=== PATIENT | male | born 1970 | race African-American/Black ===

== ENCOUNTER 2019-08-12 16:37 | Emergency (ER) | payer OTHER, SELFPAY ==
[2019-08-12 16:48] VITALS: BP 117/65; PULSE 90; RESP 16; TEMP 36.9; O2SAT 98
--- NOTE | 2019-08-12 17:43 | ED.GENADULT ---
HPI - General Adult General Chief complaint: Upper Respiratory Infection Stated complaint: Sinus/back pain/bodyaches Time Seen by Provider: 08/12/19 17:43 Source: patient and RN notes reviewed Mode of arrival: ambulatory Limitations: no limitations History of Present Illness HPI narrative: 49-year-old male presents with complaints of chronic lower back and left upper back pain for the past 2 days. Denies new injuries or falls. Denies radiating pain, numbness, or tingling. Denies fever or chills. No upper or lower extremity pain or weakness. Exacerbating factors consist of prolong standing and bending. Denies nausea, vomiting, or abdominal pain. Denies problems with urinating or having a bowel movement, LBM today per patient and normal. No flank pain or hematuria or dysuria. Complaints of upper respiratory infection, facial congestion, facial pain, cough, and intermittent headaches (not the worst of her life) for the past 2-3 weeks. Vitamin C 500mg with little to no relief. No facial swelling. Dry cough, intermittent productive cough (yellow phlegm). Nasal congestion and rhinorrhea. No chest pain or shortness of breath. Exacerbating factors consist of smoke exposure. Denies fever or chills. Denies nausea, vomiting, and abdominal pain. Tolerating po intake well. Remains active. Some parts of this dictation were generated by voice recognition software and may contain typographical and/or grammatical inaccuracies. Related Data Allergies Allergy/AdvReac Type Severity Reaction Status Date / Time ciprofloxacin Allergy Intermediate Swelling Verified 05/21/19 00:22 codeine Allergy Intermediate panic Verified 05/21/19 00:22 attack Review of Systems Review of Systems: Narrative: CONSTITUTIONAL: Denies fever, chills, sweats. EYES: Denies visual changes, redness, discharge. ENT: Complains of rhinorrhea, congestion, facial congestion, facial pain. Denies sore throat, otalgia. CARDIOVASCULAR: Denies chest pain, palpitations, edema. RESPIRATORY: Denies dyspnea, wheezing. Complains of cough, intermittent productive. GASTROINTESTINAL: Denies abdominal pain, nausea, vomiting, diarrhea. GENITOURINARY: Denies dysuria, hematuria, abnormal discharge. SKIN: Denies rash or itching. MUSCULOSKELETAL: Complains of diffused lower back pain. Denies joint pain or myalgia. NEUROLOGIC: Denies numbness or focal weakness. Complains of intermittent CHENG. PSYCHIATRIC: Denies anxiety or depression. All systems reviewed & are unremarkable except as noted in HPI and below. [facility] Past Medical History Medical History Anxiety Back pain GERD (gastroesophageal reflux disease) Hyperlipemia Shoulder fracture, right Sinus problem Surgical History Surgical History History of back surgery History of shoulder surgery right shoulder Fx repair Family History Family History (Updated 08/12/19 @ 18:22 by JOSHUA Espinoza) Sibling Hypertension Social History Social History (Updated 08/12/19 @ 18:22 by JOSHUA Espinoza) Smoking packs per day: 0.5 Smoking cigarettes per day: 10.0 Smoking status: Smoker, status unknown Second hand tobacco smoke exposure: No Alcohol intake: current Substance use: current Substance use type: marijuana Living arrangements: with family Gender identity (if verbalized by the patient): Male Comments At time of signature, agree with nurse past medical, surgical, social, and family history. There is no relevant family history pertinent to the presenting complaint. Exam Narrative: Exam Narrative: GENERAL: This is a well-nourished, well-developed patient, in no apparent distress. Talks in full sentences without deficits and ambulates with steady gait without dyspnea. HEAD: normocephalic, atraumatic. EYES: PERRL. Sclera clear/white. Vision is grossly int
[2019-08-12] MEDS: KETOROLAC (*BKC) 60 MG/2 ML VIAL IM (18:02)
== END 2019-08-12 18:27 | disposition home or self-care (01) ==
PROVIDERS: Emergency Provider Nurse Practitioner Family
DX: M54.5 Low back pain (principal); J01.10 Acute frontal sinusitis, unspecified; F17.210 Nicotine dependence, cigarettes, uncomplicated; F41.9 Anxiety disorder, unspecified; K21.9 Gastro-esophageal reflux disease without esophagitis; E78.5 Hyperlipidemia, unspecified
CPT/HCPCS: 96372; 99213; G0463; J1885

== ENCOUNTER 2019-11-17 16:46 | Emergency (ER) | payer OTHER, SELFPAY ==
[2019-11-17 16:55] VITALS: BP 122/75; PULSE 78; RESP 16; TEMP 36.6; O2SAT 99
--- NOTE | 2019-11-17 16:59 | ED.GENADULT ---
HPI - General Adult General Chief complaint: Abdominal Pain Stated complaint: abdominal pain Time Seen by Provider: 11/17/19 16:59 Source: patient Mode of arrival: ambulatory Limitations: no limitations History of Present Illness HPI narrative: 49-year-old male patient presents to the [facility] with complaints of abdominal pain nausea vomiting that started approximately 4:00 today. Patient states he ate some Croatian food before going into work today states when he got to work he had an episode of vomiting. Patient states he only vomited one time. Patient states he does not feel nauseated at this time. Denies any diarrhea. Patient states last bowel movement was earlier this afternoon. Denies any fevers body aches or chills. Denies any chest pain or shortness of breath. Related Data Home Medications Medication Instructions Recorded Confirmed No Home Medications 11/17/19 11/17/19 Allergies Allergy/AdvReac Type Severity Reaction Status Date / Time ciprofloxacin Allergy Intermediate Swelling Verified 05/21/19 00:22 codeine Allergy Intermediate panic Verified 05/21/19 00:22 attack Review of Systems Review of Systems: Narrative: CONSTITUTIONAL: Denies fever, chills, or sweats. EYES: Denies visual changes, redness, or discharge. ENT: Denies rhinorrhea, congestion, sore throat, or otalgia. CARDIOVASCULAR: Denies chest pain, palpitations, or edema. RESPIRATORY: Denies cough or dyspnea. GASTROINTESTINAL: Denies abdominal pain, positive nausea, vomiting, denies diarrhea. GENITOURINARY: Denies dysuria or hematuria. SKIN: Denies rash or itching. MUSCULOSKELETAL: Denies back pain, joint pain, or myalgia. NEUROLOGIC: Denies headache, numbness, or weakness. PSYCHIATRIC: Denies anxiety or depression. [facility] Past Medical History Medical History Anxiety Back pain GERD (gastroesophageal reflux disease) Hyperlipemia Shoulder fracture, right Sinus problem Surgical History Surgical History History of back surgery History of shoulder surgery right shoulder Fx repair Family History Family History Sibling Hypertension Social History Social History Smoking packs per day: 0.5 Smoking cigarettes per day: 10.0 Smoking status: Smoker, status unknown Second hand tobacco smoke exposure: No Alcohol intake: current Substance use: current Substance use type: marijuana Gender identity (if verbalized by the patient): Male Comments At the time of my signature I agree with nursing past medical history, surgical, social, and family history. There is no relevant family history pertinent to the presenting complaint. Exam Narrative: Exam Narrative: GENERAL: Well-appearing, well-nourished, and in no acute distress. HEAD: Normocephalic, atraumatic. EYES: PERRLA and EOMI. ENT: Nares clear, no rhinorrhea or epistaxis. Mucous membranes moist. NECK: Supple. No lymphadenopathy CHEST: Clear to auscultation. No respiratory distress. HEART: Regular rate and rhythm. No murmur heard. Normal peripheral pulses. ABDOMEN: Soft, distended. No guarding, rebound tenderness, or rigid. No pulsatilla masses. Hyperactive bowel sounds present in all four quadrants. Tenderness noted to the left upper quadrant, left lower quadrant, and right upper quadrant on palpation. No organomegaly. Negative Aguilar?s sign. No periumbicial tenderness. No Supra public tenderness or distension. Good femoral pulses bilaterally. No hernia noted. No scars or surface trauma. EXTREMITIES: Normal range of motion. No edema. SKIN: Warm, dry, no rash. NEURO: No focal deficits. Alert and oriented x3. Course Vital Signs Vital signs: Vital Signs Temperature 36.6 C 11/17/19 16:55 Pulse Rate 78 11/17/19 16:55 Respiratory Rate
== END 2019-11-17 17:08 | disposition short-term general hospital (02) ==
PROVIDERS: Emergency Provider Nurse Practitioner Family
DX: R11.2 Nausea with vomiting, unspecified (principal); R10.12 Left upper quadrant pain; R10.32 Left lower quadrant pain; R10.11 Right upper quadrant pain; F17.210 Nicotine dependence, cigarettes, uncomplicated
CPT/HCPCS: 99212; G0463

== ENCOUNTER 2019-11-17 17:31 | Emergency (ER) | payer OTHER, SELFPAY ==
[2019-11-17 17:36] VITALS: PULSE 77; RESP 18; TEMP 36.8; O2SAT 99
[2019-11-17 18:05] LABS: Basophils Absolute Auto 0.1 K/mm3 (0.0-0.1); Basophils Percent Auto 1.7 % (0.2-1.2); Eosinophils Absolute Auto 0.1 K/mm3 (0-0.3); Hematocrit 48.6 % (42.0-52.0); Hemoglobin 16.1 g/dL (14.0-18.0); Immature Granulocyte Absolute 0.01 K/mm3 (0.00-0.031); Immature Granulocyte Percent A 0.2 % (0-0.5); Lymphocytes Absolute Auto 2.57 K/mm3 (0.9-3.2); Lymphocytes Percent Auto 39.4 % (18.3-44.2); Mean Corpuscular HGB Conc 33.1 g/dl (32-36); Mean Corpuscular Hemoglobin 28.3 pg (26-34); Mean Corpuscular Volume 85.4 fl (80-100); Mean Platelet Volume 9.6 fl (7.4-10.4); Monocytes Absolute Auto 0.5 K/mm3 (0.1-0.6); Neutrophils Absolute Auto 3.3 K/mm3 (1.3-6.7); Neutrophils Percent Auto 49.7 % (45.5-73.1); Platelet Count Result 202 k/mm3 (150-375); Red Blood Count 5.69 M/mm3 (4.6-6.20); Red Cell Distribution Width 14.2 % (11.5-14.5); White Blood Count 6.5 K/mm3 (4.5-10.0)
--- NOTE | 2019-11-17 18:10 | PC.NURSE ---
Pt states after eating lunch he started to have nausea and vomiting. Pt states he went to and after provider was pushing his abd he started having abd pain. Pt states he no longer has abd pain but has nausea. Pt states he has had surgery on his lower abd and back. Pt appears in NAD.
[2019-11-17 18:18] LABS: Alanine Aminotransferase 25 U/L (4-50); Albumin Level 4.3 g/dL (3.5-5.1); Alkaline Phosphatase 65 U/L (38-126); Aspartate Amino Transferase 39 U/L (17-59); Bilirubin,Total 0.5 mg/dL (0.2-1.3); Blood Urea Nitrogen 14 mg/dL (9-20); Carbon Dioxide 28 mmol/L (22-30); Chloride 105 mmol/L (98-107); Estimated CRCL calculation 70 ml/min; Estimated Glomerular Filt Rate > 60; Glucose 93 mg/dL (75-110); Lipase 70 U/L (23-300); Potassium 4.3 mmol/L (3.4-5.0); Sodium 137 mmol/L (137-145)
[2019-11-17 18:24] LABS: Add Urine Microscopic? NO; Appearance Urine Clear (Clear); Bilirubin Urine Negative (Negative); Blood Urine Negative (Negative); Color Urine Straw (Yellow); Glucose Urine UA Negative (Negative); Ketones Urine Negative (Negative); Leukocyte Esterase Ur Negative LEU/UL (Negative); Nitrate Urine Negative (Negative); Protein Urine Negative (Negative); Specific Grav Ur 1.012 (1.001-1.035); Urobilinogen Urine Negative mg/dL (<2.0)
--- NOTE | 2019-11-17 18:37 | ED.GENADULT ---
HPI - General Adult General Chief complaint: Abdominal Pain Stated complaint: abd pain Time Seen by Provider: 11/17/19 18:16 Source: patient History of Present Illness HPI narrative: 49 years old -[place] male, insignificant past medical history had a Wolof lunch at noon today, patient probably ate so fast, then vomited once. Went to urgent care, told him that you have some tenderness in the abdomen although the patient denies any abdominal pain. Patient was referred to the emergency room for further evaluation. Currently patient is awake alert oriented x4, denying any symptoms. Patient reports that he needs some medicine for postnasal discharge and nasal congestion also he been feeling anxious lately and would like antianxiety medication. Related Data Allergies Allergy/AdvReac Type Severity Reaction Status Date / Time ciprofloxacin Allergy Intermediate Swelling Verified 11/17/19 17:40 codeine Allergy Intermediate panic Verified 11/17/19 17:40 attack Review of Systems Review of Systems: Narrative: Review of systems cONSTITUTIONAL: Denies fever, chills, or sweats. EYES: Denies visual changes, redness, or discharge. ENT: Denies rhinorrhea, congestion, sore throat, or otalgia. CARDIOVASCULAR: Denies chest pain, palpitations, or edema. RESPIRATORY: Denies cough or dyspnea. GASTROINTESTINAL: Denies abdominal pain, nausea, vomiting, or diarrhea. GENITOURINARY: Denies dysuria or hematuria. SKIN: Denies rash or itching. MUSCULOSKELETAL: Denies back pain, joint pain, or myalgia. NEUROLOGIC: Denies headache, numbness, or weakness. PSYCHIATRIC: Denies anxiety or depression. [facility] Past Medical History Medical History Anxiety Back pain GERD (gastroesophageal reflux disease) Hyperlipemia Shoulder fracture, right Sinus problem Surgical History Surgical History History of back surgery History of shoulder surgery right shoulder Fx repair Family History Family History Sibling Hypertension Social History Social History Smoking packs per day: 0.5 Smoking cigarettes per day: 10.0 Smoking status: Smoker, status unknown Second hand tobacco smoke exposure: No Alcohol intake: current Substance use: current Substance use type: marijuana Gender identity (if verbalized by the patient): Male Exam Narrative: Exam Narrative: General appearance: Well-developed, well-nourished Skin: Normal color Head: Normocephalic, nontraumatic Eyes: Clear conjunctiva ENT: Oropharynx normal, ears normal, nose normal Neck: Supple, nontender Chest and respiratory: Airway patent, no respiratory distress, no accessory muscle use Heart: Regular rate/rhythm Abdomen: Soft, nontender, no organomegaly, quiet bowel sounds Vascular: Normal peripheral pulses, normal capillary refill. Musculoskeletal: Normal range of motion, nontender back Neurologic: Alert and oriented ?3, [employer] is normal as tested, no gross motor deficit Course Course Emergency Course: Stable Vital Signs Vital signs: Vital Signs Temperature 36.8 C 11/17/19 17:36 Pulse Rate 77 11/17/19 17:36 Respiratory Rate 18 11/17/19 17:36 Pulse Oximetry 99 11/17/19 17:36 Temperature 36.8 C 11/17/19 17:36 Pulse Rate 77 11/17/19 17:36 Respiratory Rate 18 11/17/19 17:36 Pulse Oximetry 99 11/17/19 17:36 Medical Decision Making MDM Narrative Medical decision making narrative: Patient vomited once after a Wolof meal. Currently asymptomatic, denying
--- NOTE | 2019-11-17 19:44 | PC.NURSE ---
Pt requested work note, left before receiving one stated he didn't feel like waiting.
== END 2019-11-17 19:44 | disposition home or self-care (01) ==
PROVIDERS: Emergency Provider Emergency Medicine
DX: R11.2 Nausea with vomiting, unspecified (principal); J30.1 Allergic rhinitis due to pollen; F41.9 Anxiety disorder, unspecified; K21.9 Gastro-esophageal reflux disease without esophagitis; E78.5 Hyperlipidemia, unspecified; F17.210 Nicotine dependence, cigarettes, uncomplicated
CPT/HCPCS: 36415; 80053; 81003; 83690; 85025; 99283

== ENCOUNTER 2019-12-10 13:21 | Emergency (ER) | payer OTHER, SELFPAY ==
--- NOTE | ~2019-12-10 | CT_ITS ---
EXAMINATION: CT cervical spine wo con DATE: 12/10/2019 17:59 INDICATION: Neck pain TECHNIQUE: Computed tomography (CT) of the cervical spine was performed without intravenous contrast. The dose-length product was 506 mGy-cm. Automated exposure control and iterative reconstruction tech nique were employed. COMPARISON: None FINDINGS: Vertebral body and disc heights are preserved. There is reversal of cervical lordosis, like ly due to muscle spasm or patient positioning. There are mild facet degenerative changes on the left at C2-3 and C3-4. No acute fracture or traumatic malalignment. Odontoid process within normal limits. Lung apices are unremarkable. Mastoids are pneumatized. IMPRESSION: 1. No acute abnormality of the cervical spine. 2: Mild cervical spondylosis. Reviewed, dictated and finalized at location A.
--- NOTE | ~2019-12-10 | CT_ITS ---
EXAMINATION: CT BRAIN W/O DATE: 12/10/2019 17:58 INDICATION: Headache for 2 weeks TECHNIQUE: Computed tomography (CT) of the head was performed without intravenous contrast. The dose- length product was 681.00 mGy-cm. Automated exposure control and iterative reconstruction technique w ere employed. COMPARISON: CT dated 09/30/2014 FINDINGS: Normal brain parenchymal volume for age. Normal alanis-white differentiation. No acute intrac ranial hemorrhage, infarction, mass or mass effect. No ventriculomegaly or midline shift. Midline sagittal images demonstrate a normal corpus callosum, c raniovertebral junction and sella turcica. Basilar cisterns are patent. Paranasal sinuses and mastoids are pneumatized. No depressed skull fractures. IMPRESSION: 1. No acute intracranial abnormality. Reviewed, dictated and finalized at location A.
[2019-12-10 14:45] VITALS: BP 118/75; PULSE 81; RESP 18; TEMP 36.9; O2SAT 97
[2019-12-10 16:24] VITALS: BP 124/92; PULSE 86; RESP 18; O2SAT 95
[2019-12-10] MEDS: ACETAMINOPHEN 500 MG TABLET 1000 MG PO (17:39)
[2019-12-10] MEDS: KETOROLAC (*BKC) 60 MG/2 ML VIAL IM (17:40)
--- NOTE | 2019-12-10 18:23 | ED.GENADULT ---
HPI - General Adult General Chief complaint: Unspecified Stated complaint: left sided h/a and left arm pain Time Seen by Provider: 12/10/19 16:30 Source: patient Mode of arrival: ambulatory Limitations: no limitations History of Present Illness HPI narrative: This is a 49 year old male that presents to the ER for intermittent headaches for the last 2 weeks. Also reports some neck pain that radiates into the left arm. Reports history of neck problems. No recent injury or trauma. Denies fever, vision changes, vomiting, numbness or weakness. Related Data Allergies Allergy/AdvReac Type Severity Reaction Status Date / Time ciprofloxacin Allergy Intermediate Swelling Verified 12/10/19 16:25 Review of Systems Review of Systems: Narrative: CONSTITUTIONAL: Denies fever EYES: Denies visual changes MUSCULOSKELETAL: Reports joint pain, and myalgia. NEUROLOGIC: Reports headache. Denies numbness, or weakness. All systems reviewed & are unremarkable except as noted in HPI and below PMFSH Social History Social History Smoking packs per day: 0.5 Smoking cigarettes per day: 10.0 Smoking status: Smoker, status unknown Second hand tobacco smoke exposure: No Alcohol intake: current Substance use: current Substance use type: marijuana Gender identity (if verbalized by the patient): Male Exam Narrative: Exam Narrative: GENERAL: Well-appearing, well-nourished, and in no acute distress. HEAD: Normocephalic, atraumatic. EYES: PERRLA and EOMI. ENT: Nares clear, no rhinorrhea or epistaxis. Mucous membranes moist. Oropharynx without tonsillar hypertrophy exudate or other lesions. Bilateral TMs pearly alanis non-bulging NECK: Supple. No adenopathy or masses. No midline spinal tenderness. Normal ROM CHEST: Clear to auscultation. No respiratory distress. No wheezes rales or rhonchi HEART: Regular rate and rhythm. No murmur heard. Normal peripheral pulses. EXTREMITIES: Normal range of motion. No edema. Strength equal in bilateral upper extremities (5/5) SKIN: Warm, dry, no rash. NEURO: No focal deficits. Alert and oriented x3. Cranial nerves II through XII grossly intact. Normal [id number] PSYCH: Normal mood and affect Course Vital Signs Vital signs: Vital Signs Temperature 98.5 F 12/10/19 14:45 Pulse Rate 81 12/10/19 14:45 Respiratory Rate 18 12/10/19 14:45 Blood Pressure 118/75 12/10/19 14:45 Pulse Oximetry 97 12/10/19 14:45 Temperature 98.5 F 12/10/19 14:45 Pulse Rate 86 12/10/19 16:24 Respiratory Rate 18 12/10/19 16:24 Blood Pressure 124/92 H 12/10/19 16:24 Pulse Oximetry 95 12/10/19 16:24 Medical Decision Making MDM Narrative Medical decision making narrative: Patient presents the emergency department for intermittent headaches and neck pain for the last 2 weeks. No known injury or trauma. Patient is afebrile and nontoxic-appearing. He is neurologically intact. CT scan of the brain and cervical spine are without acute findings. Patient updated on case findings. He is stable and felt appropriate for the outpatient evaluation. He was given warnings to return to the ER Vital Signs Vital Signs: Vital Signs Temperature 98.5 F 12/10/19 14:45 Pulse Rate 81 12/10/19 14:45 Respiratory Rate 18 12/10/19 14:45 Blood Pressure 118/75 12/10/19 14:45 Pulse Oximetry 97 12/10/19 14:45 Temperature 98.5 F 12/10/19 14:45 Pulse Rate 86 12/10/19 16:24 Respiratory Rate 18 12/10/19 16:24 Blood Pressure 124/92 H 12/10/19 16:24 Pulse Oximetry 95 12/10/19 16:24 Imaging Data Radiologist's impression: ITS Impressions Head CT 12/10/19 17:59 IMPRESSION: 1. No acute intracranial abnormality. Cervical Spine CT 12/10/19 18:04 IMPRESSION: 1. No acute abnormality of the cervical spine. 2: Mild cervical spondylosis. Critical Care Time Critical Care Time Critical Care Time: No Discharge
[2019-12-10 19:10] VITALS: BP 129/79; PULSE 68; RESP 18; O2SAT 97
== END 2019-12-10 19:11 | disposition home or self-care (01) ==
PROVIDERS: Emergency Provider Emergency Medicine
DX: R51 Headache (principal); M54.2 Cervicalgia; M47.812 Spondylosis without myelopathy or radiculopathy, cervical region; F17.210 Nicotine dependence, cigarettes, uncomplicated
CPT/HCPCS: 70450; 72125; 96372; 99284; A9270; J1885

== ENCOUNTER 2020-01-25 14:48 | Emergency (ER) | payer OTHER, SELFPAY ==
--- NOTE | ~2020-01-25 | CT_ITS ---
EXAMINATION: CT abdomen pelvis w con DATE: 01/25/2020 16:04 INDICATION: Abdomen pain for 2 days. TECHNIQUE: Computed tomography (CT) of the abdomen and pelvis was performed with 100 cc Omnipaque 350 intravenous contrast. The dose-length product was 660.83 mGy-cm. Automated exposure control and iter ative reconstruction technique were employed. COMPARISON: CT dated 08/30/2018 FINDINGS: Heart size normal. No significant pleural or pericardial effusion. No significant vascular abnormality. Small ileocolic lymph nodes are present, nonspecific. Prostate gland is enlarged. There is heterogeneous soft tissue at the cecum, suspicious for malignancy. Appendix is normal. No ly mphadenopathy. Small subcentimeter hypodensity of the liver, most likely benign. The spleen, pancreas , adrenal glands are unremarkable. Small subcentimeter hypodensities of the left kidney, most likely benign cysts. Gallbladder is present. There are surgical changes at L4-5 and L5-S1. IMPRESSION: 1. Heterogeneously enhancing soft tissue at the cecum, suspicious for adenocarcinoma. Recommend furth er clinical evaluation. No obstruction. Reviewed, dictated and finalized at location A. IMPRESSION: 1. Heterogeneously enhancing soft tissue at the cecum, suspicious for adenocarc inoma. Recommend further clinical evaluation. No obstruction.
[2020-01-25 14:50] VITALS: BP 122/79; PULSE 91; RESP 18; TEMP 36.1; O2SAT 99
--- NOTE | 2020-01-25 15:17 | ED.GENADULT ---
HPI - General Adult General Chief complaint: Abdominal Pain Stated complaint: ABD PAIN X2D Time Seen by Provider: 01/25/20 14:56 Source: patient History of Present Illness HPI narrative: Patient is a 49 y/o male complaining of right upper abdominal pain starting 2 days ago. He states that he was drinking Stu night and he is not sure if he had injury. He describes his pain as sharp and rates it as 8/10. There is some pain radiation to left abdomen. He has no vomiting, diarrhea or dysuria. Related Data Allergies Allergy/AdvReac Type Severity Reaction Status Date / Time ciprofloxacin Allergy Intermediate Swelling Verified 12/10/19 16:25 Review of Systems Constitutional: Constitutional: Denies chills, Denies fever(s), Denies headache(s) and Denies weakness Eyes: Eyes: Denies blurry vision ENT: Denies headache(s) and Denies neck pain Cardiovascular: Cardiovascular: Denies chest pain and Denies dyspnea Respiratory: Respiratory: Denies cough and Denies dyspnea Gastrointestinal: Gastrointestinal: Reports abdominal pain, Denies diarrhea, Denies nausea and Denies vomiting Genitourinary: Genitourinary: Denies hematuria and Denies dysuria Musculoskeletal: Musculoskeletal: Denies back pain and Denies neck pain Neurologic: Denies headache(s) and Denies weakness PMFSH Past Medical History Medical History Anxiety Back pain GERD (gastroesophageal reflux disease) Hyperlipemia Shoulder fracture, right Sinus problem Surgical History Surgical History History of back surgery History of shoulder surgery right shoulder Fx repair Family History Family History Sibling Hypertension Social History Social History Smoking packs per day: 0.5 Smoking cigarettes per day: 10.0 Smoking status: Smoker, status unknown Second hand tobacco smoke exposure: No Alcohol intake: current Substance use: current Substance use type: marijuana Gender identity (if verbalized by the patient): Male Exam Const: General: no acute distress and well developed Orientation/consciousness: oriented to person, oriented to place, oriented to time and patient oriented x3 HENMT: Head: normocephalic Ears: external ears normal General nose exam: Normal external nose present Eyes: General: appearance normal, both eyes and all related structures Conjunctivae: conjunctivae normal Neck: Neck: normal visual inspection and full ROM Chest: Chest palpation & inspection: normal inspection of the chest and no tenderness Resp: Effort & Inspection: normal respiratory effort Auscultation: clear to auscultation bilaterally Cardio: Rate: regular rate Rhythm: regular rhythm GI: GI Palp: No abdominal tenderness and Yes Soft to palpation Skin: General skin exam: normal color and turgor normal Neuro: General: oriented to person, oriented to place, oriented to time and patient oriented x3 Cognition (Neuro): normal cognition Extrem: General: normal to inspection, full ROM and no pedal edema Psych: Appearance: grossly normal Mental Status: mental status grossly normal Affect: normal affect Course Reevaluation(s) Reevaluation #1: Discussed with patient about his labs and CT results. Informed patient about suspicious lesion which may suggest colon ca. I advised patient to be admitted for urgent work up. However, he states that he does not want to be admitted because there is no one to take care of his child. I instructed him to contact his PCP or GI for further work up. Date: 01/25/20 Time: 17:17 Consultations Consultation #1: Discussed with Dr. Pietro Lopez (GI). He states that he will follow up with patient for colonoscopy. Date: 01/25/20 Time: 17:22 Vital Signs Vital signs: Vital Signs Temperature 36.1 C L 01/25/20 14:
[2020-01-25 15:23] LABS: Basophils Absolute Auto 0.1 K/mm3 (0.0-0.1); Basophils Percent Auto 0.9 % (0.2-1.2); Eosinophils Absolute Auto 0.2 K/mm3 (0-0.3); Eosinophils Percent Auto 2.1 % (0-4.4); Hematocrit 49.6 % (42.0-52.0); Hemoglobin 16.6 g/dL (14.0-18.0); Immature Granulocyte Absolute 0.04 K/mm3 (0.00-0.031); Immature Granulocyte Percent A 0.5 % (0-0.5); Lymphocytes Absolute Auto 2.44 K/mm3 (0.9-3.2); Lymphocytes Percent Auto 28.8 % (18.3-44.2); Mean Corpuscular HGB Conc 33.5 g/dl (32-36); Mean Corpuscular Hemoglobin 28.4 pg (26-34); Mean Corpuscular Volume 84.8 fl (80-100); Mean Platelet Volume 10.1 fl (7.4-10.4); Monocytes Absolute Auto 0.5 K/mm3 (0.1-0.6); Monocytes Percent Auto 6.1 % (2.6-8.5); Neutrophils Absolute Auto 5.2 K/mm3 (1.3-6.7); Neutrophils Percent Auto 61.6 % (45.5-73.1); Platelet Count Result 216 k/mm3 (150-375); Red Blood Count 5.85 M/mm3 (4.6-6.20); Red Cell Distribution Width 14.6 % (11.5-14.5); White Blood Count 8.5 K/mm3 (4.5-10.0)
[2020-01-25 15:26] LABS: Add Urine Microscopic? YES; Appearance Urine Clear (Clear); Bilirubin Urine Negative (Negative); Blood Urine 1+ (Negative); Color Urine Yellow (Yellow); Glucose Urine UA Negative (Negative); Ketones Urine Negative (Negative); Leukocyte Esterase Ur Negative LEU/UL (Negative); Mucus Urine Rare /lpf; Nitrate Urine Negative (Negative); Protein Urine Negative (Negative); RBC Urine 0-2 /hpf (0-2); Specific Grav Ur 1.015 (1.001-1.035); Squamous Epithelial Cell Urine Rare /hpf (Few); Urobilinogen Urine Negative mg/dL (<2.0); WBC Urine 0-3 /hpf
[2020-01-25 15:36] LABS: Alanine Aminotransferase 18 U/L (4-50); Albumin Level 4.2 g/dL (3.5-5.1); Alkaline Phosphatase 89 U/L (38-126); Anion Gap 6 mmol/L (8-16); Aspartate Amino Transferase 29 U/L (17-59); Bilirubin,Total 0.4 mg/dL (0.2-1.3); Blood Urea Nitrogen 13 mg/dL (9-20); Calcium 8.9 mg/dL (8.4-10.2); Carbon Dioxide 25 mmol/L (22-30); Chloride 106 mmol/L (98-107); Estimated Glomerular Filt Rate > 60; Glucose 89 mg/dL (75-110); Lipase 76 U/L (23-300); Potassium 4.3 mmol/L (3.4-5.0); Sodium 137 mmol/L (137-145)
[2020-01-25 17:00] VITALS: BP 135/60; PULSE 70; RESP 12; O2SAT 99
== END 2020-01-25 17:26 | disposition home or self-care (01) ==
PROVIDERS: Emergency Medicine; Emergency Provider Emergency Medicine; PCP Emergency Medicine
DX: K63.9 Disease of intestine, unspecified (principal); K21.9 Gastro-esophageal reflux disease without esophagitis; E78.5 Hyperlipidemia, unspecified; F17.210 Nicotine dependence, cigarettes, uncomplicated
CPT/HCPCS: 36415; 74177; 80053; 81001; 83690; 85025; 99284; Q9967

== ENCOUNTER 2020-05-14 22:41 | Emergency (ER) | payer OTHER, SELFPAY ==
[2020-05-14 22:49] VITALS: BP 125/90; PULSE 93; RESP 14; TEMP 36.4; O2SAT 99
--- NOTE | 2020-05-14 22:57 | ECG_ITS ---
Measurements Intervals [place] Rate: 78 P: 65 [place]: 142 QRS: -33 QRSD: 85 T: -22 QT: 348 QTc: 398 Interpretive Statements SINUS RHYTHM POSSIBLE LEFT ATRIAL ENLARGEMENT LEFT AXIS DEVIATION EARLY PRECORDIAL R/S TRANSITION NONSPECIFIC T-WAVE ABNORMALITY- INF/LAT LEADS BASELINE WANDER- II, III, V1-V3 BORDERLINE ECG Electronically Signed On 05-15-2020 9:23:12 DIRECTOR SEMICONDUCTOR by Cyril Leroy D.O.
[2020-05-14 23:06] LABS: Glucose Point of Care 118 (65-105)
[2020-05-14 23:09] LABS: Basophils Absolute Auto 0.1 K/mm3 (0.0-0.1); Basophils Percent Auto 1.3 % (0.2-1.2); Eosinophils Absolute Auto 0.3 K/mm3 (0-0.3); Hematocrit 49.9 % (42.0-52.0); Immature Granulocyte Absolute 0.02 K/mm3 (0.00-0.031); Immature Granulocyte Percent A 0.2 % (0-0.5); Lymphocytes Percent Auto 39.5 % (18.3-44.2); Mean Corpuscular HGB Conc 34.1 g/dl (32-36); Mean Corpuscular Hemoglobin 29.6 pg (26-34); Mean Corpuscular Volume 86.8 fl (80-100); Mean Platelet Volume 9.7 fl (7.4-10.4); Monocytes Absolute Auto 0.6 K/mm3 (0.1-0.6); Neutrophils Absolute Auto 4.7 K/mm3 (1.3-6.7); Platelet Count Result 209 k/mm3 (150-375); Red Blood Count 5.75 M/mm3 (4.6-6.20); Red Cell Distribution Width 14.4 % (11.5-14.5); White Blood Count 9.4 K/mm3 (4.5-10.0)
[2020-05-14 23:21] LABS: Anion Gap 8 mmol/L (8-16); Blood Urea Nitrogen 18 mg/dL (9-20); Calcium 8.9 mg/dL (8.4-10.2); Carbon Dioxide 27 mmol/L (22-30); Chloride 103 mmol/L (98-107); Estimated Glomerular Filt Rate > 60; Glucose 118 mg/dL (75-110); Sodium 138 mmol/L (137-145)
--- NOTE | 2020-05-14 23:35 | ED.NECK ---
HPI - Neck Pain/Injury General Chief Complaint: Neck Pain/Injury Stated Complaint: neck pain Time Seen by Provider: 05/14/20 23:35 Source: patient Mode of arrival: ambulatory Limitations: no limitations History of Present Illness HPI Narrative: Patient is a 49-year-old male with a history of chronic neck pain secondary to an accident several months ago who presents for evaluation of muscle pain in his left neck. Patient states this worsened acutely this evening. He only has pain when he turns his neck or looks down. Reports a tingling sensation in his left hand without a decrease in strength. He reports pain in his left neck area without shoulder pain, chest pain or shortness of breath. No nausea, vomiting or diaphoresis. No recent falls or injury. Patient states he has a neurosurgeon in [place] who he has been following with and has a follow-up appointment in June. Patient denies any difficulty with speech, lower leg weakness or numbness. Patient states he wanted to be evaluated to make sure that he cannot become paralyzed from moving his neck. Related Data Allergies Allergy/AdvReac Type Severity Reaction Status Date / Time ciprofloxacin Allergy Intermediate Swelling Verified 12/10/19 16:25 Review of Systems Review of Systems: Narrative: CONSTITUTIONAL: Denies fever EYES: Denies visual changes ENT: Denies rhinorrhea, congestion, sore throat, or otalgia. CARDIOVASCULAR: Denies chest pain, palpitations, or edema. RESPIRATORY: Denies cough or dyspnea. GASTROINTESTINAL: Denies abdominal pain, nausea, vomiting, or diarrhea. GENITOURINARY: Denies dysuria or hematuria. SKIN: Denies rash or itching. MUSCULOSKELETAL: Denies back pain, reports neck pain, reports soreness in the muscle in his left neck NEUROLOGIC: Denies headache, numbness, or weakness. [facility] Past Medical History Medical History (Updated 05/15/20 @ 00:00 by Juana Campbell MD) Anxiety Back pain GERD (gastroesophageal reflux disease) Hyperlipemia Shoulder fracture, right Sinus problem Surgical History Surgical History History of back surgery History of shoulder surgery right shoulder Fx repair Family History Family History Sibling Hypertension Social History Social History Smoking packs per day: 0.5 Smoking cigarettes per day: 10.0 Smoking status: Smoker, status unknown Second hand tobacco smoke exposure: No Alcohol intake: current Substance use: current Substance use type: marijuana Gender identity (if verbalized by the patient): Male Exam Narrative: Exam Narrative: GENERAL: Awake, alert, conversant HEAD: Normocephalic, atraumatic. EYES: PERRLA and EOMI. ENT: Nares clear, no rhinorrhea or epistaxis. Mucous membranes moist. NECK: Supple. No midline cervical tenderness. Tenderness over the left-sided sternocleidomastoid which exactly reproduces pain. No anterior or posterior cervical lymphadenopathy. There is pain when he moves his left neck to the left and to the right. Mild pain with flexion and extension. No ecchymoses, edema, rash or mass. Tenderness over the left trapezius. CHEST: No respiratory distress, breathing even and non labored HEART: Regular rate, sinus rhythm ABDOMEN:Non distended, non tender EXTREMITIES: Normal range of motion. No edema. Intact sensation left upper extremity in median, ulnar, radial nerve distribution. Radial pulse 2+. Capillary refill less than 3 seconds. SKIN: Warm, dry, no rash. NEURO:No focal deficits. Alert and oriented x3. Finger to nose intact bilaterally. EOMs intact without nystagmus. No facial droop/asymmetry noted bilaterally. Grimace intact. Intact sensation in face. Hearing intact bilaterally. Shoulder shrug intact. Strength 5/5 bilateral upper extremities. Strength 5/5 bilateral lower extremities. Reflexes 2+
[2020-05-15] MEDS: ACETAMINOPHEN 500 MG TABLET 1000 MG PO (00:55)
[2020-05-15] MEDS: KETOROLAC (*BKC) 60 MG/2 ML VIAL 30 MG IM (00:56)
== END 2020-05-15 01:00 | disposition home or self-care (01) ==
PROVIDERS: Emergency Provider Emergency Medicine; PCP Emergency Medicine
DX: S16.1XXA Strain of muscle, fascia and tendon at neck level, initial encounter (principal); X58.XXXA Exposure to other specified factors, initial encounter; K21.9 Gastro-esophageal reflux disease without esophagitis; E78.5 Hyperlipidemia, unspecified
CPT/HCPCS: 36415; 80048; 82948; 85025; 93005; 96372; 99283; A9270; J1885

== ENCOUNTER 2020-10-28 16:53 | Emergency (ER) | payer OTHER, SELFPAY ==
[2020-10-28 17:07] VITALS: BP 122/86; PULSE 80; RESP 16; TEMP 36.2; O2SAT 99
--- NOTE | 2020-10-28 18:19 | ED.GENADULT ---
HPI - General Adult General Chief complaint: Upper Respiratory Infection Stated complaint: sore throat Time Seen by Provider: 10/28/20 18:10 Source: patient and RN notes reviewed Mode of arrival: ambulatory Limitations: no limitations History of Present Illness HPI narrative: Patient presents today complaining of a sore throat since this morning. He believes it may be due to the [place] food he ate last night. Denies a scratching sensation or food getting caught in his throat. Associated symptoms include postnasal drip. Denies congestion, rhinorrhea, cough, fever, shortness of breath, difficulty swallowing. Currently rates his pain 5/10 and has been taking no [id number] treatment prior to arrival. MD complaint: Sore throat Related Data Home Medications Medication Instructions Recorded Confirmed meloxicam 7.5 mg PO BID 10/28/20 10/28/20 sertraline 100 mg PO DAILY 10/28/20 10/28/20 Allergies Allergy/AdvReac Type Severity Reaction Status Date / Time ciprofloxacin Allergy Intermediate Swelling Verified 12/10/19 16:25 Review of Systems Review of Systems: Narrative: CONSTITUTIONAL: Denies body aches, fever, chills, or sweats. EYES: Denies visual changes, redness, or discharge. ENT: Denies rhinorrhea, congestion, or otalgia.+ Sore throat, postnasal drip CARDIOVASCULAR: Denies chest pain, palpitations, or edema. RESPIRATORY: Denies cough or dyspnea. GASTROINTESTINAL: Denies abdominal pain, nausea, vomiting, or diarrhea. GENITOURINARY: Denies dysuria or hematuria. SKIN: Denies rash, itching, or wounds. MUSCULOSKELETAL: Denies back pain, joint pain, or myalgia. NEUROLOGIC: Denies headache, numbness, tingling, or weakness. PSYCH: Denies depression or anxiety. [facility] Past Medical History Medical History (Updated 10/28/20 @ 18:19 by Roxy Allred, WET TRIMMER, ) Anxiety Back pain GERD (gastroesophageal reflux disease) Hyperlipemia Shoulder fracture, right Sinus problem Surgical History Surgical History History of back surgery History of shoulder surgery right shoulder Fx repair Family History Family History Sibling Hypertension Social History Social History Smoking packs per day: 0.5 Smoking cigarettes per day: 10.0 Smoking status: Smoker, status unknown Second hand tobacco smoke exposure: No Alcohol intake: current Substance use: current Substance use type: marijuana Gender identity (if verbalized by the patient): Male Comments At time of signature, I have reviewed and agree with nursing past medical, surgical, social and family history unless otherwise noted. Please see nursing chart for further information. There is no relevant family history pertinent to the presenting complaint Exam Narrative: Exam Narrative: GENERAL: Well-appearing, well-nourished, and in no acute distress. HEAD: Normocephalic, atraumatic. EYES: EOMI. No redness or drainage. Conjunctivae normal. ENT: Mucous membranes pink and moist. Nares clear. No rhinorrhea. TMs normal bilaterally. Throat mildly erythematous without edema or exudate. Uvula midline. NECK: Normal AROM. Supple. No lymphadenopathy. CHEST: No respiratory distress. Clear to auscultation. HEART: Regular rate and rhythm. No murmur appreciated. Normal peripheral pulses. EXTREMITIES: Normal range of motion. No edema. SKIN: Warm, dry, no rash. Capillary refill normal. Normal skin turgor. NEURO: No focal deficits. Alert and oriented x3. Gait steady. PSYCH: Normal affect. No signs of depression or anxiety. Course Vital Signs Vital signs: Vital Signs Temperature 97.2 F L 10/28/20 17:07 Pulse Rate 80 10/28/20 17:07 Respiratory Rate 16 10/28/20 17:07 Blood Pressure 122/86 10/28/20 17:07 Pulse Oximetry 99 10/28/20 17:07 Temperature 97.2 F L 10/28/20 1
== END 2020-10-28 18:27 | disposition home or self-care (01) ==
PROVIDERS: Emergency Provider Nurse Practitioner; PCP Emergency Medicine
DX: J02.9 Acute pharyngitis, unspecified (principal)
CPT/HCPCS: 87081; 87880; 99213; G0463

== ENCOUNTER 2020-11-29 10:17 | Emergency (ER) | payer OTHER, SELFPAY ==
--- NOTE | ~2020-11-29 | XR_ITS ---
EXAMINATION: XR ribs LT 2V w CXR 2V DATE: 11/29/2020 10:52 INDICATION: Left anterior chest pain. TECHNIQUE: Frontal and lateral views of the chest and 2 views of the left ribs on a total of 6 radiog raphs were obtained. COMPARISON: Chest 2 views 10/17/2018 FINDINGS: CHEST TWO VIEWS: There is no pneumonia, pleural effusion, pneumothorax. The heart size is normal. LEFT RIBS: There is no rib fracture. There are changes of anterior and posterior fusion procedures at L5-S1. There are changes of disc replacement at L4-L5. IMPRESSION: 1. No etiology for the patient's symptoms. Reviewed, dictated and finalized at location A.
[2020-11-29 10:26] VITALS: BP 126/94; PULSE 75; RESP 12; TEMP 36.6; O2SAT 99
--- NOTE | 2020-11-29 10:43 | PC.NURSE ---
Pt taken to xray via wheelchair
--- NOTE | 2020-11-29 10:56 | ED.CHESTPAIN ---
HPI - Chest Pain General Chief Complaint: Chest Pain Stated Complaint: Sneezed and chest hurts Time Seen by Provider: 11/29/20 10:18 Source: patient and RN notes reviewed Mode of arrival: ambulatory Limitations: no limitations History of Present Illness HPI narrative: Patient is a 50-year-old male who presents to emergency department for evaluation of chest, midsternal chest pain that began today after sneezing pain is worse with palpation and activity patient denies URI symptoms or other complaints presents in no distress has not taken anything for symptoms Related Data Home Medications Medication Instructions Recorded Confirmed meloxicam 7.5 mg PO BID 10/28/20 10/28/20 sertraline 100 mg PO DAILY 10/28/20 10/28/20 Allergies Allergy/AdvReac Type Severity Reaction Status Date / Time ciprofloxacin Allergy Intermediate Swelling Verified 11/29/20 10:42 Review of Systems Review of Systems: All systems reviewed & are unremarkable except as noted in HPI and below PMFSH Past Medical History Medical History (Updated 11/29/20 @ 10:58 by Joe Walter PA-C) Anxiety Back pain GERD (gastroesophageal reflux disease) Hyperlipemia Shoulder fracture, right Sinus problem Surgical History Surgical History History of back surgery History of shoulder surgery right shoulder Fx repair Family History Family History Sibling Hypertension Social History Social History Smoking packs per day: 0.5 Smoking cigarettes per day: 10.0 Smoking status: Smoker, status unknown Second hand tobacco smoke exposure: No Alcohol intake: current Substance use: current Substance use type: marijuana Gender identity (if verbalized by the patient): Male Exam Narrative: Exam Narrative: GENERAL: Well-appearing, well-nourished, and in no acute distress. HEAD: Normocephalic, atraumatic. EYES: PERRLA and EOMI. ENT: Nares clear, no rhinorrhea or epistaxis. Mucous membranes moist. CHEST: Clear to auscultation. No respiratory distress. No wheezes rales or rhonchi. Tenderness of the left costochondral junctions HEART: Regular rate and rhythm. No murmur heard. . EXTREMITIES: Normal range of motion. No edema. SKIN: Warm, dry, no rash. NEURO: No focal deficits. Alert and oriented x3. Cranial nerves II through XII grossly intact PSYCH: Normal mood and affect. Course Course Emergency Course: Patient in the room no distress ABCs and vital signs intact and stable afebrile nontoxic-appearing Vital Signs Vital signs: Vital Signs Temperature 97.9 F 11/29/20 10:26 Pulse Rate 75 11/29/20 10:26 Respiratory Rate 12 11/29/20 10:26 Blood Pressure 126/94 H 11/29/20 10:26 Pulse Oximetry 99 11/29/20 10:26 Temperature 97.9 F 11/29/20 10:26 Pulse Rate 64 11/29/20 10:58 Respiratory Rate 12 11/29/20 10:26 Blood Pressure 126/94 H 11/29/20 10:26 Pulse Oximetry 99 11/29/20 10:26 MDM - Chest Pain MDM Narrative Medical decision making narrative: Patient with irritation of the chest wall consistent with costochondritis or strain status post sneezing hemodynamically stable no distress felt appropriate for outpatient reevaluation Imaging Data Radiologist's impression: ITS Impressions Ribs w/Chest X-Ray 11/29/20 10:55 IMPRESSION: 1. No etiology for the patient's symptoms. Discharge Plan Discharge Clinical Impression: Acute chest wall pain Patient Disposition: Home, Self-Care Condition: Stable Instructions: Antibiotic Form Additional Instructions: Follow up with your primary care provider within 1-2 days to set up for reevaluation. Go to ER for shortness of breath, difficulty breathing, chest pain, fever/chills, weakness, nauseau/vomitting, etc. or any other concerns. Take any prescribed medications
[2020-11-29 10:58] VITALS: PULSE 64
[2020-11-29] MEDS: KETOROLAC (*BKC) 60 MG/2 ML VIAL IM (11:20)
--- NOTE | 2020-11-29 15:47 | ECG_ITS ---
Measurements Intervals [place] Rate: 63 P: 68 [place]: 139 QRS: -28 QRSD: 93 T: -27 QT: 372 QTc: 383 Interpretive Statements SINUS RHYTHM BORDERLINE ST-T WAVE ABNORMALITY- INFERIOR LEADS BASELINE ARTIFACT- II, III, AVR, AVF, V1, V3-V6 BORDERLINE ECG Electronically Signed On 11-29-2020 16:03:21 CDT by Cyril Leroy D.O.
== END 2020-11-29 11:34 | disposition home or self-care (01) ==
PROVIDERS: Emergency Provider Emergency Medicine
DX: R07.89 Other chest pain (principal); F41.9 Anxiety disorder, unspecified; K21.9 Gastro-esophageal reflux disease without esophagitis; E78.5 Hyperlipidemia, unspecified; F17.210 Nicotine dependence, cigarettes, uncomplicated; R94.31 Abnormal electrocardiogram [ECG] [EKG]
CPT/HCPCS: 71046; 71100; 93005; 96372; 99283; J1885

== ENCOUNTER 2021-01-15 19:11 | Emergency (ER) | payer OTHER, SELFPAY ==
[2021-01-15 19:21] VITALS: BP 120/66; PULSE 81; RESP 16; TEMP 36.3; O2SAT 98
--- NOTE | 2021-01-15 19:32 | ED.BACK ---
HPI - Back Pain/Injury General Chief Complaint: Back Pain/Injury Stated Complaint: Back Pain Time Seen by Provider: 01/15/21 19:32 Source: patient and RN notes reviewed Mode of arrival: ambulatory Limitations: no limitations History of Present Illness HPI Narrative: 50 year old male who presents to [facility] care with complaints of back pain since about 2 hours ago when he picked up a stick out of the yard. Patient states that he is having pain mainly to the left medial area, feels tight and achy has back spams and chronic back pain issues. He reports that he has had lumbar spinal surgery and he also has some problems with his neck with neck surgery pending. Patient denies any radiation of pain to any extremity at this time or any feelings of tingling or numbness. Patient states that he has not taken any medications prior to arrival for his discomfort. MD elicited complaint: back pain Pertinent past history: prior back pain and back surgery Related Data Home Medications Medication Instructions Recorded Confirmed sertraline 100 mg PO DAILY 10/28/20 10/28/20 Allergies Allergy/AdvReac Type Severity Reaction Status Date / Time ciprofloxacin Allergy Intermediate Swelling Verified 01/15/21 19:34 Review of Systems Review of Systems: CONSTITUTIONAL: Denies fever, chills, or sweats. EYES: Denies visual changes, redness, or discharge. ENT: Denies rhinorrhea, congestion, sore throat, or otalgia. CARDIOVASCULAR: Denies chest pain, palpitations, or edema. RESPIRATORY: Denies cough or dyspnea. GASTROINTESTINAL: Denies abdominal pain, nausea, vomiting, or diarrhea. GENITOURINARY: Denies dysuria or hematuria. SKIN: Denies rash or itching. MUSCULOSKELETAL:Positive for left medial acute/chronic back pain, joint pain, or myalgia. NEUROLOGIC: Denies headache, numbness, or weakness. PSYCHIATRIC: Positive history of anxiety or depression. All systems reviewed & are unremarkable except as noted in HPI and below PMFSH Past Medical History Medical History (Updated 01/16/21 @ 00:03 by Dudley Akbar) Anxiety Back pain GERD (gastroesophageal reflux disease) Hyperlipemia Shoulder fracture, right Sinus problem Surgical History Surgical History History of back surgery History of shoulder surgery right shoulder Fx repair Family History Family History Sibling Hypertension Social History Social History Smoking packs per day: 0.5 Smoking cigarettes per day: 10.0 Smoking status: Smoker, status unknown Second hand tobacco smoke exposure: No Alcohol intake: current Substance use: current Substance use type: marijuana Gender identity (if verbalized by the patient): Male Comments At time of signature, agree with nursing past medical, surgical, social and family history. There is no relevant family history pertinent to the presenting complaint Exam Narrative: GENERAL: Well-appearing, well-nourished, and in no acute distress. HEAD: Normocephalic, atraumatic. EYES: PERRLA and EOMI. ENT: Nares clear, no rhinorrhea or epistaxis. Mucous membranes moist.TM's normal with throat normal NECK: Supple.no lymphadenopathy CHEST: Clear to auscultation. No respiratory distress.SAO2 98% on room air HEART: Regular rate and rhythm. No murmur heard. Normal peripheral pulses. ABDOMEN: Soft, nontender, nondistended, normal active bowel sounds. EXTREMITIES: Normal range of motion. No edema.Tightness noted to muscles along left medial back with patient verbalizing feeling as spasms, no radiation of his pain or any stated tingling or numbness. SKIN: Warm, dry, no rash. NEURO: No focal deficits. Alert and oriented x3. Course Vital Signs Vital signs: Vital Signs Temperature 36.3 C L 01/15/21 19:21 Pulse Rate 81 01/15/21 19:21 Respiratory Rate 16 01/15/21 19:2
== END 2021-01-15 19:42 | disposition home or self-care (01) ==
PROVIDERS: Emergency Provider Registered Nurse
DX: M62.830 Muscle spasm of back (principal); F17.210 Nicotine dependence, cigarettes, uncomplicated; K21.9 Gastro-esophageal reflux disease without esophagitis; E78.5 Hyperlipidemia, unspecified
CPT/HCPCS: 99213; G0463

== ENCOUNTER 2021-03-11 03:32 | Emergency (ER) | payer OTHER, SELFPAY ==
--- NOTE | ~2021-03-11 | XR_ITS ---
XR chest 1V portable DATE: 03/11/2021 04:02 INDICATION: Left chest pain for 9 hours TECHNIQUE: Portable upright AP chest on 03/21/2021 at 0353 hours COMPARISON: 11/29/2020 PA and lateral chest FINDINGS: Resection of the lateral aspect of the right clavicle. Normal heart size. No hilar or mediastinal enlargement. Minimal discoid or scarring in the lateral left lower lung. No pulmonary infiltrate or consolidation, pleural effusion or pulmonary vascular congestion or pneumothorax. IMPRESSION: Minimal discoid scarring in the lateral left lower lung; no active cardiopulmonary diseas e Reviewed, dictated and finalized at location A. IMPRESSION: Minimal discoid scarring in the lateral left lower lung; no active cardiopulmonary disease
[2021-03-11 03:37] VITALS: BP 119/89; PULSE 78; RESP 12; O2SAT 99
--- NOTE | 2021-03-11 03:41 | ECG_ITS ---
Measurements Intervals [place] Rate: 65 P: 66 [place]: 142 QRS: -14 QRSD: 84 T: -16 QT: 359 QTc: 375 Interpretive Statements SINUS RHYTHM WITH SINUS ARRHYTHMIA POSSIBLE LEFT ATRIAL ENLARGEMENT INCOMPLETE RIGHT BUNDLE BRANCH BLOCK BORDERLINE ST-T WAVE ABNORMALITY- INFERIOR LEADS BORDERLINE ECG Electronically Signed On 03-11-2021 7:15:10 CDT by Cyril Leroy D.O.
--- NOTE | 2021-03-11 04:00 | ED.GENADULT ---
HPI - General Adult General Chief complaint: Chest Pain Stated complaint: CP, neck pain, anxiety Time Seen by Provider: 03/11/21 03:36 History of Present Illness HPI narrative: Patient 50-year-old gentleman who presents the emergency department with chief complaint of chest wall pain. The patient reports that he is having neck pain issues started having pain in the left side of his neck radiating down his left arm. The patient states that tonight the pain went down into his left side of his chest the patient states is right on the sternal border and reports that it hurts whenever he palpates his chest. Patient states that he does have history of high cholesterol no prior history of cardiac disease but reports that he was concerned that it could be his heart given that he is 50 years old. Patient reports symptoms or not improved by anything and reports are worsened whenever he palpates his chest. Related Data Home Medications Medication Instructions Recorded Confirmed sertraline 100 mg PO DAILY 10/28/20 10/28/20 Allergies Allergy/AdvReac Type Severity Reaction Status Date / Time ciprofloxacin Allergy Intermediate Swelling Verified 03/11/21 04:15 Review of Systems Review of Systems: A 10 system review of systems was completed on the patient and is negative except for what is stated in the HPI. Nursing and ancillary documentation was reviewed. [facility] Past Medical History Medical History (Updated 03/11/21 @ 05:10 by Bhupinder Reyes MD) Anxiety Back pain GERD (gastroesophageal reflux disease) Hyperlipemia Shoulder fracture, right Sinus problem Surgical History Surgical History History of back surgery History of shoulder surgery right shoulder Fx repair Family History Family History Sibling Hypertension Social History Social History Smoking packs per day: 0.5 Smoking cigarettes per day: 10.0 Smoking status: Smoker, status unknown Second hand tobacco smoke exposure: No Alcohol intake: current Substance use: current Substance use type: marijuana Gender identity (if verbalized by the patient): Male Exam Narrative: GENERAL: Well-appearing, well-nourished, and in no acute distress. HEAD: Normocephalic, atraumatic. EYES: PERRLA and EOMI. ENT: Nares clear, no rhinorrhea or epistaxis. Mucous membranes moist. NECK: Supple. Tenderness to palpation in the paraspinous muscles of the left side of the neck CHEST: Clear to auscultation. No respiratory distress. Tenderness to palpation of the left sternal border HEART: Regular rate and rhythm. No murmur heard. Normal peripheral pulses. ABDOMEN: Soft, nontender, nondistended, normal active bowel sounds. EXTREMITIES: Normal range of motion. No edema. SKIN: Warm, dry, no rash. NEURO: No focal deficits. Alert and oriented x3. PSYCH: Normal mood and affect. Course Course Emergency Course: EKG sinus rhythm rate of [address] elevation or ST depression Vital Signs Vital signs: Vital Signs Pulse Rate 78 03/11/21 03:37 Respiratory Rate 12 03/11/21 03:37 Blood Pressure 119/89 03/11/21 03:37 Pulse Oximetry 99 03/11/21 03:37 Pulse Rate 74 03/11/21 04:36 Respiratory Rate 12 03/11/21 04:36 Blood Pressure 112/87 03/11/21 04:36 Pulse Oximetry 98 03/11/21 04:36 Medical Decision Making Vital Signs Vital Signs: Vital Signs Pulse Rate 78 03/11/21 03:37 Respiratory Rate 12 03/11/21 03:37 Blood Pressure 119/89 03/11/21 03:37 Pulse Oximetry 99 03/11/21 03:37 Pulse Rate 74 03/11/21 04:36 Respiratory Rate 12 03/11/21 04:36 Blood Pressure 112/87 03/11/21 04:36 Pulse Oximetry 98 03/11/21 04:36 Lab Data Result diagrams: 03/11/21 04:06 03/11/21 04:06 Labs: Lab
[2021-03-11] MEDS: ASPIRIN 81 MG CHEWABLE TABLET 324 MG PO (04:03)
[2021-03-11 04:17] VITALS: O2SAT 98
[2021-03-11 04:17] LABS: Basophils Absolute Auto 0.1 K/mm3 (0.0-0.1); Basophils Percent Auto 1.2 % (0.2-1.2); Eosinophils Absolute Auto 0.3 K/mm3 (0-0.3); Eosinophils Percent Auto 3.9 % (0-4.4); Hematocrit 48.9 % (42.0-52.0); Hemoglobin 16.2 g/dL (14.0-18.0); Immature Granulocyte Absolute 0.02 K/mm3 (0.00-0.031); Immature Granulocyte Percent A 0.2 % (0-0.5); Lymphocytes Absolute Auto 3.44 K/mm3 (0.9-3.2); Lymphocytes Percent Auto 41.8 % (18.3-44.2); Mean Corpuscular HGB Conc 33.1 g/dl (32-36); Mean Corpuscular Volume 87.5 fl (80-100); Mean Platelet Volume 9.9 fl (7.4-10.4); Monocytes Absolute Auto 0.7 K/mm3 (0.1-0.6); Neutrophils Absolute Auto 3.7 K/mm3 (1.3-6.7); Neutrophils Percent Auto 44.9 % (45.5-73.1); Platelet Count Result 207 k/mm3 (150-375); Red Blood Count 5.59 M/mm3 (4.6-6.20); Red Cell Distribution Width 14.5 % (11.5-14.5); White Blood Count 8.2 K/mm3 (4.5-10.0)
[2021-03-11 04:26] LABS: Alanine Aminotransferase 30 U/L (4-50); Albumin Level 4.3 g/dL (3.5-5.1); Alkaline Phosphatase 72 U/L (38-126); Anion Gap 6 mmol/L (8-16); Aspartate Amino Transferase 32 U/L (17-59); Bilirubin,Total 0.3 mg/dL (0.2-1.3); Blood Urea Nitrogen 16 mg/dL (9-20); Carbon Dioxide 26 mmol/L (22-30); Chloride 107 mmol/L (98-107); Estimated CRCL calculation 64 ml/min; Estimated Glomerular Filt Rate > 60; Glucose 106 mg/dL (65-110); Lipase 129 U/L (23-300); Potassium 3.9 mmol/L (3.4-5.0); Sodium 139 mmol/L (137-145)
[2021-03-11 04:32] LABS: INR 0.8; Prothrombin Time 11.5 Seconds (11.1-14.7)
[2021-03-11 04:33] LABS: Partial Thromboplastin Time 27.6 SECONDS (22.3-36.8)
[2021-03-11 04:36] VITALS: BP 112/87; PULSE 74; RESP 12; O2SAT 98
[2021-03-11 04:38] LABS: NT Pro B Type Natriuretic Pept 12 pg/mL (5-100); Troponin I < 0.012 ng/mL (0.000-0.034)
[2021-03-11 05:17] VITALS: BP 118/85; PULSE 67; RESP 17; O2SAT 98
== END 2021-03-11 05:17 | disposition home or self-care (01) ==
PROVIDERS: Emergency Provider Emergency Medicine; PCP Family Medicine
DX: R07.89 Other chest pain (principal); E78.5 Hyperlipidemia, unspecified
CPT/HCPCS: 36415; 71045; 80053; 83690; 83880; 84484; 85025; 85610; 85730; 93005; 99284; A9270

== ENCOUNTER 2021-03-25 10:32 | Emergency (ER) | payer OTHER, SELFPAY ==
[2021-03-25 10:41] VITALS: BP 117/79; PULSE 72; RESP 16; TEMP 36.7; O2SAT 99
--- NOTE | 2021-03-25 11:02 | ED.EAR ---
HPI - Ear Problem General Chief complaint: Ear Stated complaint: ear pain Time Seen by Provider: 03/25/21 11:12 Source: patient and RN notes reviewed Mode of arrival: ambulatory Limitations: no limitations History of Present Illness HPI Narrative: 50-year-old male presents concern for right ear pain for 2 days. He denies drainage from the ear. He reports mild sore throat, occasional headache, occasional postnasal drainage. He denies any body aches, chills, sweats, fever, cough. He denies tinnitus. He reports he has had bilateral hearing changes for a while that are not related to his new onset ear pain. He denies intervention. In a separate complaint he reports that his dark-colored foul-smelling urine. He denies dysuria, frequency, urgency, nausea or back pain. MD Complaint: ear pain Related Data Home Medications Medication Instructions Recorded Confirmed sertraline 100 mg PO DAILY 10/28/20 03/25/21 Allergies Allergy/AdvReac Type Severity Reaction Status Date / Time ciprofloxacin Allergy Intermediate Swelling Verified 03/25/21 11:06 Review of Systems Review of Systems: CONSTITUTIONAL: Denies malaise, chills, sweats, or fever. ENT: Reports rhinorrhea, congestion, sinus pain. Reports mild occasional sore throat, reports right ear pain without drainage, postnasal drainage. CARDIOVASCULAR: Denies chest pain, palpitations, or edema. RESPIRATORY: Denies cough or dyspnea. GASTROINTESTINAL: Denies abdominal pain, nausea, vomiting, diarrhea : Reports foul-smelling urine, dark-colored urine. Denies dysuria, frequency, urgency SKIN: Denies rash or itching. MUSCULOSKELETAL: Denies myalgia. NEUROLOGIC: Denies headache. All systems reviewed & are unremarkable except as noted in HPI and below PMFSH Past Medical History Medical History (Updated 03/25/21 @ 11:13 by Pepper Sanders NP) Anxiety Back pain GERD (gastroesophageal reflux disease) Hyperlipemia Shoulder fracture, right Sinus problem Surgical History Surgical History History of back surgery History of shoulder surgery right shoulder Fx repair Family History Family History Sibling Hypertension Social History Social History Smoking packs per day: 0.5 Smoking cigarettes per day: 10.0 Smoking status: Smoker, status unknown Second hand tobacco smoke exposure: No Alcohol intake: current Substance use: current Substance use type: marijuana Gender identity (if verbalized by the patient): Male Comments At time of signature, agree with nursing past medical, surgical, social and family history. There is no relevant family history pertinent to the presenting complaint Exam Narrative: GENERAL: Well-appearing, well-nourished, and in no acute distress. HEAD: Normocephalic EYES: PERRLA, conjunctivae clear ENT: Nares clear, turbinates edematous and erythematous, clear discharge. Mucous membranes moist. TM pearly alanis with dull light reflex bilaterally; no tragal tenderness. Oropharynx erythematous without lesions. Tonsils enlarged and without exudate, no drooling, no hoarseness, no trismus, uvula midline. NECK: Supple. No lymphadenopathy CHEST: Clear to auscultation, breath sounds equal. No wheezing, rhonchi, rales, or stridor. No respiratory distress, speaks in full sentences. HEART: Regular rate and rhythm. No murmur heard. SKIN: Warm, dry, no rash. NEURO: Alert and oriented x3. PSYCH: Normal mood and affect Course Course Emergency Course: Patient is aware of diagnosis, understands and agrees to treatment plan. Anticipatory guidance given. Patient agrees to follow-up as directed and is aware of reasons to seek care at the emergency department. Portions of this record may have been created with voice recognition software Vital Signs Vital signs: Vi
== END 2021-03-25 11:25 | disposition home or self-care (01) ==
PROVIDERS: Emergency Provider Nurse Practitioner; PCP Family Medicine
DX: H60.331 Swimmer's ear, right ear (principal); K21.9 Gastro-esophageal reflux disease without esophagitis; E78.5 Hyperlipidemia, unspecified; F41.9 Anxiety disorder, unspecified
CPT/HCPCS: 81003; 99213; G0463

== ENCOUNTER 2021-05-07 10:22 | Emergency (ER) | payer OTHER, SELFPAY ==
--- NOTE | 2021-05-07 10:26 | ED.EAR ---
HPI - Ear Problem General Chief complaint: Ear Stated complaint: ear pain Time Seen by Provider: 05/07/21 10:26 Source: patient and RN notes reviewed History of Present Illness HPI Narrative: Patient is a 50-year-old male who presents the urgent care with complaints of right ear pain. Patient was seen recently and given polymyxin. Patient states that he has been using the eardrops but really does not like to . Patient has not taken anything [id number] for his symptoms. Patient denies of any pain but reports of water behind the ear . No other acute complaints. No acute distress noted. Patient aware of the plan of care. Some parts of this dictation were generated by voice recognition software and may contain typographical and/or grammatical inaccuracies. Related Data Home Medications Medication Instructions Recorded Confirmed sertraline 100 mg PO DAILY 10/28/20 03/25/21 Review of Systems Review of Systems: CONSTITUTIONAL: Denies fever, chills, or sweats. EYES: Denies visual changes, redness, or discharge. ENT: Denies rhinorrhea, sore throat. Reports of pressure behind the right ear and mild sinus congestion CARDIOVASCULAR: Denies chest pain, palpitations, or edema. RESPIRATORY: Denies cough or dyspnea. GASTROINTESTINAL: Denies abdominal pain, nausea, vomiting, or diarrhea. GENITOURINARY: Denies dysuria or hematuria. SKIN: Denies rash or itching. MUSCULOSKELETAL: Denies back pain, joint pain, or myalgia. NEUROLOGIC: Denies headache, numbness, or weakness. All other systems reviewed are negative, except as documented in HPI. [facility] Past Medical History Medical History (Updated 05/07/21 @ 10:45 by JOSHUA Keyes) Anxiety Back pain GERD (gastroesophageal reflux disease) Hyperlipemia Shoulder fracture, right Sinus problem Surgical History Surgical History History of back surgery History of shoulder surgery right shoulder Fx repair Family History Family History Sibling Hypertension Social History Social History Smoking packs per day: 0.5 Smoking cigarettes per day: 10.0 Smoking status: Smoker, status unknown Second hand tobacco smoke exposure: No Alcohol intake: current Substance use: current Substance use type: marijuana Gender identity (if verbalized by the patient): Male Comments At the time of my signature, I reviewed and agree with the nursing past medical, surgical, social, and family history. There is no relevant family history pertinent to the patient complaint. Exam Narrative: GENERAL: This is a well-nourished, well-developed patient, in no apparent distress. HEAD: normocephalic, atraumatic. EYES: PERRL. Sclera clear/white. Vision is grossly intact. EARS: External ears normal, auditory canals clear and without drainage, mild fluid noted behind right TM without otitis. Cerumen noted to the left ear canal without impaction. TMs normal without perforation. Hearing grossly intact. NOSE: External nose normal with no obvious nasal discharge, nares without redness, clear rhinorrhea. THROAT: Mucous membranes moist, posterior pharynx clear. Mild postnasal drainage NECK: Neck supple CARDIOVASCULAR: Regular rate and rhythm without murmurs, gallops, or rubs. RESPIRATORY: Clear to auscultation. Breath sounds equal bilaterally. No wheezes, rales, or rhonchi. SKIN: warm, intact with no suspicious lesions or rash, good texture and turgor. NEURO: awake, alert, and oriented to person, place and time. There were no obvious focal neurologic abnormalities. EXTREMITIES: No clubbing, cyanosis, or edema. Course Vital Signs Vital signs: Vital Signs Temperature 98.9 F 05/07/21 10:42 Pulse Rate 77 05/07/21 10:42 Respiratory Rate 16 05/07/21 10:42 Blood Pressure 117/81 05/07/21 10
[2021-05-07 10:42] VITALS: BP 117/81; PULSE 77; RESP 16; TEMP 37.2; O2SAT 100
== END 2021-05-07 10:50 | disposition home or self-care (01) ==
PROVIDERS: Emergency Provider Nurse Practitioner Family
DX: J32.9 Chronic sinusitis, unspecified (principal); F17.210 Nicotine dependence, cigarettes, uncomplicated; K21.9 Gastro-esophageal reflux disease without esophagitis; E78.5 Hyperlipidemia, unspecified; F41.9 Anxiety disorder, unspecified
CPT/HCPCS: 99213; G0463

== ENCOUNTER 2021-05-16 19:38 | Emergency (ER) | payer OTHER, SELFPAY ==
[2021-05-16 19:49] VITALS: BP 122/83; PULSE 97; RESP 18; TEMP 36.5; O2SAT 98
[2021-05-16 20:50] VITALS: PULSE 97; RESP 18; O2SAT 98
--- NOTE | 2021-05-16 21:23 | ED.GENADULT ---
HPI - General Adult General Chief complaint: Unspecified Stated complaint: feels like there is water in my ears Time Seen by Provider: 05/16/21 21:00 History of Present Illness HPI narrative: 50-year-old male presents to the emergency department for evaluation of persistent ear pressure. Patient has been treated recently for ear infections with both eardrops and then a Medrol Dosepak. Patient states that he has had persistent issues with sinusitis. Related Data Home Medications Medication Instructions Recorded Confirmed sertraline 100 mg PO DAILY 10/28/20 05/07/21 Allergies Allergy/AdvReac Type Severity Reaction Status Date / Time No Known Allergies Allergy Verified 05/16/21 20:53 Review of Systems Review of Systems: CONSTITUTIONAL: Denies fever, chills, or sweats. EYES: Denies visual changes, redness, or discharge. ENT: Bilateral ear pressure and sinus pressure with sinus congestion CARDIOVASCULAR: Denies chest pain, palpitations, or edema. RESPIRATORY: Denies cough or dyspnea. GASTROINTESTINAL: Denies abdominal pain, nausea, vomiting, or diarrhea. GENITOURINARY: Denies dysuria or hematuria. SKIN: Denies rash or itching. MUSCULOSKELETAL: Denies back pain, joint pain, or myalgia. NEUROLOGIC: Denies headache, numbness, or weakness. PSYCHIATRIC: Denies anxiety or depression. [facility] Past Medical History Medical History (Updated 05/17/21 @ 00:00 by Background Daemon) Anxiety Back pain GERD (gastroesophageal reflux disease) Hyperlipemia Shoulder fracture, right Sinus problem Surgical History Surgical History History of back surgery History of shoulder surgery right shoulder Fx repair Family History Family History Sibling Hypertension Social History Social History Smoking packs per day: 0.5 Smoking cigarettes per day: 10.0 Smoking status: Smoker, status unknown Second hand tobacco smoke exposure: No Alcohol intake: current Substance use: current Substance use type: marijuana Gender identity (if verbalized by the patient): Male Exam Narrative: APPEARANCE: Well appearing, no pain in distress, well-nourished. Head maxillary facial tenderness EYES: PERRLA/EOMI, conjunctivae very clear. NOSE: Normal no drainage EARS: TMs clear some suspected fluid behind the TMs, no significant erythema or bulging THROAT: Pharynx clear, no exudate. NECK: Supple. No adenopathy, no masses. RESPIRATORY: Airway patent, repsirations nonlabored. Clear to auscultation bilaterally, no rales, rhonchi, wheezing. CARDIOVASCULAR: Regular rate and rhythm without murmurs rubs or gallops. ABDOMINAL: Soft, nontender, nondistended, no hepatosplenomegally MUSCULOSKELETAl: Moves all extremities. Strenght/ROM intact, No edema, No calf tenderness. NEURO: Alert. Cranial nerves II through XII intact. Good gait. Good coordination SKIN:: Warm, dry. Normal Color PSYCHIATRIC: Normal affect/mood, normal interaction with parents. Course Course Emergency Course: Patient was updated on the plan to treat his suspected sinusitis with antibiotics. Patient was also educated on symptomatic treatment for sinus congestion. Patient was encouraged with close follow-up with his primary care physician and that if these medications do not help with symptoms he may need follow-up with an ear nose and throat physician. Patient was comfortable with the plan for signout. All questions and concerns were addressed. Vital Signs Vital signs: Vital Signs Temperature 97.7 F 05/16/21 19:49 Pulse Rate 97 05/16/21 19:49 Respiratory Rate 18 05/16/21 19:49 Blood Pressure 122/83 05/16/21 19:49 Pulse Oximetry 98 05/16/21 19:49 Temperature 97.7 F 05/16/21 19:49 Pulse Rate 90 05/16/21 21:45 Respiratory Rate 19 05/16/21 21:45 Blood Pressu
[2021-05-16 21:45] VITALS: BP 121/81; PULSE 90; RESP 19; O2SAT 98
== END 2021-05-16 21:45 | disposition home or self-care (01) ==
PROVIDERS: Emergency Provider Emergency Medicine; PCP Family Medicine
DX: J32.9 Chronic sinusitis, unspecified (principal); F41.9 Anxiety disorder, unspecified; K21.9 Gastro-esophageal reflux disease without esophagitis; E78.5 Hyperlipidemia, unspecified; F17.210 Nicotine dependence, cigarettes, uncomplicated
CPT/HCPCS: 99283

== ENCOUNTER 2021-05-30 22:53 | Emergency (ER) | payer OTHER, SELFPAY ==
[2021-05-30 23:24] VITALS: BP 132/96; PULSE 81; RESP 18; TEMP 36.9; O2SAT 97
--- NOTE | 2021-05-31 00:47 | ED.GENADULT ---
HPI - General Adult General Chief complaint: Urogenital-Male Stated complaint: STD check Time Seen by Provider: 05/31/21 00:33 Source: patient Mode of arrival: ambulatory Limitations: no limitations History of Present Illness HPI narrative: Pt presents requesting STD evaluation. He states his female sex partner contacted him a few days ago and informed him that she tested positive for chlamydia and trichomonas. He attempted to be evaluated here a few days ago but states it was busy so he left before being evaluated by a provider. He states that they do not use condoms. He has some mild dysuria but denies hematuria, urinary frequency/hesitancy/urgency, nausea, vomiting, abdominal pain, testicular pain, scrotal swelling, fever, chills and urethral discharge. No additional complaints or concerns. Related Data Home Medications Medication Instructions Recorded Confirmed sertraline 100 mg PO DAILY 10/28/20 05/07/21 Allergies Allergy/AdvReac Type Severity Reaction Status Date / Time No Known Allergies Allergy Verified 05/16/21 20:53 Review of Systems Review of Systems: CONSTITUTIONAL: Denies fever, chills, or sweats. EYES: Denies visual changes, redness, or discharge. ENT: Denies rhinorrhea, congestion, sore throat, or otalgia. CARDIOVASCULAR: Denies chest pain, palpitations, or edema. RESPIRATORY: Denies cough or dyspnea. GASTROINTESTINAL: Denies abdominal pain, nausea, vomiting, or diarrhea. GENITOURINARY: Reports mild dysuria. Denies hematuria, frequency, urgency, hesitancy. Denies urethral discharge. Denies testicular pain. Denies scrotal swelling. SKIN: Denies rash or itching. MUSCULOSKELETAL: Denies back pain, joint pain, or myalgia. NEUROLOGIC: Denies headache, numbness, dizziness, or weakness. PSYCHIATRIC: Denies anxiety or depression. [facility] Past Medical History Medical History (Updated 05/31/21 @ 00:54 by JOSHUA Qureshi, GAL) Anxiety Back pain GERD (gastroesophageal reflux disease) Hyperlipemia Shoulder fracture, right Sinus problem Surgical History Surgical History History of back surgery History of shoulder surgery right shoulder Fx repair Family History Family History Sibling Hypertension Mother Cancer Social History Social History Smoking packs per day: 0.5 Smoking cigarettes per day: 10.0 Smoking status: Smoker, status unknown Second hand tobacco smoke exposure: No Alcohol intake: current Substance use: current Substance use type: marijuana Gender identity (if verbalized by the patient): Male Exam Narrative: GENERAL: Well-appearing, well-nourished, and in no acute distress. HEAD: Normocephalic, atraumatic. EYES: PERRLA and EOMI. ENT: Nares clear, no rhinorrhea or epistaxis. Mucous membranes moist. Oropharynx without tonsillar hypertrophy exudate or other lesions. Bilateral TMs pearly alanis nonbulging NECK: Supple. No adenopathy or masses. No carotid bruits or JVD CHEST: Clear to auscultation. No respiratory distress. No wheezes rales or rhonchi HEART: Regular rate and rhythm. No murmur heard. Normal peripheral pulses. ABDOMEN: Soft, nontender, nondistended, normal active bowel sounds. GENITAL: No external genital lesions. No inguinal lymphadenopathy. No scrotal swelling. No testicular masses or tenderness. No urethral discharge EXTREMITIES: Normal range of motion. No edema. SKIN: Warm, dry, no rash. NEURO: No focal deficits. Alert and oriented x3. PSYCH: Normal mood and affect. Course Course Emergency Course: This is a 50-year-old male who presented with complaints of mild dysuria after his female sex partner informed him she has been positive for chlamydia and trichomonas. Physical exam was unremarkable. He was treated for G/C and trich. He was advise
[2021-05-31] MEDS: cefTRIAXone 1 GM VIAL 0.5 GM IM (01:06)
[2021-05-31] MEDS: AZITHROMYCIN 250 MG TABLET 1000 MG PO (01:07)
[2021-05-31] MEDS: metroNIDAZOLE 250 MG TABLET 2000 MG PO (01:07)
[2021-05-31] MEDS: WATER, STERILE FOR INJECTION 10 ML VIAL XX (01:08)
[2021-05-31 01:09] LABS: Add Urine Microscopic? YES; Appearance Urine Clear (Clear); Bilirubin Urine Negative (Negative); Blood Urine 1+ (Negative); Color Urine Yellow (Yellow); Glucose Urine UA Negative (Negative); Ketones Urine Negative (Negative); Leukocyte Esterase Ur Negative LEU/UL (Negative); Mucus Urine Rare /lpf; Nitrate Urine Negative (Negative); Protein Urine Negative (Negative); Specific Grav Ur 1.016 (1.001-1.035); Squamous Epithelial Cell Urine Rare /hpf (Few); Urobilinogen Urine Negative mg/dL (<2.0); WBC Urine 0-3 /hpf
[2021-05-31 01:16] VITALS: BP 130/91; PULSE 80; RESP 18; O2SAT 99
== END 2021-05-31 01:16 | disposition home or self-care (01) ==
PROVIDERS: Emergency Provider Nurse Practitioner; PCP Family Medicine
DX: R30.0 Dysuria (principal); Z20.2 Contact with and (suspected) exposure to infections with a predominantly sexual mode of transmission; F41.9 Anxiety disorder, unspecified; K21.9 Gastro-esophageal reflux disease without esophagitis; E78.5 Hyperlipidemia, unspecified; F17.210 Nicotine dependence, cigarettes, uncomplicated
CPT/HCPCS: 81001; 87491; 87591; 96372; 99283; A9270; J0696

== ENCOUNTER 2021-06-25 15:43 | Emergency (ER) | payer OTHER, SELFPAY ==
[2021-06-25 15:50] VITALS: BP 110/79; PULSE 99; RESP 20; TEMP 36.6; O2SAT 96
--- NOTE | 2021-06-25 15:53 | ED.BACK ---
HPI - Back Pain/Injury General Chief Complaint: Abdominal Pain Stated Complaint: Left Side Pain Time Seen by Provider: 06/25/21 15:53 Source: patient and RN notes reviewed Mode of arrival: ambulatory Limitations: no limitations History of Present Illness HPI Narrative: 50-year-old male [facility] with complaints of left lower back pain. Patient states he feels like there is something inside his abdomen. Attempted to go to the ER but states there was at least an 8-hour wait. Requesting a pain shot. States he also fell down some stairs, states he slipped or his legs gave out landed on his buttock and went the rest the way down the stairs. States it happened a couple of days ago. Patient denies any loss or retention of bowel or bladder. No midline tenderness. Walks with a normal gait. No saddle anesthesia MD elicited complaint: back pain Related Data Home Medications Medication Instructions Recorded Confirmed sertraline 100 mg PO DAILY 10/28/20 06/25/21 hydroxyzine HCl 25 mg PO DAILY 06/25/21 06/25/21 Allergies Allergy/AdvReac Type Severity Reaction Status Date / Time No Known Allergies Allergy Verified 06/25/21 15:49 Review of Systems Review of Systems: All systems reviewed & are unremarkable except as noted in HPI and below Constitutional: Constitutional: Reports no additional constitutional complaints and Denies weakness Eyes: Eyes: Reports no additional eye complaints ENT: Reports system reviewed and no additional complaints, except as documented Cardiovascular: Cardiovascular: Reports no additional cardiovascular complaints and Denies chest pain Respiratory: Respiratory: Reports no additional respiratory complaints Gastrointestinal: Gastrointestinal: Reports no additional gastrointestinal complaints, Denies abdominal pain, Denies nausea and Denies vomiting Musculoskeletal: Musculoskeletal: Reports as per HPI, Reports back pain (Left flank x couple of weeks) and Denies numbness Integumentary/Breasts: Skin/Breast: Reports system reviewed and no additional complaints, except as docu, Denies erythema, Denies unusual bruising and Denies wounds Neurologic: Reports system reviewed and no additional complaints, except as documented, Denies focal weakness, Denies numbness and Denies weakness Psychiatric: Psychiatric: Reports no additional psychiatric complaints Allergic/Immunologic: Allergic/Immunologic: Reports no additional allergic/immunologic complaints PMFSH Past Medical History Medical History (Updated 06/25/21 @ 19:48 by Pepper Hoffman) Anxiety Back pain GERD (gastroesophageal reflux disease) Hyperlipemia Shoulder fracture, right Sinus problem Surgical History Surgical History History of back surgery History of shoulder surgery right shoulder Fx repair Family History Family History Sibling Hypertension Mother Cancer Social History Social History Smoking packs per day: 0.5 Smoking cigarettes per day: 10.0 Smoking status: Smoker, status unknown Second hand tobacco smoke exposure: No Alcohol intake: current Substance use: current Substance use type: marijuana Gender identity (if verbalized by the patient): Male Comments At the time of my signature, I reviewed and agree with the nursing past medical, surgical, social, and family history. There is no relevant family history pertinent to the patient complaint. Exam Const: General: healthy appearing, no acute distress and alert; No ill appearing Nutritional Appearance: well nourished Orientation/consciousness: patient oriented x3 Limitations: no limitations HENMT: Head: normal to inspection Eyes: Pupils: Equal, round and reactive pupils present Neck: Neck: normal visual inspection, no lymphadenopathy and no meningeal signs Chest:
== END 2021-06-25 16:05 | disposition home or self-care (01) ==
PROVIDERS: Emergency Provider Nurse Practitioner; PCP Family Medicine
DX: S39.012A Strain of muscle, fascia and tendon of lower back, initial encounter (principal); W10.9XXA Fall (on) (from) unspecified stairs and steps, initial encounter; K21.9 Gastro-esophageal reflux disease without esophagitis; E78.5 Hyperlipidemia, unspecified; F41.9 Anxiety disorder, unspecified
CPT/HCPCS: 99213; G0463

== ENCOUNTER 2021-06-29 20:23 | Emergency (ER) | payer OTHER, SELFPAY ==
[2021-06-29 20:34] VITALS: BP 122/74; PULSE 89; RESP 18; TEMP 36.9; O2SAT 98
--- NOTE | 2021-06-29 20:46 | PC.NURSE ---
Pt exits EX prior to seeing provider. Ambulatory out of ED with steady gait. No sign of distress. States he will follow up with his primary in the AM.
== END 2021-06-29 20:47 | disposition left against medical advice (07) ==
LOC: ANHED 20:51
PROVIDERS: PCP Family Medicine
DX: R10.9 Unspecified abdominal pain (principal)
CPT/HCPCS: 99199

== ENCOUNTER 2021-07-04 18:35 | Emergency (ER) | payer OTHER, SELFPAY ==
--- NOTE | ~2021-07-04 | CT_ITS ---
EXAMINATION: CT abdomen pelvis wo con EXAM DATE: 07/04/2021 23:06 INDICATION: Left lower quadrant pain after falling downstairs one week ago. TECHNIQUE: Spiral CT of the abdomen and pelvis was performed without contrast. Axial, coronal and s agittal images of the abdomen and pelvis were reviewed. The dose-length product (DLP) for this exami nation was 661.78 mGy-cm. The exposure was tailored according to patient size (auto mA exposure cont rol), and iterative reconstruction (ASIR) was used as additional dose reduction technique. Comparison is made to prior examination from 01/25/2020. FINDINGS: The liver, spleen, adrenal glands and pancreas are unremarkable. Gallbladder is unremarkab le. No biliary obstruction. There is no nephrolithiasis or hydronephrosis. There is mild prostatom egaly. The bladder is unremarkable. There is no retroperitoneal or pelvic lymphadenopathy. There is mild scattered arteriosclerotic disease. The appendix is normal. The stomach and small bowel are unremarkable. There is moderate amount of c olonic stool. No free intraperitoneal gas. The heart is normal in size. There are no pericardial or pleural effusions. The lung bases are unremarkable. There is L4-5 disc replacement. L5-S1 poste rior and interbody fusion. IMPRESSION: 1. No acute intra-abdominal findings. Reviewed, dictated and finalized at location G. ER HELPER
[2021-07-04 18:38] VITALS: BP 123/88; PULSE 98; RESP 18; TEMP 36.4; O2SAT 99
[2021-07-04 22:46] LABS: Basophils Absolute Auto 0.1 K/mm3 (0.0-0.1); Basophils Percent Auto 1.4 % (0.2-1.2); Eosinophils Absolute Auto 0.3 K/mm3 (0-0.3); Eosinophils Percent Auto 3.9 % (0-4.4); Hematocrit 50.6 % (42.0-52.0); Hemoglobin 16.5 g/dL (14.0-18.0); Immature Granulocyte Absolute 0.02 K/mm3 (0.00-0.031); Immature Granulocyte Percent A 0.3 % (0-0.5); Lymphocytes Absolute Auto 3.68 K/mm3 (0.9-3.2); Lymphocytes Percent Auto 47.4 % (18.3-44.2); Mean Corpuscular HGB Conc 32.6 g/dl (32-36); Mean Corpuscular Hemoglobin 28.7 pg (26-34); Mean Corpuscular Volume 88.2 fl (80-100); Mean Platelet Volume 10.1 fl (7.4-10.4); Monocytes Absolute Auto 0.6 K/mm3 (0.1-0.6); Monocytes Percent Auto 7.6 % (2.6-8.5); Neutrophils Absolute Auto 3.1 K/mm3 (1.3-6.7); Neutrophils Percent Auto 39.4 % (45.5-73.1); Platelet Count Result 203 k/mm3 (150-375); Red Blood Count 5.74 M/mm3 (4.6-6.20); Red Cell Distribution Width 14.3 % (11.5-14.5); White Blood Count 7.8 K/mm3 (4.5-10.0)
--- NOTE | 2021-07-04 22:56 | ED.ABDPAIN ---
HPI - Abdominal Pain General Chief Complaint: Abdominal Pain Stated Complaint: Abdominal pain Time Seen by Provider: 07/04/21 21:16 Source: patient Mode of arrival: ambulatory Limitations: no limitations History of Present Illness HPI narrative: 50-year-old male Here for abdominal pain Patient gives a somewhat vague history of having burning abdominal pain for a long time Pain is in his left lower quadrant and left flank sometimes, sometimes all over, sometimes in the upper abdomen in the epigastrium and right upper quadrant although to some extent it seems like it might be slightly more centered on his left lower quadrant wound which is related to his previous low back surgery Does not seem to be triggered or relieved by anything, does not seem to be associated with weight loss, nausea or vomiting, change in stool habits He recently saw primary care and an outpatient CT scan was ordered to evaluate this but the patient states that his symptoms are causing him to become very agitated so he decided to come to the ED to get the scan done before the snowstorm Only other medical problem is depression which she takes a medicine for that he cannot recall He smokes 1/2 pack a day and says he does not drink alcohol Related Data Home Medications Medication Instructions Recorded Confirmed sertraline 100 mg PO DAILY 10/28/20 06/25/21 hydroxyzine HCl 25 mg PO DAILY 06/25/21 06/25/21 Allergies Allergy/AdvReac Type Severity Reaction Status Date / Time No Known Allergies Allergy Verified 06/25/21 15:49 Review of Systems Review of Systems: All systems reviewed & are unremarkable except as noted in HPI and below Constitutional: Constitutional: Reports no additional constitutional complaints, Denies chills, Denies fever(s) and Denies headache(s) Eyes: Eyes: Reports no additional eye complaints and Denies change in vision ENT: Denies headache(s) and Denies sore throat Cardiovascular: Cardiovascular: Denies chest pain and Denies dyspnea Respiratory: Respiratory: Denies cough and Denies dyspnea Gastrointestinal: Gastrointestinal: Reports as per HPI Genitourinary: Genitourinary: Denies dysuria and Denies urinary frequency Musculoskeletal: Musculoskeletal: Reports back pain, Denies deformity, Denies arthralgias, Denies joint swelling and Denies numbness Integumentary/Breasts: Skin/Breast: Denies rash and Denies wounds Neurologic: Denies headache(s), Denies focal weakness and Denies numbness Psychiatric: Psychiatric: Reports as per HPI Endocrine: Endocrine: Reports no additional endocrine complaints Hematologic/Lymphatic: Hematologic/Lymphatic: Reports no additional hematologic/lymphatic complaints Allergic/Immunologic: Allergic/Immunologic: Reports no additional allergic/immunologic complaints [facility], [facility] Past Medical History Medical History (Updated 07/04/21 @ 23:41 by Harpal Carrillo MD) Anxiety Back pain GERD (gastroesophageal reflux disease) Hyperlipemia Shoulder fracture, right Sinus problem Surgical History Surgical History History of back surgery History of shoulder surgery right shoulder Fx repair Family History Family History Sibling Hypertension Mother Cancer Social History Social History Smoking packs per day: 0.5 Smoking cigarettes per day: 10.0 Smoking status: Smoker, status unknown Second hand tobacco smoke exposure: No Alcohol intake: current Substance use: current Substance use type: marijuana Gender identity (if verbalized by the patient): Male Exam Const: General: cooperative, no acute distress and alert Orientation/consciousness: patient oriented x3 (alert) HENMT: Head: normal to inspection, normocephalic and atraumatic Ears: external ears normal General nose exam: no epistaxis E
[2021-07-04 22:57] LABS: Lipase 116 U/L (23-300)
[2021-07-04 22:58] LABS: Alanine Aminotransferase 23 U/L (4-50); Albumin Level 4.5 g/dL (3.5-5.1); Alkaline Phosphatase 71 U/L (38-126); Anion Gap 6 mmol/L (8-16); Aspartate Amino Transferase 34 U/L (17-59); Bilirubin,Total 0.5 mg/dL (0.2-1.3); Blood Urea Nitrogen 13 mg/dL (9-20); Carbon Dioxide 23 mmol/L (22-30); Chloride 106 mmol/L (98-107); Estimated CRCL calculation 69 ml/min; Estimated Glomerular Filt Rate > 60; Glucose 93 mg/dL (65-110); Sodium 135 mmol/L (137-145)
[2021-07-04] MEDS: PANTOPRAZOLE SODIUM IV 40 MG VIAL IV PUSH (22:58)
[2021-07-04] MEDS: LACTATED RINGERS 1,000 ML 999 ML IV CONT (22:59)
[2021-07-04] MEDS: DICYCLOMINE HCL INJ 20 MG/2 ML VIAL IM (22:59)
== END 2021-07-05 00:08 | disposition home or self-care (01) ==
PROVIDERS: Emergency Provider Emergency Medicine; PCP Family Medicine
DX: R10.9 Unspecified abdominal pain (principal); F41.9 Anxiety disorder, unspecified; K21.9 Gastro-esophageal reflux disease without esophagitis
CPT/HCPCS: 36415; 74176; 80053; 83690; 85025; 96361; 96372; 96374; 99284; C9113; J0500; J7120

== ENCOUNTER 2022-01-01 16:05 | Emergency (ER) | payer OTHER, SELFPAY ==
[2022-01-01 16:12] VITALS: BP 119/81; PULSE 97; RESP 16; TEMP 36.5; O2SAT 99
--- NOTE | 2022-01-01 16:40 | ED.URI ---
HPI - URI/Sore Throat General Chief Complaint: Upper Respiratory Infection Stated Complaint: Headache,Sinus Time Seen by Provider: 01/01/22 16:41 Source: patient Mode of arrival: ambulatory Limitations: no limitations History of Present Illness HPI Narrative: 51 y/o male presented for c/o headache and muscle pain to the low back. Not taking anything for pain, states he doesn't like to take meds. Denies vision changes, photophobia, dizziness, sinus congestion, drainage, cough, sob, fever or chills. Denies injury. Denies sick contacts. Related Data Allergies Allergy/AdvReac Type Severity Reaction Status Date / Time No Known Allergies Allergy Verified 01/01/22 16:53 Review of Systems Review of Systems: CONSTITUTIONAL: Denies body aches, fever, chills, or sweats. EYES: Denies visual changes, redness, or discharge. ENT: Denies rhinorrhea, congestion, sore throat, or otalgia. CARDIOVASCULAR: Denies chest pain, palpitations, or edema. RESPIRATORY: Denies cough or dyspnea. GASTROINTESTINAL: Denies abdominal pain, nausea, vomiting, or diarrhea. SKIN: Denies rash or wounds. MUSCULOSKELETAL: reports back pain myalgia. NEUROLOGIC: Denies headache, numbness, tingling, or weakness. All systems reviewed & are unremarkable except as noted in HPI and below PMFSH Past Medical History Medical History Anxiety Back pain GERD (gastroesophageal reflux disease) Hyperlipemia Shoulder fracture, right Sinus problem Surgical History Surgical History History of back surgery History of shoulder surgery right shoulder Fx repair Family History Family History Sibling Hypertension Mother Cancer Social History Social History Smoking packs per day: 0.5 Smoking cigarettes per day: 10.0 Smoking status: Smoker, status unknown Second hand tobacco smoke exposure: No Alcohol intake: current Substance use: current Substance use type: marijuana Gender identity (if verbalized by the patient): Male Comments At time of signature, I have reviewed and agree with nursing past medical, surgical, social and family history unless otherwise noted. Please see nursing chart for further information. There is no relevant family history pertinent to the presenting complaint Exam Narrative: GENERAL: Well-appearing EYES: EOMI. No redness or drainage. Conjunctivae normal. ENT: Mucous membranes pink and moist. No rhinorrhea. NECK: Normal AROM. CHEST: Clear to auscultation. HEART: Regular rate and rhythm. ABDOMEN: Soft, nontender, nondistended, normal active bowel sounds. MUSCULOSKELETAL: No bony tenderness. EXTREMITIES: Normal range of motion. No edema. SKIN: Warm, dry, no rash. Capillary refill normal. Normal skin turgor. NEURO: No focal deficits. Alert and oriented x3. Gait steady. PSYCH: Talkative Course Course Emergency Course: Patient is aware of diagnosis, understands and agrees to treatment plan. Anticipatory guidance given. Patient agrees to follow-up as directed and is aware of reasons to seek care at the emergency department. Portions of this record may have been created with voice recognition software Level of Care: Express Care Visit Vital Signs Vital signs: Vital Signs Temperature 97.7 F 01/01/22 16:12 Pulse Rate 97 01/01/22 16:12 Respiratory Rate 16 01/01/22 16:12 Blood Pressure 119/81 01/01/22 16:12 Pulse Oximetry 99 01/01/22 16:12 Oxygen Delivery Room Air 01/01/22 16:12 Temperature 97.7 F 01/01/22 16:12 Pulse Rate 97 01/01/22 16:12 Respiratory Rate 16 01/01/22 16:12 Blood Pressure 119/81 01/01/22 16:12 Pulse Oximetry 99 01/01/22 16:12 Oxygen Delivery Room Air 01/01/22 16:12 MDM - URI/Sore Throat MDM Na
[2022-01-01] MEDS: KETOROLAC (*BKC) 60 MG/2 ML VIAL IM (16:59)
== END 2022-01-01 17:10 | disposition home or self-care (01) ==
PROVIDERS: Emergency Provider Nurse Practitioner Family; PCP Family Medicine
DX: M54.50 Low back pain, unspecified (principal); R51.9 Headache, unspecified; K21.9 Gastro-esophageal reflux disease without esophagitis; E78.5 Hyperlipidemia, unspecified
CPT/HCPCS: 96372; 99213; G0463; J1885

== ENCOUNTER 2022-05-27 11:33 | Emergency (ER) | payer OTHER, MEDICAID, SELFPAY ==
[2022-05-27 12:00] VITALS: BP 120/81; PULSE 83; RESP 16; TEMP 36.4; O2SAT 97
[2022-05-27 12:28] LABS: Add Urine Microscopic? YES; Appearance Urine Clear (Clear); Bilirubin Urine Negative (Negative); Blood Urine Trace-Intact (Negative); Color Urine Light Yellow (Yellow); Glucose Urine UA Negative (Negative); Ketones Urine Negative (Negative); Leukocyte Esterase Ur Negative LEU/UL (Negative); Nitrate Urine Negative (Negative); Protein Urine Negative (Negative); Specific Grav Ur 1.025 (1.001-1.035); Urobilinogen Urine 0.2 mg/dL (<2.0); pH Urine 5.5 (5.0-9.0)
[2022-05-27 12:36] LABS: Mucus Urine Rare /lpf; RBC Urine 0-2 /hpf (0-2); WBC Urine 0-3 /hpf
--- NOTE | 2022-05-27 12:44 | ED.GENADULT ---
HPI - General Adult General Chief complaint: Urogenital-Male Stated complaint: dysuria Time Seen by Provider: 05/27/22 12:09 Source: patient Mode of arrival: ambulatory Limitations: no limitations History of Present Illness HPI narrative: Patient is a 51 y/o male who presents to the ED with c/o dysuria. Patient reports having mild dysuria in the mornings for the past few weeks which has become worse over the last week. He assumed he was dehydrated and has tried to drink more water. He became concerned for sexually transmitted infections and decided to come to the ED. He denies known exposure to STDs, but is currently sexually active. He denies any abdominal pain, nausea, vomiting, fevers, testicular pain or swelling, penile discharge, genital lesions. Related Data Allergies Allergy/AdvReac Type Severity Reaction Status Date / Time No Known Allergies Allergy Verified 01/01/22 16:53 Review of Systems Review of Systems: CONSTITUTIONAL: Denies fever, chills, or sweats. CARDIOVASCULAR: Denies chest pain. RESPIRATORY: Denies dyspnea. GASTROINTESTINAL: Denies abdominal pain, nausea, vomiting. GENITOURINARY: Reports dysuria. Denies testicular pain/swelling, urinary frequency, genital lesions, penile discharge, or hematuria. SKIN: Denies rash or itching. MUSCULOSKELETAL: Denies back pain, joint pain, or myalgia. NEUROLOGIC: Denies headache, numbness, or weakness. All systems reviewed & are unremarkable except as noted in HPI and below PMFSH Past Medical History Medical History (Updated 05/27/22 @ 13:46 by Dottie Roa PA-C) Anxiety Back pain GERD (gastroesophageal reflux disease) Hyperlipemia Shoulder fracture, right Sinus problem Surgical History Surgical History History of back surgery History of shoulder surgery right shoulder Fx repair Family History Family History Sibling Hypertension Mother Cancer Social History Social History Smoking packs per day: 0.5 Smoking cigarettes per day: 10.0 Smoking status: Smoker, status unknown Second hand tobacco smoke exposure: No Alcohol intake: current Substance use: current Substance use type: marijuana Gender identity (if verbalized by the patient): Male Exam Narrative: GENERAL: Well appearing, well-nourished, non-toxic, in no acute distress. HEAD: Normocephalic, atraumatic. NECK: Supple. No adenopathy, no masses. RESPIRATORY: Airway patent, respirations nonlabored. CARDIOVASCULAR: Regular rate and rhythm without murmurs, rubs, or gallops. Radial pulses 2+ and equal bilaterally. ABDOMINAL: Soft, no significant tenderness throughout abdomen, nondistended, no hepatosplenomegaly. Normoactive BS. MUSCULOSKELETAL: Moves all extremities. Strength/ROM intact without gross deformities. SKIN: Warm, dry, normal color. No rashes. NEURO: A&O X3. Speech clear. Cranial nerves II-XII grossly intact. Steady gait. No ataxic movements. PSYCHIATRIC: Appropriate mood and affect. Normal interaction. Course Vital Signs Vital signs: Vital Signs Temperature 97.5 F L 05/27/22 12:00 Pulse Rate 83 05/27/22 12:00 Respiratory Rate 16 05/27/22 12:00 Blood Pressure 120/81 05/27/22 12:00 Pulse Oximetry 97 05/27/22 12:00 Oxygen Delivery Room Air 05/27/22 12:00 Temperature 97.5 F L 05/27/22 12:00 Pulse Rate 83 05/27/22 12:00 Respiratory Rate 16 05/27/22 12:00 Blood Pressure 120/81 05/27/22 12:00 Pulse Oximetry 97 05/27/22 12:00 Oxygen Delivery Room Air 05/27/22 12:00 Medical Decision Making [facility] Narrative Medical decision making narrative: Patient presented to ED with 1 week history of mild morning time dysuria. Concern for STDs. Denies any definitive known exposure. Otherwise asymptomatic. UA clear here today. No sign
[2022-05-27] MEDS: cefTRIAXone 1 GM VIAL 0.5 GM IM (14:04)
[2022-05-27] MEDS: DOXYCYCLINE HYCLATE 100 MG TABLET PO (14:04)
== END 2022-05-27 14:52 | disposition home or self-care (01) ==
PROVIDERS: Emergency Provider Physician Assistant; PCP Family Medicine
DX: R30.0 Dysuria (principal); Z11.3 Encounter for screening for infections with a predominantly sexual mode of transmission; F41.9 Anxiety disorder, unspecified; K21.9 Gastro-esophageal reflux disease without esophagitis
CPT/HCPCS: 81001; 87491; 87591; 87661; 96372; 99283; A9270; J0696

== ENCOUNTER 2022-06-06 15:56 | Emergency (ER) | payer OTHER, MEDICAID, SELFPAY ==
--- NOTE | ~2022-06-06 | CT_ITS ---
EXAMINATION: CT abdomen pelvis wo con DATE: 06/06/2022 20:05 INDICATION: flank pain, hematuria as outpatient TECHNIQUE: Computed tomography (CT) of the abdomen and pelvis was performed without intravenous contr ast. Automated exposure control and iterative reconstruction technique were employed. The dose-length product was 585.40 mGy-cm. COMPARISON: 07/04/2021. FINDINGS: Lower thorax: Unremarkable Liver: Normal. Biliary/Gallbladder: Gallbladder is normal. No bile duct dilation. Pancreas: No mass or duct dilation. Spleen: Normal. Adrenals:No mass. Kidneys: No mass, stone, or hydronephrosis. GI tract: No small or large bowel dilation. Normal appendix. Mesentery/Peritoneum: No ascites, mass, or free air. Retroperitoneum: No mass. Pelvis: Pelvic organs are within normal limits. Decompressed urinary bladder. Mild bladder wall thick ening likely due to outlet compromise from prostatomegaly. Soft Tissues: Soft tissues and body wall unremarkable. Bones: No acute osseous finding. Uncomplicated appearing lumbar fusion hardware IMPRESSION: No acute abdominopelvic process detected Reviewed, dictated and finalized at location K. EDICAL ENGINEERING PROFESSOR
[2022-06-06 16:51] VITALS: BP 131/86; PULSE 85; RESP 16; TEMP 36.6; O2SAT 98
[2022-06-06 17:46] LABS: Basophils Absolute Auto 0.1 K/mm3 (0.0-0.1); Basophils Percent Auto 1.4 % (0.2-1.2); Eosinophils Absolute Auto 0.3 K/mm3 (0-0.3); Eosinophils Percent Auto 3.1 % (0-4.4); Hematocrit 52.3 % (42.0-52.0); Hemoglobin 17.2 g/dL (14.0-18.0); Immature Granulocyte Absolute 0.03 K/mm3 (0.00-0.031); Immature Granulocyte Percent A 0.4 % (0-0.5); Lymphocytes Absolute Auto 2.79 K/mm3 (0.9-3.2); Lymphocytes Percent Auto 34.7 % (18.3-44.2); Mean Corpuscular HGB Conc 32.9 g/dl (32-36); Mean Corpuscular Hemoglobin 28.7 pg (26-34); Mean Corpuscular Volume 87.2 fl (80-100); Monocytes Absolute Auto 0.6 K/mm3 (0.1-0.6); Monocytes Percent Auto 7.7 % (2.6-8.5); Neutrophils Absolute Auto 4.2 K/mm3 (1.3-6.7); Neutrophils Percent Auto 52.7 % (45.5-73.1); Platelet Count Result 208 k/mm3 (150-375); Red Cell Distribution Width 14.6 % (11.5-14.5)
[2022-06-06 17:47] LABS: Add Urine Microscopic? YES; Appearance Urine Clear (Clear); Bilirubin Urine Negative (Negative); Blood Urine Trace-Intact (Negative); Color Urine Yellow (Yellow); Glucose Urine UA Negative (Negative); Ketones Urine Negative (Negative); Leukocyte Esterase Ur Negative LEU/UL (Negative); Nitrate Urine Negative (Negative); Protein Urine Negative (Negative); Urobilinogen Urine 0.2 mg/dL (<2.0)
[2022-06-06 17:48] LABS: Alanine Aminotransferase 44 U/L (6-50); Albumin Level 4.5 g/dL (3.5-5.1); Alkaline Phosphatase 72 U/L (38-126); Anion Gap 6 mmol/L (8-16); Aspartate Amino Transferase 37 U/L (17-59); Bilirubin,Total 0.5 mg/dL (0.2-1.3); Blood Urea Nitrogen 11 mg/dL (9-20); Calcium 9.1 mg/dL (8.4-10.2); Carbon Dioxide 27 mmol/L (22-30); Chloride 102 mmol/L (98-107); Estimated CRCL calculation 75 ml/min; Estimated Glomerular Filt Rate > 60; Glucose 88 mg/dL (65-110); Potassium 4.1 mmol/L (3.4-5.0); Sodium 135 mmol/L (137-145)
[2022-06-06 17:53] LABS: RBC Urine 0-2 /hpf (0-2); WBC Urine 0-3 /hpf
--- NOTE | 2022-06-06 19:53 | ED.GENADULT ---
HPI - General Adult General Chief complaint: Recheck/Abnormal Lab/Rx Stated complaint: blood in urine, kidney infection need abx from u.c Time Seen by Provider: 06/06/22 19:44 History of Present Illness HPI narrative: 51-year-old male presenting the emergency department for evaluation of flank pain and reports of hematuria. Patient was evaluated in the emergency department on for concern of urinary tract infection. Patient had no evidence of a urinary tract infection at that time. Patient at that time reported he was concerned about an STI so patient was treated prophylactically upon request. Patient did have follow-up today with urgent care for evaluation of back pain. Patient was told he had blood in his urine and was instructed to present to the emergency department for IV antibiotics. On the urinalysis here patient has no evidence of a urinary tract infection. Patient denies any prior history of kidney stones. Related Data Allergies Allergy/AdvReac Type Severity Reaction Status Date / Time No Known Allergies Allergy Verified 06/06/22 19:56 Review of Systems Review of Systems: CONSTITUTIONAL: Denies fever, chills, or sweats. EYES: Denies visual changes, redness, or discharge. ENT: Denies rhinorrhea, congestion, sore throat, or otalgia. CARDIOVASCULAR: Denies chest pain, palpitations, or edema. RESPIRATORY: Denies cough or dyspnea. GASTROINTESTINAL: Denies abdominal pain, nausea, vomiting, or diarrhea. GENITOURINARY: See HPI SKIN: Denies rash or itching. MUSCULOSKELETAL: Denies back pain, joint pain, or myalgia. NEUROLOGIC: Denies headache, numbness, or weakness. [facility] Past Medical History Medical History (Updated 06/07/22 @ 00:00 by Dudley Akbar) Anxiety Back pain GERD (gastroesophageal reflux disease) Hyperlipemia Shoulder fracture, right Sinus problem Surgical History Surgical History History of back surgery History of shoulder surgery right shoulder Fx repair Family History Family History Sibling Hypertension Mother Cancer Social History Social History Smoking packs per day: 0.5 Smoking cigarettes per day: 10.0 Smoking status: Smoker, status unknown Second hand tobacco smoke exposure: No Alcohol intake: current Substance use: current Substance use type: marijuana Gender identity (if verbalized by the patient): Male Exam Narrative: APPEARANCE: Well appearing, no pain, no distress, well-nourished. HEAD: normocephalic, atraumatic. EYES: PERRLA/EOMI, conjunctivae clear. NOSE: Normal no drainage NECK: Supple. No adenopathy, no masses. RESPIRATORY: Airway patent, respirations nonlabored. Clear to auscultation bilaterally, no rales, rhonchi, wheezing. CARDIOVASCULAR: Regular rate and rhythm without murmurs rubs or gallops. ABDOMINAL: Soft, nontender, nondistended, normal bowel sounds MUSCULOSKELETAL: Moves all extremities. Some midline/paraspinal muscle tenderness to palpation NEURO: Alert. Cranial nerves II through XII intact. Grossly intact SKIN: Warm, dry. Normal Color Course Course Emergency Course: Patient's UA shows no evidence of urinary tract infection or hematuria here patient is afebrile with no leukocytosis. Patient has normal kidney function. Patient does have some flank tenderness to palpation and patient does have documentation from urgent care showing hematuria. While patient denies any prior history of kidney stones. This may be a cause for his flank pain and hematuria. Differential diagnosis for the patient's pain did include UTI, ureterolithiasis or other intra-abdominal pathology. With negative CT scan and negative UA musculoskeletal etiology seems more likely patient was encouraged to have close follow-up with his primary care physician. Patient
[2022-06-06 20:17] VITALS: BP 127/83; PULSE 87; RESP 16; O2SAT 97
[2022-06-06] MEDS: CYCLOBENZAPRINE HCL 10 MG TABLET PO (20:30)
== END 2022-06-06 20:38 | disposition home or self-care (01) ==
PROVIDERS: Emergency Medicine; Emergency Provider Emergency Medicine; PCP Family Medicine
DX: M54.9 Dorsalgia, unspecified (principal); K21.9 Gastro-esophageal reflux disease without esophagitis; E78.5 Hyperlipidemia, unspecified; F17.210 Nicotine dependence, cigarettes, uncomplicated
CPT/HCPCS: 36415; 74176; 80053; 81001; 85025; 99284; A9270

== ENCOUNTER 2022-09-26 15:34 | Emergency (ER) | payer OTHER, MEDICAID, SELFPAY ==
[2022-09-26 15:46] VITALS: BP 134/86; PULSE 83; RESP 12; TEMP 37.3; O2SAT 97
--- NOTE | 2022-09-26 16:09 | ED.URI ---
HPI - URI/Sore Throat General Chief Complaint: Upper Respiratory Infection Stated Complaint: Sore Throat/Ears Irritation Time Seen by Provider: 09/26/22 15:51 Source: patient and RN notes reviewed Mode of arrival: ambulatory Limitations: no limitations History of Present Illness HPI Narrative: Patient presents today complaining of sore throat and right ear pain since 3:00 a.m. this morning. Denies fever, congestion, rhinorrhea. Denies known sick contacts. Currently rates his pain 8/10 and has tried no [id number] treatment prior to arrival. Related Data Allergies Allergy/AdvReac Type Severity Reaction Status Date / Time No Known Allergies Allergy Verified 09/26/22 15:36 Review of Systems Review of Systems: CONSTITUTIONAL: Denies body aches, fever, chills, or sweats. EYES: Denies visual changes, redness, or discharge. ENT: Denies rhinorrhea, congestion. + sore throat, right ear pain CARDIOVASCULAR: Denies chest pain, palpitations, or edema. RESPIRATORY: Denies cough or dyspnea. GASTROINTESTINAL: Denies abdominal pain, nausea, vomiting, or diarrhea. GENITOURINARY: Denies dysuria or hematuria. SKIN: Denies rash, itching, or wounds. MUSCULOSKELETAL: Denies back pain, joint pain, or myalgia. NEUROLOGIC: Denies headache, numbness, tingling, or weakness. PSYCH: Denies depression or anxiety. [facility] Past Medical History Medical History (Updated 09/26/22 @ 16:15 by Roxy Allred, RESIDENT ENGINEER, ) Anxiety Back pain GERD (gastroesophageal reflux disease) Hyperlipemia Shoulder fracture, right Sinus problem Surgical History Surgical History History of back surgery History of shoulder surgery right shoulder Fx repair Family History Family History Sibling Hypertension Mother Cancer Social History Social History Smoking packs per day: 0.5 Smoking cigarettes per day: 10.0 Smoking status: Smoker, status unknown Second hand tobacco smoke exposure: No Alcohol intake: current Substance use: current Substance use type: marijuana Living arrangements: with family Gender identity (if verbalized by the patient): Male Comments At time of signature, I have reviewed and agree with nursing past medical, surgical, social and family history unless otherwise noted. Please see nursing chart for further information. There is no relevant family history pertinent to the presenting complaint Exam Narrative: GENERAL: Well-appearing, well-nourished, and in no acute distress. HEAD: Normocephalic, atraumatic. EYES: EOMI. No redness or drainage. Conjunctivae normal. ENT: Mucous membranes pink and moist. Nares clear. No rhinorrhea. Right TM with middle ear effusion. Left TM normal. Throat normal. Uvula midline. NECK: Normal AROM. Supple. No lymphadenopathy. CHEST: No respiratory distress. Clear to auscultation. HEART: Regular rate and rhythm. No murmur appreciated. Normal peripheral pulses. EXTREMITIES: Normal range of motion. No edema. SKIN: Warm, dry, no rash. Capillary refill normal. Normal skin turgor. NEURO: No focal deficits. Alert and oriented x3. Gait steady. PSYCH: Normal affect. No signs of depression or anxiety. Course Course Level of Care: Express Care Visit Vital Signs Vital signs: Vital Signs Temperature 99.2 F 09/26/22 15:46 Pulse Rate 83 09/26/22 15:46 Respiratory Rate 12 09/26/22 15:46 Blood Pressure 134/86 09/26/22 15:46 Pulse Oximetry 97 09/26/22 15:46 Oxygen Delivery Room Air 09/26/22 15:46 Temperature 99.2 F 09/26/22 15:46 Pulse Rate 83 09/26/22 15:46 Respiratory Rate 12 09/26/22 15:46 Blood Pressure 134/86 09/26/22 15:46 Pulse Oximetry 97 09/26/22 15:46 Oxygen Delivery Room Air 09/26/22 15:46 Reviewed. Pt has been ins
== END 2022-09-26 16:25 | disposition home or self-care (01) ==
PROVIDERS: Emergency Provider Nurse Practitioner; PCP Family Medicine
DX: J30.2 Other seasonal allergic rhinitis (principal); H65.01 Acute serous otitis media, right ear; K21.9 Gastro-esophageal reflux disease without esophagitis; E78.5 Hyperlipidemia, unspecified
CPT/HCPCS: 87081; 87880; 99212; G0463

== ENCOUNTER 2023-03-10 15:17 | Emergency (ER) | payer OTHER, SELFPAY ==
--- NOTE | 2023-03-10 15:18 | ED.BACK ---
HPI - Back Pain/Injury General Chief Complaint: Back Pain/Injury Stated Complaint: back pain Time Seen by Provider: 03/10/23 15:18 Source: patient Mode of arrival: ambulatory Limitations: no limitations History of Present Illness HPI Narrative: Barbara is a 52-year-old male patient presenting to the clinic today with complaints of left-sided middle back pain. He reports this has been ongoing for some time now and thinks he may have strained a muscle. He reports he has mild radiation to the left lateral side when daily heavy lifting and bending. Pain is just below the scapula Related Data Allergies Allergy/AdvReac Type Severity Reaction Status Date / Time No Known Allergies Allergy Verified 03/10/23 15:25 Review of Systems Review of Systems: Pertinent positives per HPI. Patient denies any fever, chills, rash, headache, visual changes, dizziness, cough, runny nose, sore throat, shortness of breath, chest pain, palpitations, nausea, vomiting, diarrhea, constipation, abdominal pain, or any urinary issues. [facility] Past Medical History Medical History (Updated 03/10/23 @ 15:31 by Leonard Hanna APRN) Anxiety Back pain GERD (gastroesophageal reflux disease) Hyperlipemia Shoulder fracture, right Sinus problem Surgical History Surgical History History of back surgery History of shoulder surgery right shoulder Fx repair Family History Family History Sibling Hypertension Mother Cancer Social History Social History Smoking packs per day: 0.5 Smoking cigarettes per day: 10.0 Smoking status: Smoker, status unknown Second hand tobacco smoke exposure: No Alcohol intake: current Substance use: current Substance use type: marijuana Living arrangements: with family Gender identity (if verbalized by the patient): Male Comments At the time of my signature, I reviewed and agree with the nursing past medical, surgical, social, and family history. There is no relevant family history pertinent to the patient complaint. Exam Narrative: General: Well-developed, well nourished, in no apparent distress Head: Normocephalic, atraumatic. Cardio: Regular rate and rhythm, s1 and s2 normal, no murmur appreciated. Resp: Clear to auscultation bilaterally, no rhonchi, rales, wheezing or rubs. Musculoskeletal: No deformity, tender to palpation over the lateral a musculature just below the left scapula, grossly normal range of motion, muscle strength strong and equal, peripheral pulse strong, no edema, no cyanosis, normal gait and station Course Course Emergency Course: Portions of this record may have been created with voice recognition software. Level of Care: Express Care Visit Vital Signs Vital signs: Vital signs reviewed MDM - Back Pain/Injury MDM Narrative Medical decision making narrative: At the time of visit patient is resting on the exam table. Prescription for naproxen and Flexeril was sent to the pharmacy. Supportive measures were discussed with the patient he voiced understanding discharge instructions agrees to treatment plan. Differential Diagnosis Differential diagnosis: Likely thoracic back pain and other (Muscle strain) Discharge Plan Discharge Clinical Impression: Strain of muscle and tendon of back wall of thorax, initial encounter Patient Disposition: Home, Self-Care Condition: Stable Instructions: Antibiotic Form, Acute Low Back Pain (ED) Additional Instructions: Take any prescription medication only as prescribed- naproxen and cyclobenzaprine Be mindful of sedation precautions given to you if taking a muscle relaxer. May use heat or ice to the affected area Consider massage or chiropractor adjustment if this was discussed with provider May use [facility]
[2023-03-10 15:27] VITALS: BP 105/74; PULSE 64; RESP 16; TEMP 36.2; O2SAT 99
== END 2023-03-10 15:38 | disposition home or self-care (01) ==
LOC: EXPCOLL 15:21
PROVIDERS: Emergency Provider Nurse Practitioner Family; PCP Family Medicine
DX: S29.012A Strain of muscle and tendon of back wall of thorax, initial encounter (principal); F17.210 Nicotine dependence, cigarettes, uncomplicated; X50.0XXA Overexertion from strenuous movement or load, initial encounter
CPT/HCPCS: 99213; G0463

== ENCOUNTER 2023-05-31 11:32 | Emergency (ER) | payer OTHER, MEDICAID, SELFPAY ==
[2023-05-31 11:42] VITALS: BP 131/83; PULSE 69; RESP 16; TEMP 37.2; O2SAT 99
--- NOTE | 2023-05-31 12:37 | ED.NECK ---
HPI - Neck Pain/Injury General Chief Complaint: Neck Pain/Injury Stated Complaint: neck pain,left arm pain Time Seen by Provider: 05/31/23 12:37 Source: patient Mode of arrival: ambulatory Limitations: no limitations History of Present Illness HPI Narrative: 52-year-old male presented for complaint of left neck and left upper back pain worsening over the past few days. Pain radiates down the arm at times. Pain worse with ear to shoulder movements and movements of the arms. He denies injury. 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 He denies numbness, tingling, weakness of the extremities. He is taking ibuprofen without relief. He states he wants a shot so he can go to sleep. Rates pain 15/10. Was able to remove his shirts. Related Data Allergies Allergy/AdvReac Type Severity Reaction Status Date / Time No Known Allergies Allergy Verified 05/31/23 11:44 Review of Systems Review of Systems: CONSTITUTIONAL: Denies body aches, fever, chills EYES: Denies visual changes CARDIOVASCULAR: Denies chest pain, palpitations, or edema. RESPIRATORY: Denies cough or dyspnea. GASTROINTESTINAL: Denies abdominal pain, nausea, vomiting, or diarrhea. SKIN: Denies rash, itching, or wounds. MUSCULOSKELETAL: reports back and neck pain NEUROLOGIC: Denies headache, numbness, tingling, or weakness. All systems reviewed & are unremarkable except as noted in HPI and below PMFSH Past Medical History Medical History Anxiety Back pain GERD (gastroesophageal reflux disease) Hyperlipemia Shoulder fracture, right Sinus problem Surgical History Surgical History History of back surgery History of shoulder surgery right shoulder Fx repair Family History Family History Sibling Hypertension Mother Cancer Social History Social History Smoking packs per day: 0.5 Smoking cigarettes per day: 10.0 Smoking status: Smoker, status unknown Second hand tobacco smoke exposure: No Alcohol intake: current Substance use: current Substance use type: marijuana Living arrangements: with family Gender identity (if verbalized by the patient): Male Comments At time of signature, I have reviewed and agree with nursing past medical, surgical, social and family history unless otherwise noted. Please see nursing chart for further information. There is no relevant family history pertinent to the presenting complaint Exam Narrative: GENERAL: Well-appearing NECK: Slightly limited range of motion due to reports of pain. Pain worse with left ear to shoulder movement. No vertebral point tenderness no paraspinal tenderness with palpation. CHEST: Speaks in full sentences. No respiratory distress. HEART: Regular rate and rhythm. Normal and equal peripheral pulses. MUSC: Reports tenderness to left upper back just medial to scapula. No Vertebral point tenderness. BUEs with normal strength and sensation, normal range of motion but endorses pain with movement. No open wounds, or obvious deformity; alignment normal, pulse palpable and equal bilaterally, skin warm, dry, pink. Capillary refill less than 3 seconds. Gait steady. SKIN: Warm, dry, no rash. NEURO: Alert and oriented x3. Neck: Neck images: 1. area of pain Back/Spine/Pelvis: Back/spine/pelvis image: 1. area of pain Course Course Emergency Course: Patient is aware of diagnosis, understands and agrees to treatment plan. Anticipatory guidance given. Patient agrees to follow-up as directed and is aware of reasons to seek care at the emergency department. Portions of this record may have been created with voice recognition software Level of Care: Express Care Visit Vital Signs Vital signs: Vital Signs Temperature 99
== END 2023-05-31 12:55 | disposition home or self-care (01) ==
PROVIDERS: Emergency Provider Nurse Practitioner Family; PCP Family Medicine
DX: M54.2 Cervicalgia (principal); M54.6 Pain in thoracic spine; F17.210 Nicotine dependence, cigarettes, uncomplicated; F12.90 Cannabis use, unspecified, uncomplicated; K21.9 Gastro-esophageal reflux disease without esophagitis; E78.5 Hyperlipidemia, unspecified
CPT/HCPCS: 99213; G0463

== ENCOUNTER 2023-06-18 11:01 | Emergency (ER) | payer OTHER, MEDICAID, SELFPAY ==
--- NOTE | ~2023-06-18 | XR_ITS ---
XR_[id number] DATE: 06/18/2023 13:31 INDICATION: Neck and shoulder pain TECHNIQUE: AP, lateral, swimmer's, open-mouth and odontoid views COMPARISON: None FINDINGS: There is straightening of cervical spine which may be due to muscle spasm. C1 and C2 are normally aligned and the odontoid process is intact. No fracture or dislocation or lock ed facet or prevertebral soft tissue swelling is evident. There is minimal anterior spurring at C5-6 and C6-7. Cervical interspaces appear relatively preserved . There is mild uncovertebral joint spurring in the mid and lower cervical spine. IMPRESSION: Straightening of cervical spine which may be due to muscle spasm Mild cervical spondylosis Reviewed, dictated and finalized at [facility]. Reviewed, dictated and finalized at [facility]. R PRINTER OPERATOR
[2023-06-18 11:03] VITALS: BP 120/73; PULSE 81; RESP 18; TEMP 36.6; O2SAT 100
--- NOTE | 2023-06-18 11:18 | PC.NURSE ---
Pt requesting STD check. C/O burning with urination & frequency with urination
[2023-06-18 12:39] LABS: Appearance Urine Clear (Clear); Bacteria Urine None Seen /hpf; Bilirubin Urine Negative (Negative); Blood Urine Negative (Negative); Color Urine Yellow (Yellow); Glucose Urine UA Negative (Negative); Ketones Urine Negative (Negative); Leukocyte Esterase Ur Trace LEU/UL (Negative); Nitrate Urine Negative (Negative); Non Pathogenic Casts 0-2; Protein Urine Negative (Negative); RBC Urine 0-2 /hpf (0-2); Specific Grav Ur 1.012 (1.001-1.035); Squamous Epithelial Cell Urine None seen /hpf (Few); Urobilinogen Urine 0.2 mg/dL (<2.0)
[2023-06-18 12:45] LABS: Add Urine Microscopic? YES
--- NOTE | 2023-06-18 12:58 | ED.GENADULT ---
HPI - General Adult General Chief complaint: Urogenital-Male Stated complaint: shoulder pain/burning with urination Time Seen by Provider: 06/18/23 11:57 History of Present Illness HPI narrative: 52-year-old male presenting to the emergency department for evaluation for burning with urination. Patient has no prior history of enlarged prostate and urinary retention. Patient describes some increased burning with urination and increased urinary hesitancy. Patient states he was also concerned about possible STI. Patient is also complaining of some persistent left lateral neck and left shoulder pain that is been ongoing for the past 2 months. Patient states the pain does radiate down his left arm but denies any associated numbness or weakness. Related Data Allergies Allergy/AdvReac Type Severity Reaction Status Date / Time No Known Allergies Allergy Verified 05/31/23 11:44 Review of Systems Review of Systems: All systems reviewed & are unremarkable except as noted in HPI and below PMFSH Past Medical History Medical History (Updated 06/18/23 @ 15:12 by Myron Bagley MD) Anxiety Back pain GERD (gastroesophageal reflux disease) Hyperlipemia Shoulder fracture, right Sinus problem Surgical History Surgical History History of back surgery History of shoulder surgery right shoulder Fx repair Family History Family History Sibling Hypertension Mother Cancer Social History Social History Smoking packs per day: 0.5 Smoking cigarettes per day: 10.0 Smoking status: Smoker, status unknown Second hand tobacco smoke exposure: No Alcohol intake: current Substance use: current Substance use type: marijuana Living arrangements: with family Gender identity (if verbalized by the patient): Male Exam Narrative: APPEARANCE: Well appearing, no pain, no distress, well-nourished. HEAD: normocephalic, atraumatic. EYES: PERRLA/EOMI, conjunctivae clear. NOSE: Normal no drainage EARS:TMS clear with good light reflex. THROAT: Pharynx clear, no exudate. NECK: Supple. No adenopathy, no masses. RESPIRATORY: Airway patent, respirations nonlabored. Clear to auscultation bilaterally, no rales, rhonchi, wheezing. CARDIOVASCULAR: Regular rate and rhythm without murmurs rubs or gallops. ABDOMINAL: Soft, nontender, nondistended, normal bowel sounds MUSCULOSKELETAL: Left lateral neck and trapezius tenderness NEURO: Alert. Cranial nerves II through XII intact. grossly intact SKIN: Warm, dry. Normal Color Course Course Emergency Course: 52-year-old male presenting ED for evaluation of burning with urination. Patient describes urinary hesitancy and patient was started on a brief course of Flomax. Urine was concerning for mild urinary tract infection so patient was started on Keflex. Patient did test positive for Trichomonas and was treated with a single 1 time dose of 2000 mg of Flagyl. Patient declined any muscle relaxants for his left shoulder pain x-ray showed no acute fracture dislocation. Patient was encouraged to have close follow-up with Urology and updated on the results of his workup. All questions concerns were addressed patient was well-appearing at time of discharge. Vital Signs Vital signs: Vital Signs Temperature 97.8 F 06/18/23 11:03 Pulse Rate 81 06/18/23 11:03 Respiratory Rate 18 06/18/23 11:03 Blood Pressure 120/73 06/18/23 11:03 Pulse Oximetry 100 06/18/23 11:03 Oxygen Delivery Room Air 06/18/23 11:03 Temperature 97.8 F 06/18/23 15:27 Pulse Rate 77 06/18/23 15:27 Respiratory Rate 18 06/18/23 15:27 Blood Pressure 120/78 06/18/23 15:27 Pulse Oximetry 98 06/18/23 15:27 Oxygen Delivery Room Air 06/18/23 11:03 Medical Decision Making Differential Diagn
[2023-06-18] MEDS: CEPHALEXIN 500 MG CAPSULE PO (13:19)
--- NOTE | 2023-06-18 14:02 | PC.NURSE ---
Pt anxious about how long it is taking to get his results. Assured pt that lab is working diligently to get results.
--- NOTE | 2023-06-18 14:12 | PC.NURSE ---
Pr refusing Cyclobenzaprine. States I don't like to take anything that can make me sleepy
[2023-06-18 14:18] LABS: Trichomonas Vag PCR DETECTED (NOT DETECTE)
[2023-06-18 14:48] LABS: Chlamydia trachomatis NOT DETECTED (NOT DETECTE); Neisseria gonorrhoeae PCR NOT DETECTED (NOT DETECTE)
[2023-06-18] MEDS: metroNIDAZOLE 500 MG TABLET 2000 MG PO (15:20)
[2023-06-18 15:27] VITALS: BP 120/78; PULSE 77; RESP 18; TEMP 36.6; O2SAT 98
--- NOTE | 2023-06-18 15:31 | PC.NURSE ---
Dr. Bagley discuss with pt in length test results and what they indicate. Pt voices understanding
== END 2023-06-18 15:38 | disposition home or self-care (01) ==
PROVIDERS: Emergency Provider Emergency Medicine; PCP Family Medicine
DX: A59.00 Urogenital trichomoniasis, unspecified (principal); E78.5 Hyperlipidemia, unspecified; F17.210 Nicotine dependence, cigarettes, uncomplicated
CPT/HCPCS: 72040; 81001; 87086; 87491; 87591; 87661; 99283; A9270

== ENCOUNTER 2023-08-01 16:09 | Outpatient (CLI) | payer OTHER, MEDICAID, SELFPAY ==
[2023-08-01 16:48] LABS: Basophils Absolute Auto 0.1 K/mm3 (0.0-0.1); Basophils Percent Auto 1.3 % (0.2-1.2); Eosinophils Absolute Auto 0.4 K/mm3 (0-0.3); Eosinophils Percent Auto 4.3 % (0-4.4); Hematocrit 50.7 % (42.0-52.0); Hemoglobin 16.3 g/dL (14.0-18.0); Immature Granulocyte Absolute 0.03 K/mm3 (0.00-0.031); Immature Granulocyte Percent A 0.4 % (0-0.5); Lymphocytes Absolute Auto 2.81 K/mm3 (0.9-3.2); Lymphocytes Percent Auto 33.5 % (18.3-44.2); Mean Corpuscular HGB Conc 32.1 g/dl (32-36); Mean Corpuscular Hemoglobin 28.4 pg (26-34); Mean Corpuscular Volume 88.3 fl (80-100); Mean Platelet Volume 9.7 fl (7.4-10.4); Monocytes Absolute Auto 0.7 K/mm3 (0.1-0.6); Monocytes Percent Auto 8.4 % (2.6-8.5); Neutrophils Absolute Auto 4.4 K/mm3 (1.3-6.7); Neutrophils Percent Auto 52.1 % (45.5-73.1); Platelet Count Result 206 k/mm3 (150-375); Red Blood Count 5.74 M/mm3 (4.6-6.20); Red Cell Distribution Width 15.3 % (11.5-14.5); White Blood Count 8.4 K/mm3 (4.5-10.0)
[2023-08-01 17:04] LABS: Alanine Aminotransferase 23 U/L (6-50); Albumin Level 4.2 g/dL (3.5-5.1); Alkaline Phosphatase 69 U/L (38-126); Anion Gap 4 mmol/L (8-16); Aspartate Amino Transferase 29 U/L (17-59); Bilirubin,Total 0.6 mg/dL (0.2-1.3); Blood Urea Nitrogen 17 mg/dL (9-20); Calcium 9.2 mg/dL (8.4-10.2); Carbon Dioxide 26 mmol/L (22-30); Chloride 108 mmol/L (98-107); Cholesterol 223 mg/dL (0-200); Estimated Glomerular Filt Rate > 60; Glucose 91 mg/dL (65-110); HDL Direct 57 mg/dL; Potassium 3.9 mmol/L (3.4-5.0); Sodium 138 mmol/L (137-145); Triglycerides 114 mg/dL (<150)
[2023-08-01 17:15] LABS: LDL Cholesterol Direct 131 mg/dL
[2023-08-01 17:56] LABS: Trichomonas Vag PCR NOT DETECTED (NOT DETECTE)
== END 2023-08-01 16:10 | disposition home or self-care (01) ==
LOC: ANHLAB 16:12
PROVIDERS: PCP Family Medicine; Visit Provider Family Medicine
DX: E78.5 Hyperlipidemia, unspecified (principal); I10 Essential (primary) hypertension; Z20.2 Contact with and (suspected) exposure to infections with a predominantly sexual mode of transmission
CPT/HCPCS: 36415; 80053; 80061; 85025; 87661

== ENCOUNTER 2023-08-26 16:45 | Emergency (ER) | payer OTHER, MEDICAID, SELFPAY ==
--- NOTE | ~2023-08-26 | CT_ITS ---
EXAMINATION: CT thoracic spine wo con DATE: 08/26/2023 19:44 INDICATION: Thoracic back pain TECHNIQUE: Computed tomography (CT) of the thoracic spine was performed without intravenous contrast. The dose-length product (DLP) was 545.94 mGy-cm. Iterative reconstruction was used. COMPARISON: None FINDINGS: Bone alignment is normal. There is no fracture. The vertebral body heights and intervertebr al disc spaces are maintained. The paravertebral soft tissues are normal. IMPRESSION: 1. Unremarkable thoracic spine CT. Reviewed, dictated and finalized at [facility].
--- NOTE | ~2023-08-26 | CT_ITS ---
EXAMINATION: CT abdomen pelvis wo con DATE: 08/26/2023 19:45 INDICATION: Flank pain TECHNIQUE: Computed tomography (CT) of the abdomen and pelvis was performed without intravenous contr ast. The dose-length product (DLP) was 337.51 mGy-cm. Automated exposure control and iterative recons truction technique were employed. COMPARISON: 06/06/2022 FINDINGS: Minimal dependent atelectasis is present in the lung bases. The heart size is normal. The l iver, spleen, pancreas, gallbladder, and adrenal glands are normal. The kidneys are unremarkable. No stones are identified in the kidneys, ureters, or bladder. No hydronephrosis or hydroureter. No free intraperitoneal gas or evidence of bowel obstruction. No pathologically enlarged abdominal or pelvic lymph nodes are identified. The appendix is normal. Surgical changes are noted in the lumbar spine. IMPRESSION: 1. No CT correlate for the patient's symptoms. Reviewed, dictated and finalized at [facility].
--- NOTE | ~2023-08-26 | CT_ITS ---
EXAMINATION: CT cervical spine wo con DATE: 08/26/2023 19:45 INDICATION: Neck and arm pain TECHNIQUE: Computed tomography (CT) of the cervical spine was performed without intravenous contrast. The dose-length product (DLP) was 487.65 mGy-cm. Automated exposure control and iterative reconstruc tion technique were employed. COMPARISON: 12/10/2019 FINDINGS: Bone alignment is normal. There is no fracture. There is mild loss of intervertebral disc s pace height at C5-C6 and C6-7. The odontoid process is intact. There is mild facet joint osteoarthrit is on the left at C2-3 and C3-4. There is mild bilateral uncovertebral joint osteoarthritis at C5-6 a nd C6-7. IMPRESSION: 1. Mild cervical spondylosis without acute findings or significant interval change. Reviewed, dictated and finalized at [facility]. IMPRESSION: 1. Mild cervical spondylosis without acute findings or significant interval spencer nge.
[2023-08-26 16:47] VITALS: BP 124/84; PULSE 71; RESP 18; TEMP 36.4; O2SAT 99
--- NOTE | 2023-08-26 18:40 | ED.GENADULT ---
HPI - General Adult General Chief complaint: Urogenital-Male <Clinton Hunter PA-C - Last Filed: 08/26/23 18:42> Stated complaint: L back/flank pain <Clinton Hunter PA-C - Last Filed: 08/26/23 18:42> Time Seen by Provider: 08/26/23 18:40 <Clinton Hunter PA-C - Last Filed: 08/26/23 18:42> Focused HPI: This is a 53-year-old male who presents to the ED with chief complaint of chronic low back pain and chronic neck pain. Reports that the neck pain is starting to cause pain and numbness radiating down the left shoulder and left arm. He also reports some radiating burning pain into the buttocks. Reports history of low back surgery many years ago but has not had work done on the neck. 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 Additional complaints of urinary burning that comes and goes. He has been dealing with this for a couple of months. Recent diagnosis of UTI Trichomonas a few months ago and took his antibiotics all the way through. No specific concerns for STDs today but he would like us to check a urinalysis and STD check again. Denies fevers, chills, bowel or bladder dysfunction, groin numbness, chest pain or shortness of breath. GENERAL: Well-appearing, well-nourished, and in no acute distress. HEAD: Normocephalic, atraumatic. CHEST: Clear to auscultation. No respiratory distress. HEART: Regular rate and rhythm. NEURO: Alert and oriented x3. Patient screened in triage and initial orders placed. Additional care and disposition to be based upon diagnostic testing and treatment. <Clinton Hunter PA-C - Last Filed: 08/26/23 18:42> Source: patient <Clinton Hunter PA-C - Last Filed: 08/26/23 18:42> Limitations: no limitations <Clinton Hunter PA-C - Last Filed: 08/26/23 18:42> History of Present Illness HPI narrative: 53-year-old male presents emergency department for evaluation shoulder pain/neck pain, lower back pain and concern for STI <Myorn Bagley MD - Last Filed: 08/26/23 22:44> Related Data Allergies/adverse reactions: Allergies Allergy/AdvReac Type Severity Reaction Status Date / Time No Known Allergies Allergy Verified 08/26/23 19:13 <Clinton Hunter PA-C - Last Filed: 08/26/23 18:42> Review of Systems Review of Systems: All systems reviewed & are unremarkable except as noted in HPI and below <Myron Bagley MD - Last Filed: 08/26/23 22:44> PMFSH Past Medical History Medical History: Medical History (Updated 08/26/23 @ 21:08 by Myron Bagley MD) Anxiety Back pain GERD (gastroesophageal reflux disease) Hyperlipemia Shoulder fracture, right Sinus problem <Clinton Hunter PA-C - Last Filed: 08/26/23 18:42> Surgical History Surgical History: Surgical History History of back surgery History of shoulder surgery right shoulder Fx repair <Clinton Hunter PA-C - Last Filed: 08/26/23 18:42> Family History Family History: Family History Sibling Hypertension Mother Cancer <Clinton Hunter PA-C - Last Filed: 08/26/23 18:42> Social History Social History: Social History Smoking packs per day: 0.5 Smoking cigarettes per day: 10.0 Smoking status: Smoker, status unknown Second hand tobacco smoke exposure: No Alcohol intake: current Substance use: current Substance use type: marijuana Living arrangements: with family Gender identity (if verbalized by the patient): Male <Clinton Hunter PA-C - Last Filed: 08/26/23 18:42> Exam Narrative: APPEARANCE: Well appearing, no pain, no distress, well-nourished. HEAD: normocephalic, atraumatic. EYES: PERRLA/EOMI, conjunctivae clear. NOSE: Normal no drainage EARS:TMS clear with good light reflex. THROAT: Pharynx clear, no exudate. NECK: Supple. No adenopat
[2023-08-26 19:48] LABS: Bacteria Urine None Seen /hpf; RBC Urine 0-2 /hpf (0-2); Squamous Epithelial Cell Urine None Seen /hpf (Few); WBC Urine 0-5 /hpf (0-3)
[2023-08-26 19:57] LABS: Appearance Urine Clear (Clear); Color Urine Yellow (Yellow)
[2023-08-26 19:58] LABS: Glucose Urine UA Negative (Negative); Protein Urine Negative (Negative); Specific Grav Ur <= 1.005 (1.001-1.035)
[2023-08-26 19:59] LABS: Bilirubin Urine Negative (Negative); Blood Urine Trace-Lysed (Negative); Ketones Urine Negative (Negative); Nitrate Urine Negative (Negative)
[2023-08-26 20:00] LABS: Add Urine Microscopic? YES; Leukocyte Esterase Ur Negative LEU/UL (Negative); Urobilinogen Urine 0.2 mg/dL (<2.0)
[2023-08-26 20:09] LABS: Basophils Absolute Auto 0.1 K/mm3 (0.0-0.1); Basophils Percent Auto 1.3 % (0.2-1.2); Eosinophils Absolute Auto 0.2 K/mm3 (0-0.3); Eosinophils Percent Auto 3.1 % (0-4.4); Hemoglobin 16.7 g/dL (14.0-18.0); Immature Granulocyte Absolute 0.01 K/mm3 (0.00-0.031); Immature Granulocyte Percent A 0.2 % (0-0.5); Lymphocytes Absolute Auto 2.46 K/mm3 (0.9-3.2); Lymphocytes Percent Auto 39.6 % (18.3-44.2); Mean Corpuscular HGB Conc 32.7 g/dl (32-36); Mean Corpuscular Hemoglobin 28.5 pg (26-34); Mean Platelet Volume 9.6 fl (7.4-10.4); Monocytes Absolute Auto 0.5 K/mm3 (0.1-0.6); Monocytes Percent Auto 7.6 % (2.6-8.5); Neutrophils Percent Auto 48.2 % (45.5-73.1); Platelet Count Result 202 k/mm3 (150-375); Red Blood Count 5.86 M/mm3 (4.6-6.20); Red Cell Distribution Width 14.8 % (11.5-14.5); White Blood Count 6.2 K/mm3 (4.5-10.0)
[2023-08-26 20:20] LABS: Alanine Aminotransferase 25 U/L (6-50); Albumin Level 4.3 g/dL (3.5-5.1); Alkaline Phosphatase 70 U/L (38-126); Anion Gap 2 mmol/L (8-16); Aspartate Amino Transferase 35 U/L (17-59); Bilirubin,Total 0.7 mg/dL (0.2-1.3); Blood Urea Nitrogen 15 mg/dL (9-20); Calcium 9.3 mg/dL (8.4-10.2); Carbon Dioxide 28 mmol/L (22-30); Chloride 105 mmol/L (98-107); Estimated CRCL calculation 73 ml/min; Estimated Glomerular Filt Rate > 60; Glucose 84 mg/dL (65-110); Lactic Acid Reflex 0.6 mmol/L (0.7-2.0); Potassium 4.2 mmol/L (3.4-5.0); Sodium 135 mmol/L (137-145)
[2023-08-26 21:16] LABS: Trichomonas Vag PCR NOT DETECTED (NOT DETECTE)
[2023-08-26 21:18] VITALS: BP 113/73; PULSE 63; RESP 16; O2SAT 98
[2023-08-26 21:39] LABS: Chlamydia trachomatis NOT DETECTED (NOT DETECTE); Neisseria gonorrhoeae PCR NOT DETECTED (NOT DETECTE)
== END 2023-08-26 21:18 | disposition home or self-care (01) ==
PROVIDERS: Emergency Medicine; Physician Assistant; Emergency Provider Emergency Medicine; PCP Family Medicine
DX: M54.50 Low back pain, unspecified (principal); M54.12 Radiculopathy, cervical region; G89.29 Other chronic pain; E78.5 Hyperlipidemia, unspecified; K21.9 Gastro-esophageal reflux disease without esophagitis; F17.210 Nicotine dependence, cigarettes, uncomplicated; M47.812 Spondylosis without myelopathy or radiculopathy, cervical region
CPT/HCPCS: 36415; 72125; 72128; 74176; 80053; 81001; 83605; 85025; 87491; 87591; 87661; 99284

== ENCOUNTER 2023-09-03 12:50 | Emergency (ER) | payer OTHER, MEDICAID, SELFPAY ==
[2023-09-03 13:04] VITALS: BP 123/84; PULSE 65; RESP 16; TEMP 36.2; O2SAT 99
--- NOTE | 2023-09-03 13:16 | ED.GENADULT ---
HPI - General Adult General Chief complaint: Ear Stated complaint: right ear/side of head pain Time Seen by Provider: 09/03/23 13:16 Source: patient, RN notes reviewed and old records reviewed Mode of arrival: ambulatory Limitations: no limitations History of Present Illness HPI narrative: 53-year-old male presents to the [facility] with complaints of the last 2-3 days increasing right ear pain as well as discomfort to the right side of his head. Reports a runny nose denies fevers. Denies cough, CT chest pain, abdominal pain. No treatment prior to arrival Onset (ago): day(s) (2-3) Related Data Allergies Allergy/AdvReac Type Severity Reaction Status Date / Time No Known Allergies Allergy Verified 09/03/23 13:01 Review of Systems Review of Systems: All systems reviewed & are unremarkable except as noted in HPI and below Constitutional: Constitutional: Reports no additional constitutional complaints Eyes: Eyes: Reports no additional eye complaints ENT: Reports as per HPI and Reports otalgia Cardiovascular: Cardiovascular: Reports no additional cardiovascular complaints, Denies chest pain and Denies dyspnea Respiratory: Respiratory: Reports no additional respiratory complaints, Denies chest congestion, Denies cough and Denies dyspnea Gastrointestinal: Gastrointestinal: Reports no additional gastrointestinal complaints, Denies abdominal pain, Denies nausea and Denies vomiting Musculoskeletal: Musculoskeletal: Reports no additional musculoskeletal complaints Integumentary/Breasts: Skin/Breast: Reports system reviewed and no additional complaints, except as docu Neurologic: Reports system reviewed and no additional complaints, except as documented Psychiatric: Psychiatric: Reports no additional psychiatric complaints Allergic/Immunologic: Allergic/Immunologic: Reports no additional allergic/immunologic complaints [facility] Past Medical History Medical History Anxiety Back pain GERD (gastroesophageal reflux disease) Hyperlipemia Shoulder fracture, right Sinus problem Surgical History Surgical History History of back surgery History of shoulder surgery right shoulder Fx repair Family History Family History Sibling Hypertension Mother Cancer Social History Social History Smoking packs per day: 0.5 Smoking cigarettes per day: 10.0 Smoking status: Smoker, status unknown Second hand tobacco smoke exposure: No Alcohol intake: current Substance use: current Substance use type: marijuana Living arrangements: with family Gender identity (if verbalized by the patient): Male Comments At the time of my signature, I reviewed and agree with the nursing past medical, surgical, social, and family history. There is no relevant family history pertinent to the patient complaint. Exam Const: General: cooperative, healthy appearing, comfortable, no acute distress, well developed, alert and well nourished Nutritional Appearance: well nourished Orientation/consciousness: patient oriented x3 Limitations: no limitations HENMT: Head: normal to inspection Ears: hearing grossly normal bilaterally, external ears normal, EAC's normal, mastoids normal, no periauricular adenopathy and TM abnormal wth effusion serous bilateral (Worse on the right than the left) Face/Nose/Sinus: Normal external nose present, Normal nares present, Normal nasal mucous membranes and turbinates present, Nasal discharge present clear bilateral, normal facial exam and face symmetric Face and sinus: normal facial exam and face symmetric Mouth: Yes Normal oral and palatal mucosa present, Yes lip normal and Yes moist mucous membranes Throat: posterior oropharynx normal, uvula midline, postnasal drainage and
== END 2023-09-03 13:35 | disposition home or self-care (01) ==
PROVIDERS: Emergency Provider Nurse Practitioner; PCP Family Medicine
DX: H65.01 Acute serous otitis media, right ear (principal); J30.2 Other seasonal allergic rhinitis; K21.9 Gastro-esophageal reflux disease without esophagitis; E78.5 Hyperlipidemia, unspecified
CPT/HCPCS: 99211; G0463

== ENCOUNTER 2023-09-03 21:17 | Emergency (ER) | payer OTHER, MEDICAID, SELFPAY ==
[2023-09-03 21:27] VITALS: BP 114/85; PULSE 71; RESP 20; TEMP 36.4; O2SAT 98
--- NOTE | 2023-09-03 21:55 | ED.EAR ---
HPI - Ear Problem General Chief complaint: Ear Stated complaint: ear complaint Time Seen by Provider: 09/03/23 21:50 Source: patient Mode of arrival: ambulatory Limitations: no limitations History of Present Illness HPI Narrative: This is a 53-year-old male that presents to the emergency department for right ear pain. Ongoing over the last couple of days. Evaluated urgent care and started on antihistamines. He has been taking his with little relief. Denies fevers or drainage. Related Data Allergies Allergy/AdvReac Type Severity Reaction Status Date / Time No Known Allergies Allergy Verified 09/03/23 21:34 Review of Systems Review of Systems: CONSTITUTIONAL: Denies fever ENT: Reports otalgia. All systems reviewed & are unremarkable except as noted in HPI and below PMFSH Past Medical History Medical History (Updated 09/03/23 @ 21:56 by Mylene Fonseca PA-C) Anxiety Back pain GERD (gastroesophageal reflux disease) Hyperlipemia Shoulder fracture, right Sinus problem Surgical History Surgical History History of back surgery History of shoulder surgery right shoulder Fx repair Family History Family History Sibling Hypertension Mother Cancer Social History Social History Smoking packs per day: 0.5 Smoking cigarettes per day: 10.0 Smoking status: Smoker, status unknown Second hand tobacco smoke exposure: No Alcohol intake: current Substance use: current Substance use type: marijuana Living arrangements: with family Gender identity (if verbalized by the patient): Male Exam Narrative: GENERAL: Well-appearing, well-nourished, and in no acute distress. HEAD: Normocephalic, atraumatic. EYES: EOMI. ENT: Nares clear, no rhinorrhea or epistaxis. Mucous membranes moist. Left TM pearly alanis non-bulging. Right TM bulging with fluid present NECK: Supple. No adenopathy or masses. CHEST: Clear to auscultation. No respiratory distress. No wheezes rales or rhonchi HEART: Regular rate and rhythm. No murmur heard. Normal peripheral pulses. EXTREMITIES: Normal range of motion. No edema. SKIN: Warm, dry, no rash. NEURO: No focal deficits. Alert and oriented x3. PSYCH: Normal mood and affect Course Course Emergency Course: Patient agrees with plan of care Vital Signs Vital signs: Vital Signs Temperature 97.5 F L 09/03/23 21:27 Pulse Rate 71 09/03/23 21:27 Respiratory Rate 20 09/03/23 21:27 Blood Pressure 114/85 09/03/23 21:27 Pulse Oximetry 98 09/03/23 21:27 Oxygen Delivery Room Air 09/03/23 21:27 Temperature 97.5 F L 09/03/23 21:27 Pulse Rate 71 09/03/23 21:27 Respiratory Rate 20 09/03/23 21:27 Blood Pressure 114/85 09/03/23 21:27 Pulse Oximetry 98 09/03/23 21:27 Oxygen Delivery Room Air 09/03/23 21:27 Medical Decision Making MDM Narrative Medical decision making narrative: Patient presents to the ER for right ear pain. Ongoing over the last couple of days. Evaluated at urgent care and started on antihistamines. Presents to the ER for continued pain. TM is bulging with fluids behind it and mild inflammation. Will be started on Augmentin and given follow up with ENT if symptoms persist. He was given warnings to return to the ER Vital Signs Vital Signs: Vital Signs Temperature 97.5 F L 09/03/23 21:27 Pulse Rate 71 09/03/23 21:27 Respiratory Rate 20 09/03/23 21:27 Blood Pressure 114/85 09/03/23 21:27 Pulse Oximetry 98 09/03/23 21:27 Oxygen Delivery Room Air 09/03/23 21:27 Temperature 97.5 F L 09/03/23 21:27 Pulse Rate 71 09/03/23 21:27 Respiratory Rate 20 09/03/23 21:27 Blood Pressure 114/85 09/03/23 21:27 Pulse Oximetry 98 09/03/23 21:27 Oxygen Delivery Room Air 09/03/23 21:27 Critical Care Ti
[2023-09-03] MEDS: AMOXICILLIN/CLAVULANATE K 875-125 MG TAB 1 TABLET PO (22:11)
== END 2023-09-03 22:26 | disposition home or self-care (01) ==
LOC: ANHED 22:03
PROVIDERS: Emergency Provider Physician Assistant; PCP Family Medicine
DX: H66.91 Otitis media, unspecified, right ear (principal); E78.5 Hyperlipidemia, unspecified; K21.9 Gastro-esophageal reflux disease without esophagitis; F17.210 Nicotine dependence, cigarettes, uncomplicated
CPT/HCPCS: 99283; A9270

== ENCOUNTER 2023-10-01 10:16 | Emergency (ER) | payer OTHER, MEDICAID, SELFPAY ==
[2023-10-01 10:44] VITALS: BP 107/78; PULSE 65; RESP 16; TEMP 36.4; O2SAT 100
--- NOTE | 2023-10-01 11:26 | PC.NURSE ---
Pt c/o of left neck pain that radiates to left shoulder, left back & left arm. CMS intact.
== END 2023-10-01 12:15 | disposition left against medical advice (07) ==
PROVIDERS: PCP Family Medicine
DX: M54.2 Cervicalgia (principal)
CPT/HCPCS: 99199

== ENCOUNTER 2023-10-01 14:10 | Emergency (ER) | payer OTHER, MEDICAID, SELFPAY ==
[2023-10-01 14:20] VITALS: BP 99/65; PULSE 77; RESP 16; TEMP 36.9; O2SAT 100
--- NOTE | 2023-10-01 14:39 | ED.NECK ---
HPI - Neck Pain/Injury General Chief Complaint: Extremity Problem,Nontraumatic Stated Complaint: Left Neck/Arm Pain Time Seen by Provider: 10/01/23 14:42 Source: patient and RN notes reviewed Mode of arrival: ambulatory Limitations: no limitations History of Present Illness HPI Narrative: 53-year-old male presents with concern for chronic neck pain. Reports he is having left-sided neck pain that radiates down the left arm, left arm tenderness for months. He was seen in the ER for this 1 month ago was given steroids and muscle relaxers. Reports he did not take that very much because he does not like to take medicine. He denies any specific injury or trauma. He denies loss of bowel or bladder function, decreased sensation, strength, range of motion in the neck or any extremity MD complaint: neck pain Related Data Allergies Allergy/AdvReac Type Severity Reaction Status Date / Time No Known Allergies Allergy Verified 10/01/23 14:21 Review of Systems Review of Systems: CONSTITUTIONAL: Denies malaise, chills, sweats, or fever. CARDIOVASCULAR: Denies chest pain, palpitations, or edema. RESPIRATORY: Denies cough or dyspnea. GASTROINTESTINAL: Denies abdominal pain, nausea, vomiting, diarrhea, loss of bowel function GENITOURINARY: Denies dysuria, hematuria, frequency, loss of bladder function. SKIN: Denies rash or itching. MUSCULOSKELETAL: Reports neck and left arm pain NEUROLOGIC: Denies numbness, weakness, or headache. All systems reviewed & are unremarkable except as noted in HPI and below PMFSH Past Medical History Medical History (Updated 10/01/23 @ 14:55 by Pepper Sanders NP) Anxiety Back pain GERD (gastroesophageal reflux disease) Hyperlipemia Shoulder fracture, right Sinus problem Surgical History Surgical History History of back surgery History of shoulder surgery right shoulder Fx repair Family History Family History Sibling Hypertension Mother Cancer Social History Social History Smoking packs per day: 0.5 Smoking cigarettes per day: 10.0 Smoking status: Smoker, status unknown Second hand tobacco smoke exposure: No Alcohol intake: current Substance use: current Substance use type: marijuana Living arrangements: with family Gender identity (if verbalized by the patient): Male Comments At time of signature, agree with nursing past medical, surgical, social and family history. There is no relevant family history pertinent to the presenting complaint Exam Narrative: GENERAL: Well-appearing, well-nourished, and in no acute distress. HEAD: Normocephalic, atraumatic. EYES: PERRLA and EOMI. NECK: Supple. No lymphadenopathy. CHEST: Clear to auscultation. No respiratory distress. HEART: Regular rate and rhythm. Distal pulses palpable and equal, cap refill <3 seconds MUSCULOSKELETAL: Normal range of motion and strength in all extremities; 5/5 strength with hip flexion and extension, dorsiflexion and extension, knee flexion and extension, plantar flexion and extension. Normal sensation in dermatomal distributions with sensitivity to light touch and pain. No midline back tenderness to palpation. No paraspinal tenderness. Transfers from sitting to standing. SKIN: Warm, dry, no rash. No ecchymosis, erythema, open wounds to neck or back. NEURO: No focal deficits. Alert and oriented x3. Normal gait. PSYCH: Normal mood and affect Course Course Emergency Course: Patient is aware of diagnosis, understands and agrees to treatment plan. Anticipatory guidance given. Patient agrees to follow-up as directed and is aware of reasons to seek care at the emergency department. Portions of this record may have been created with voice recognition software Level of Care: Express Care Visit Vital Signs Vital si
== END 2023-10-01 15:00 | disposition home or self-care (01) ==
PROVIDERS: Emergency Provider Nurse Practitioner; PCP Family Medicine
DX: M54.12 Radiculopathy, cervical region (principal); F12.90 Cannabis use, unspecified, uncomplicated; K21.9 Gastro-esophageal reflux disease without esophagitis; E78.5 Hyperlipidemia, unspecified
CPT/HCPCS: 99212; G0463

== ENCOUNTER 2023-10-26 09:49 | Emergency (ER) | payer OTHER, MEDICAID, SELFPAY ==
[2023-10-26 10:05] VITALS: BP 120/72; PULSE 75; RESP 18; TEMP 36.5; O2SAT 98
--- NOTE | 2023-10-26 10:18 | ED.GENADULT ---
HPI - General Adult General Chief complaint: Upper Respiratory Infection Stated complaint: Cough Time Seen by Provider: 10/26/23 10:20 Source: patient, RN notes reviewed and old records reviewed Mode of arrival: ambulatory Limitations: no limitations History of Present Illness HPI narrative: 53-year-old male presents to the [facility] with a cough x1 week. Denies taking anything to help his symptoms. Patient is a smoker Reports intermittent sore throat, intermittent sinus congestion Patient also concern for low back pain which is chronic. Has not seen or followed up with primary care provider for further evaluation Walks with a normal gait. Denies any loss retention of bowel or bladder. Denies any numbness or tingling in extremities Related Data Home Medications Medication Instructions Recorded Confirmed cyclobenzaprine 5 mg tablet 5 mg PO QID PRN back spsri 10/26/23 10/26/23 Allergies Allergy/AdvReac Type Severity Reaction Status Date / Time No Known Allergies Allergy Verified 10/26/23 09:57 Review of Systems Review of Systems: All systems reviewed & are unremarkable except as noted in HPI and below Constitutional: Constitutional: Reports no additional constitutional complaints Eyes: Eyes: Reports no additional eye complaints ENT: Reports system reviewed and no additional complaints, except as documented Cardiovascular: Cardiovascular: Reports no additional cardiovascular complaints, Denies chest pain and Denies dyspnea Respiratory: Respiratory: Reports as per HPI, Denies chest congestion, Reports cough and Denies dyspnea Gastrointestinal: Gastrointestinal: Reports no additional gastrointestinal complaints, Denies abdominal pain, Denies nausea and Denies vomiting Musculoskeletal: Musculoskeletal: Reports no additional musculoskeletal complaints Integumentary/Breasts: Skin/Breast: Reports system reviewed and no additional complaints, except as docu Neurologic: Reports system reviewed and no additional complaints, except as documented Psychiatric: Psychiatric: Reports no additional psychiatric complaints Allergic/Immunologic: Allergic/Immunologic: Reports no additional allergic/immunologic complaints [facility] Past Medical History Medical History Anxiety Back pain GERD (gastroesophageal reflux disease) Hyperlipemia Shoulder fracture, right Sinus problem Surgical History Surgical History History of back surgery History of shoulder surgery right shoulder Fx repair Family History Family History Sibling Hypertension Mother Cancer Social History Social History Smoking packs per day: 0.5 Smoking cigarettes per day: 10.0 Smoking status: Smoker, status unknown Second hand tobacco smoke exposure: No Alcohol intake: current Substance use: current Substance use type: marijuana Living arrangements: with family Gender identity (if verbalized by the patient): Male Comments At the time of my signature, I reviewed and agree with the nursing past medical, surgical, social, and family history. There is no relevant family history pertinent to the patient complaint. Exam Const: General: cooperative, healthy appearing, comfortable, no acute distress, well developed, alert and well nourished Nutritional Appearance: well nourished Orientation/consciousness: patient oriented x3 Limitations: no limitations HENMT: Head: normal to inspection Ears: hearing grossly normal bilaterally, external ears normal, TM's normal bilaterally and EAC's normal Face/Nose/Sinus: Normal external nose present, Normal nares present, Normal nasal mucous membranes and turbinates present, normal facial exam and face symmetric Face and sinus: normal facial exam and face symmetric
== END 2023-10-26 10:42 | disposition home or self-care (01) ==
PROVIDERS: Emergency Provider Nurse Practitioner; PCP Emergency Medicine
DX: J40 Bronchitis, not specified as acute or chronic (principal); R09.82 Postnasal drip; F12.90 Cannabis use, unspecified, uncomplicated; K21.9 Gastro-esophageal reflux disease without esophagitis; E78.5 Hyperlipidemia, unspecified
CPT/HCPCS: 99213; G0463

== ENCOUNTER 2024-03-12 17:16 | Emergency (ER) | payer MEDICAID, SELFPAY ==
[2024-03-12 17:19] VITALS: BP 125/78; PULSE 85; RESP 16; TEMP 36.6; O2SAT 99
[2024-03-12 17:53] LABS: Add Urine Microscopic? NO; Appearance Urine Clear (Clear); Bilirubin Urine Negative (Negative); Blood Urine Negative (Negative); Color Urine Yellow (Yellow); Glucose Urine UA Negative (Negative); Ketones Urine Negative (Negative); Leukocyte Esterase Ur Negative LEU/UL (Negative); Nitrate Urine Negative (Negative); Protein Urine Negative (Negative); Specific Grav Ur 1.025 (1.001-1.035)
--- NOTE | 2024-03-12 19:26 | ED.MALEGU ---
HPI - Male Genitourinary General Chief complaint: Urogenital-Male Stated complaint: STI check, painful urination, bodyaches Time Seen by Provider: 03/12/24 19:03 History of Present Illness HPI Narrative: Patient is a 53-year-old male who presents to the ER with body aches and urinary symptoms. He reports the body aches started few days ago along with the burning with urination. Patient denies any pertinent medical history. He said he has been diagnosed with high blood pressure in the plan passed but he does not believe in taking medicine for that stuff. He reports he has been drinking lots of water and soda. Patient denies chest pain, shortness of breath, or other signs of illness. Related Data Home Medications Medication Instructions Recorded Confirmed cyclobenzaprine 5 mg tablet 5 mg PO QID PRN back spsms 10/26/23 10/26/23 Allergies Allergy/AdvReac Type Severity Reaction Status Date / Time No Known Allergies Allergy Verified 10/26/23 09:57 Review of Systems Review of Systems: All systems reviewed & are unremarkable except as noted in HPI and below PMFSH Past Medical History Medical History (Updated 03/12/24 @ 20:36 by Julissa Lim APRN) Anxiety Back pain GERD (gastroesophageal reflux disease) Hyperlipemia Shoulder fracture, right Sinus problem Surgical History Surgical History History of back surgery History of shoulder surgery right shoulder Fx repair Family History Family History Sibling Hypertension Mother Cancer Social History Social History Smoking packs per day: 0.5 Smoking cigarettes per day: 10.0 Smoking status: Smoker, status unknown Second hand tobacco smoke exposure: No Alcohol intake: current Substance use: current Substance use type: marijuana Living arrangements: with family Gender identity (if verbalized by the patient): Male Exam Narrative: GENERAL: Well appearing, well-nourished, non-toxic, in no acute distress. HEAD: Normocephalic, atraumatic. NECK: Supple. No adenopathy, no masses. RESPIRATORY: Airway patent, respirations nonlabored. Clear to auscultation bilaterally, no rales, rhonchi, wheezing. CARDIOVASCULAR: Regular rate and rhythm without murmurs, rubs, or gallops. Peripheral pulses 2+ and equal bilaterally. ABDOMINAL: Soft, nontender with palpation, nondistended, no hepatosplenomegaly. Normoactive BS. MUSCULOSKELETAL: Moves all extremities. Strength/ROM intact without gross deformities. SKIN: Warm, dry, normal color. No rashes. NEURO: A&O X3. Speech clear. Cranial nerves II-XII grossly intact. No ataxic movements. PSYCHIATRIC: Appropriate mood and affect. Normal interaction. Course Vital Signs Vital signs: Vital Signs Temperature 36.6 C 03/12/24 17:19 Pulse Rate 85 03/12/24 17:19 Respiratory Rate 16 03/12/24 17:19 Blood Pressure 125/78 03/12/24 17:19 Pulse Oximetry 99 03/12/24 17:19 Temperature 36.6 C 03/12/24 17:19 Pulse Rate 85 03/12/24 17:19 Respiratory Rate 16 03/12/24 17:19 Blood Pressure 125/78 03/12/24 17:19 Pulse Oximetry 99 03/12/24 17:19 MDM - Male Genitourinary MDM Narrative Medical decision making narrative: Patient is a 53-year-old male who presents to the ER with body aches and urinary symptoms. He reports the body aches started few days ago along with the burning with urination. Patient denies any pertinent medical history. He said he has been diagnosed with high blood pressure in the plan passed but he does not believe in taking medicine for that stuff. He reports he has been drinking lots of water and soda. Patient denies chest pain, shortness of breath, or other signs of illness. Patient's urinalysis, Trichomonas, ch
[2024-03-12 19:44] LABS: Trichomonas Vag PCR NOT DETECTED (NOT DETECTE)
[2024-03-12 20:08] LABS: Chlamydia trachomatis NOT DETECTED (NOT DETECTE); Neisseria gonorrhoeae PCR NOT DETECTED (NOT DETECTE)
--- NOTE | 2024-03-12 20:19 | PC.NURSE ---
pt states that they would like to decline COVID, Flu, RSV swab and is ready to get discharged since other results came back negative. notified ED provider and they will be making discharge plan.
== END 2024-03-12 20:45 | disposition home or self-care (01) ==
PROVIDERS: Physician Assistant; Preventive Medicine Aerospace Medicine; Emergency Provider Registered Nurse; PCP Emergency Medicine
DX: R30.0 Dysuria (principal); M79.10 Myalgia, unspecified site; E78.5 Hyperlipidemia, unspecified; K21.9 Gastro-esophageal reflux disease without esophagitis; F17.210 Nicotine dependence, cigarettes, uncomplicated; Z79.899 Other long term (current) drug therapy
CPT/HCPCS: 81003; 87491; 87591; 87661; 99283

== ENCOUNTER 2024-08-12 14:26 | Emergency (ER) | payer MEDICAID, OTHER, SELFPAY ==
--- NOTE | ~2024-08-12 | XR_ITS ---
XR chest 2V Ordering provider: Juvenal Chow MD History: 54 years Male with . chest pain . Comparison: March 11, 2021 FINDINGS: MEDIASTINUM: The cardiac silhouette is not enlarged. LUNGS: No infiltrates, effusions or pneumothorax. OTHER: No free air under the diaphragm. IMPRESSION: No acute cardiopulmonary pathology. Reviewed, dictated and finalized at location A.
--- NOTE | 2024-08-12 14:27 | ECG_ITS ---
Test Date: 2024-08-12 14:38:42 Measurements Intervals [place] Rate: 67 P: 72 [place]: 140 QRS: -37 QRSD: 90 T: -4 QT: 353 QTc: 375 Interpretive Statements SINUS RHYTHM LEFT AXIS DEVIATION [QRS AXIS < -30] No previous ECG available for comparison Electronically Signed On 08-13-2024 13:53:50 CDT by Trey Borja M.D.
[2024-08-12 14:40] VITALS: BP 138/89; PULSE 73; RESP 18; TEMP 36.8; O2SAT 99
[2024-08-12 15:20] LABS: Basophils Absolute Auto 0.1 K/mm3 (0.0-0.1); Basophils Percent Auto 1.7 % (0.2-1.2); Eosinophils Absolute Auto 0.2 K/mm3 (0-0.3); Eosinophils Percent Auto 3.3 % (0-4.4); Hematocrit 51.1 % (42.0-52.0); Hemoglobin 16.6 g/dL (14.0-18.0); Immature Granulocyte Absolute 0.02 K/mm3 (0.00-0.031); Immature Granulocyte Percent A 0.3 % (0-0.5); Lymphocytes Absolute Auto 2.55 K/mm3 (0.9-3.2); Lymphocytes Percent Auto 36.8 % (18.3-44.2); Mean Corpuscular HGB Conc 32.5 g/dl (32-36); Mean Corpuscular Hemoglobin 28.8 pg (26-34); Mean Corpuscular Volume 88.7 fl (80-100); Mean Platelet Volume 9.6 fl (7.4-10.4); Monocytes Absolute Auto 0.5 K/mm3 (0.1-0.6); Monocytes Percent Auto 7.1 % (2.6-8.5); Neutrophils Absolute Auto 3.5 K/mm3 (1.3-6.7); Neutrophils Percent Auto 50.8 % (45.5-73.1); Platelet Count Result 204 k/mm3 (150-375); Red Blood Count 5.76 M/mm3 (4.6-6.20); Red Cell Distribution Width 14.5 % (11.5-14.5); White Blood Count 6.9 K/mm3 (4.5-10.0)
[2024-08-12 15:32] LABS: Alanine Aminotransferase 37 U/L (6-50); Albumin Level 4.3 g/dL (3.5-5.1); Alkaline Phosphatase 68 U/L (38-126); Anion Gap 9 mmol/L (4-12); Aspartate Amino Transferase 42 U/L (17-59); Bilirubin,Total 0.6 mg/dL (0.2-1.3); Blood Urea Nitrogen 15 mg/dL (9-20); Carbon Dioxide 23 mmol/L (22-30); Chloride 107 mmol/L (98-107); Estimated CRCL calculation 64 ml/min; Estimated Glomerular Filt Rate > 60; Glucose 90 mg/dL (65-110); INR 0.9; Lipase 81 U/L (23-300); Partial Thromboplastin Time 28.1 Seconds (22.3-36.8); Potassium 4.4 mmol/L (3.4-5.0); Prothrombin Time 12.7 Seconds (11.1-14.7); Sodium 139 mmol/L (137-145)
[2024-08-12 15:44] LABS: Troponin I < 0.012 ng/mL (0.000-0.034)
[2024-08-12 15:50] LABS: D Dimer < 0.27 ug/mL (<0.48)
[2024-08-12] MEDS: ASPIRIN 81 MG CHEWABLE TABLET 324 MG PO (15:53)
--- OUTSIDE RECORDS SUMMARY | 2024-08-12 16:19 | XMS_ITS | Continuity of Care Document ---
Author Organization [facility] [place] [address] [place] [address] [address] [place] [address] Phone Care Team Providers Care Food Safety Auditor Name Role Phone Rosa Mansfield Unavailable Unavailable Procedures Procedure Date Remove Eyelid Lesion Advance Directives Directive Yes / No Effective Date File Name No Information Encounters Encounter Description Practice Location Reason(s) For Visit Diagnoses Date Provider Providers Copied on Encounter [facility], [id number] [place] [address] [address], [place], [place], [id number], [place] tel:[phone] [facility] No Information Aug-0 6-200 7 Shyla Lee. [address] , [address], [place], [address], [place]. tel:[phone] Family History Family Member Type Diagnosis Age At Onset No Information Payers Payer name Insurance type Covered constitution party ID Authoriza tion(s) No Information Social History [...]
--- OUTSIDE RECORDS SUMMARY | 2024-08-12 16:19 | XMS_ITS | Continuity of Care Document ---
Author Organization [facility] Address [address] [facility] [address] [place] [address] Phone Care Team Providers Care Opener Tender Name Role Phone Harinder Appiah MD Unavailable Unavailable Procedures Procedure Date Special Narrative Report Work/medical disability examination ROGELIO X-ray exam of neck spine2-3 views Advance Directives Directive Yes / No Effective Date File Name No Information Encounters Encounter Description Practice Location Reason(s) For Visit Diagnoses Date Provider Providers Copied on Encounter [facility], [address], [address] [place] [address], tel:[phone] [facility] No Information 7-[address]. [address], [address] [place] [address] , . tel: [phone] Work/medical disability examination ROGELIO [facility], [address] [place] [address], [address] [place] [address], tel:[phone] [facility] No Information [address] [facility], [address], [id number] , [place]. tel: [phone] Family History Family Member Type Diagnosis Age At Onset No Information Payers Payer name Insurance type Covered republican ID Kathi limon(jose luis) [employer] [id number] Social History Type Description Quantity Date Captured [...]
--- NOTE | 2024-08-12 16:50 | ED.CHESTPAIN ---
HPI - Chest Pain General Chief Complaint: Chest Pain Stated Complaint: middle chest pain since last night Time Seen by Provider: 08/12/24 15:17 History of Present Illness HPI narrative: 54-year-old male with a past medical history including hyperlipidemia. Patient presents to the emergency department for evaluation of midsternal chest pain. Stated that somewhat radiated down his right arm. Intermittent in nature and worse with activity. He states that his been going on for several weeks. He is concerned that his cousin recently of a heart attack and wants to get checked out. No history of cardiac disease to the patient's knowledge. Does not have any history of hypertension, does not take any blood pressure medications. Endorses some smoking but no illicit substance use. Denies any pleuritic chest pain or shortness of breath. No nausea, vomiting, vision changes, back pain, abdominal pain. He was otherwise in his normal state of health. Does repetitive motions at work which states makes the pain worse. Related Data Home Medications ?Medication ?Instructions ?Recorded ?Confirmed ?Last Taken ?Type cyclobenzaprine 5 mg tablet 5 mg PO QID PRN back spsms 10/26/23 10/26/23 Unknown History Allergies Allergy/AdvReac Type Severity Reaction Status Date / Time No Known Allergies Allergy Verified 08/12/24 14:27 Review of Systems Review of Systems: Agree with the HPI above [facility] Past Medical History Medical History (Updated 08/12/24 @ 16:56 by Juvenal Chow MD) Anxiety Back pain Shoulder fracture, right GERD (gastroesophageal reflux disease) Hyperlipemia Sinus problem Surgical History Surgical History History of back surgery History of shoulder surgery right shoulder Fx repair Family History Family History Sibling Hypertension Mother Cancer Social History Social History Smoking packs per day: 0.5 Smoking cigarettes per day: 10.0 Smoking status: Smoker, status unknown Second hand tobacco smoke exposure: No Alcohol intake: current Substance use: current Substance use type: marijuana Living arrangements: with family Gender identity (if verbalized by the patient): Male Exam Narrative: GENERAL: [Well-appearing, well-nourished, and in no acute distress.] HEAD: [Normocephalic, atraumatic.] EYES: [PERRLA and EOMI.] ENT: Nares clear, no rhinorrhea or epistaxis. Mucous membranes moist. NECK: Supple. CHEST: [Clear to auscultation. No respiratory distress.] HEART: [Regular rate and rhythm]. No murmur heard. [Normal peripheral pulses.] ABDOMEN: [Soft, nondistended], [nontender], [No rigidity or guarding] EXTREMITIES: Normal range of motion. [No edema.] SKIN: Warm, dry, no rash. Ganglion cyst located dorsal aspect of his right hand NEURO: [No focal deficits]. Alert and oriented [x3.] PSYCH: [Normal mood and affect.] Course Vital Signs Vital signs: Vital Signs Temperature 36.8 C 08/12/24 14:40 Pulse Rate 73 08/12/24 14:40 Respiratory Rate 18 08/12/24 14:40 Blood Pressure 138/89 08/12/24 14:40 Pulse Oximetry 99 08/12/24 14:40 Temperature 36.8 C 08/12/24 14:40 Pulse Rate 73 08/12/24 14:40 Respiratory Rate 18 08/12/24 14:40 Blood Pressure 138/89 08/12/24 14:40 Pulse Oximetry 99 08/12/24 14:40 MDM - Chest Pain MDM Narrative Medical decision making narrative: 54-year-old male with history of hyperlipidemia presenting to the emergency department for evaluation of chest pain radiating down his arm. He has no cardiac disease history to himself but states that he has a family member the chest of a heart attack and was concerned. Denies any nausea, vomiting, abdominal pain. No shortness of breath. No respiratory distress. No back pain. He has symmetric 2+ radial pulses, warm well-perfused extremities and clear breath sounds throughout. Reproducible pain in his sternum with no significant chest tenderness on palpation. No overlying skin changes. Vital signs reassuring without any tachycardia, fever or hypoxia. A cardiac workup was ordered this time including CBC, CMP, lipase, troponin, chest x-ray and EKG. Suspicion presently is for musculoskeletal chest pain, costochondritis, low suspicion pneumothorax, pneumonia or ACS. No risk factors for PE. D-dimer ordered. Workup reveals no leukocytosis or anemia. Normal platelet count. Coagulation panel within normal limits, D-dimer negative. Electrolytes within normal limits, normal renal and hepatic function panel. Negative troponin. Negative lipase. Chest x-ray independently reviewed and also interpreted by Radiology without any acute cardiopulmonary process. EKG obtained shows sinus rhythm and left axis deviation. He has a chronic appearing T-wave inversion lead 3 and when compared to prior EKGs this is stable without any interval change. No signs of acute occlusive FL. Patient re-evaluated asymptomatic at this time. He is safe and stable for discharge home at this time with regular PCP follow-up. Patient did inquire about some prescription medications for his sinus congestion that he has been dealing with which was provided for him upon discharge. Medical Records Data Attestation: I reviewed the patient's medical records. Lab Data Attestation: I reviewed the patient's lab results. 08/12/24 15:13 08/12/24 15:13 Labs: Lab Results 08/12/24 Range/Units 15:13 WBC 6.9 (4.5-10.0) K/mm3 RBC 5.76 (4.6-6.20) M/mm3 Hgb 16.6 (14.0-18.0) g/dL Hct 51.1 (42.0-52.0) % MCV 88.7 (80-100) fl MCH 28.8 (26-34) pg MCHC 32.5 (32-36) g/dl RDW 14.5 (11.5-14.5) % Plt Count 204 (150-375) k/mm3 MPV 9.6 (7.4-10.4) fl Immature Gran % (Auto) 0.3 (0-0.5) % Neut % (Auto) 50.8 (45.5-73.1) % Lymph % (Auto) 36.8 (18.3-44.2) % [place] % (Auto) 7.1 (2.6-8.5) % Eos % (Auto) 3.3 (0-4.4) % Baso % (Auto) 1.7 H (0.2-1.2) % Lymph # (Auto) 2.55 (0.9-3.2) K/mm3 [place] # (Auto) 0.5 (0.1-0.6) K/mm3 Eos # (Auto) 0.2 (0-0.3) K/mm3 Baso # (Auto) 0.1 (0.0-0.1) K/mm3 Abs Immat Gran (auto) 0.02 (0.00-0.031) K/mm3 Absolute Neuts (auto) 3.5 (1.3-6.7) K/mm3 Absolute Nucleated RBC 0.000 (0.0-0.012) K/mm3 Nucleated RBC % 0.0 (0.0-0.2) % PT 12.7 (11.1-14.7) Seconds INR 0.9 APTT 28.1 (22.3-36.8) Seconds D-Dimer < 0.27 (<0.48) ug/mL Sodium 139 (137-145) mmol/L Potassium 4.4 (3.4-5.0) mmol/L Chloride 107 (98-107) mmol/L Carbon Dioxide 23 (22-30) mmol/L Anion Gap 9 (4-12) mmol/L BUN 15 (9-20) mg/dL Creatinine 1.14 (0.7-1.3) mg/dL Estim Creat Clear Calc 64 ml/min Estimated GFR > 60 (59 - ) Glucose 90 (65-110) mg/dL Calcium 9.0 (8.4-10.2) mg/dL Total Bilirubin 0.6 (0.2-1.3) mg/dL AST 42 (17-59) U/L ALT 37 (6-50) U/L Alkaline Phosphatase 68 (38-126) U/L Troponin I < 0.012 (0.000-0.034) ng/mL Total Protein 8.0 (6.3-8.2) g/dL Albumin 4.3 (3.5-5.1) g/dL Lipase 81 (23-300) U/L Imaging Data Attestation: I personally reviewed and interpreted this imaging study as follows: My impression: Impressions Chest X-Ray 08/12/24 15:18 IMPRESSION: No acute cardiopulmonary pathology. ECG Data EKG #1: Attestation: I personally reviewed and interpreted this ECG as follows: ECG completion date: 08/12/24 ECG completion time: 14:38 Prior ECG tracings: available for review Interpretation: No ST segment elevations, depressions. Inversion in lead 3 which is chronic compared to old EKGs without any interval change. No ectopy. Regular rate, leftward deviated axis, no signs of acute occlusive event. QTC 09/03/2074, QRS 90, TN 140. Overall sinus rhythm without any acute ischemia Discharge Plan Discharge Clinical Impression: Chest pain, Costalchondritis Patient Disposition: Home, Self-Care Condition: Stable Instructions: Antibiotic Form, Costochondritis (ED), Chest Wall Pain (ED) Additional Instructions: Your cardiac workup was reassuring, no troponin elevation or elevated D-dimer. Normal laboratory studies. EKG shows no concerning findings, chest x-ray clear. Follow-up with regular doctor, return with any new or worsening concerns. At your request we did send some prescription medication options for your sinus congestion. Patient Language: Maldivian Prescriptions: New loratadine [Claritin] 10 mg tablet 10 mg PO DAILY PRN (Reason: allergic symptoms) Qty: 30 0RF fluticasone propionate [Flonase Allergy Relief] 50 mcg/actuation spray,suspension 1 spray intranasal DAILY Qty: 16 0RF Rx Instructions: administer into each nostril No Action ibuprofen 800 mg tablet 800 mg PO Q6H PRN (Reason: pain) Qty: 30 0RF cyclobenzaprine 5 mg tablet 5 mg PO QID PRN (Reason: back spsms) loratadine 10 mg tablet 10 mg PO DAILY Qty: 30 0RF (DME) Aerochamber MV Spacer See Rx Instructions .Route Qty: 1 0RF Rx Instructions: As directed albuterol sulfate 90 mcg/actuation HFA aerosol inhaler 2 puff inhalation QID PRN (Reason: shortness of breath or wheezing) Qty: 6.7 0RF prednisone 20 mg tablet See Rx Instructions .Route .COMPLEX Qty: 9 0RF Rx Instructions: Take 40 mg daily for 3 days, 20 mg daily for 3 days tamsulosin [Flomax] 0.4 mg capsule 0.4 mg PO DAILY Qty: 14 0RF Follow-up/Referrals: Arun Crump MD [Primary Care Provider] -
[2024-08-12 17:18] VITALS: PULSE 78; RESP 18; TEMP 36.6; O2SAT 100
--- OUTSIDE RECORDS SUMMARY | 2024-08-12 17:41 | XMS_ITS | Continuity of Care Document ---
Author Organization [facility] Address [address] [place] [address] [address] [place] [address] Phone Care Team Providers Care Ball Mill Operator Name Role Phone Rosa Mansfield Unavailable Unavailable Procedures Procedure Date Remove Eyelid Lesion Advance Directives Directive Yes / No Effective Date File Name No Information Encounters Encounter Description Practice Location Reason(s) For Visit Diagnoses Date Provider Providers Copied on Encounter [facility], [address] [place] [address] [address], [place], [place], [id number], [place] tel:[phone] [facility] No Information Aug-0 6-200 7 Shyla Lee. [address] , [address], [place], [address], [place]. tel:[phone] Family History Family Member Type Diagnosis Age At Onset No Information Payers Payer name Insurance type Covered republican ID Authoriza tion(s) No Information Social History [...]
--- OUTSIDE RECORDS SUMMARY | 2024-08-12 17:41 | XMS_ITS | Continuity of Care Document ---
Author Organization [facility] Address [address] [facility] [address] [place] [address] Phone Care Team Providers Care Assembler Wet Wash Name Role Phone Harinder Appiah MD Unavailable Unavailable Procedures Procedure Date Special Narrative Report Work/medical disability examination ROGELIO X-ray exam of neck spine2-3 views Advance Directives Directive Yes / No Effective Date File Name No Information Encounters Encounter Description Practice Location Reason(s) For Visit Diagnoses Date Provider Providers Copied on Encounter [facility], [address], [address] [place] [address], tel:[phone] [facility] [employer] [facility] No Information 7-201 0 T[address] Pizano. [address], [address] [place] [address] , . tel: [phone] Work/medical disability examination ROGELIO [facility] [employer] [facility], [address] [place] [address], [address] [place] [address], tel:[phone] [facility] [employer] [facility] No Information [address]. 1050 [facility], [address], [id number] , [place]. tel: [phone] Family History Family Member Type Diagnosis Age At Onset No Information Payers Payer name Insurance type Covered democrat ID Kathi ilmon(jose luis) [employer] [id number] Social History Type Description Quantity Date Captured [...]
== END 2024-08-12 17:22 | disposition home or self-care (01) ==
PROVIDERS: Emergency Provider Student in an Organized Health Care Education/Training Program; PCP Emergency Medicine
DX: R07.2 Precordial pain (principal); M94.0 Chondrocostal junction syndrome [Tietze]; E78.5 Hyperlipidemia, unspecified; K21.9 Gastro-esophageal reflux disease without esophagitis; F17.210 Nicotine dependence, cigarettes, uncomplicated
CPT/HCPCS: 36415; 71046; 80053; 83690; 84484; 85025; 85380; 85610; 85730; 93005; 99284; A9270

== ENCOUNTER 2024-10-06 07:35 | Emergency (ER) | payer OTHER, MEDICAID, SELFPAY ==
--- OUTSIDE RECORDS SUMMARY | 2024-10-06 07:38 | XMS_ITS | Continuity of Care Document ---
Author Organization [facility] Address [address] [facility] 100 [place] [address] Phone Care Team Providers Care Personnel Arbitrator Name Role Phone Harinder Appiah MD Unavailable Unavailable Procedures Procedure Date Special Narrative Report Work/medical disability examination ROGELIO X-ray exam of neck spine2-3 views Advance Directives Directive Yes / No Effective Date File Name No Information Encounters Encounter Description Practice Location Reason(s) For Visit Diagnoses Date Provider Providers Copied on Encounter [facility], [address], [address] [place] [address], tel:[phone] [facility] No Information 7-201 0 [address] Pizano. [address], [address] [place] [address] , . tel: [phone] Work/medical disability examination ROGELIO [facility], [address] [place] [address], [address] [place] [address], tel:[phone] [facility] No Information [address]. 1050 [facility], [address], [id number] , [place]. tel: [phone] Family History Family Member Type Diagnosis Age At Onset No Information Payers Payer name Insurance type Covered republican ID Kathi limon(jose luis) [employer] [id number] Social History Type Description Quantity Date Captured [...]
--- OUTSIDE RECORDS SUMMARY | 2024-10-06 07:38 | XMS_ITS | Continuity of Care Document ---
Author Organization [facility] Address [address] [place] [address] [address] [place] [address] Phone Care Team Providers Care Ocular Care Technologist Name Role Phone Rosa Mansfield Unavailable Unavailable Procedures Procedure Date Remove Eyelid Lesion Advance Directives Directive Yes / No Effective Date File Name No Information Encounters Encounter Description Practice Location Reason(s) For Visit Diagnoses Date Provider Providers Copied on Encounter [facility], [address] [place] [address] [address], [place], [place], [id number], [place] tel:[phone] [facility] No Information Aug-0 6-200 7 Shyla Lee. [address] , [address], [place], [address], [place]. tel:[phone] Family History Family Member Type Diagnosis Age [...]
[2024-10-06 07:39] VITALS: BP 129/88; PULSE 67; RESP 16; TEMP 36.6; O2SAT 100
--- OUTSIDE RECORDS SUMMARY | 2024-10-06 07:52 | XMS_ITS | Continuity of Care Document ---
Author Organization [facility] Address [address] [place] [address] [address] [place] [address] Phone Care Team Providers Care Design Sales Consultant Name Role Phone Rosa Mansfield Unavailable Unavailable Procedures Procedure Date Remove Eyelid Lesion Advance Directives Directive Yes / No Effective Date File Name No Information Encounters Encounter Description Practice Location Reason(s) For Visit Diagnoses Date Provider Providers Copied on Encounter [facility], [address] [place] [address] [address], [place], [place], [id number], [place] tel:[phone] [facility] No Information Aug-0 6-200 7 Shyla Lee. [address] , [address], [place], [address], [place]. tel:[phone] Family History Family Member Type Diagnosis Age At Onset No Information Payers Payer name Insurance type Covered alliance party ID Authoriza tion(s) No Information Social [...]
--- OUTSIDE RECORDS SUMMARY | 2024-10-06 07:52 | XMS_ITS | Continuity of Care Document ---
Author Organization [facility] Address [address] [facility] 100 [place] [address] Phone Care Team Providers Care Traffic Engineering Director Name Role Phone Harinder Appiah MD Unavailable Unavailable Procedures Procedure Date Special Narrative Report Work/medical disability examination ROGELIO X-ray exam of neck spine2-3 views Advance Directives Directive Yes / No Effective Date File Name No Information Encounters Encounter Description Practice Location Reason(s) For Visit Diagnoses Date Provider Providers Copied on Encounter [facility], [address], [address] [place] [address], tel:[phone] [facility] No Information 7-201 0 [address] Pizano. [address], [address] [place] [address] , . tel: [phone] Work/medical disability examination ROGELIO [facility], [address] [place] [address], [address] [place] [address], tel:[phone] [facility] No Information 2200 [address]. 1050 [facility], [address], [id number] , [place]. tel: [phone] Family History Family Member Type Diagnosis Age At Onset No Information Payers Payer name Insurance type Covered republican ID Kathi limon(jose luis) [employer] [id number] Social History Type Description Quantity Date Captured [...]
--- NOTE | 2024-10-06 08:10 | ED.NECK ---
HPI - Neck Pain/Injury General Chief Complaint: Neck Pain/Injury Stated Complaint: neck pain Time Seen by Provider: 10/06/24 07:44 History of Present Illness HPI Narrative: Pt presents with neck pain in his posterior neck for a few days getting worse. Pt says he slept on it wrong initially but it is getting worse. Pt den ies numbness or weakness or any trauma. Related Data Home Medications ?Medication ?Instructions ?Recorded ?Confirmed ?Last Taken ?Type cyclobenzaprine 5 mg tablet 5 mg PO QID PRN back spsms 10/26/23 10/26/23 Unknown History Allergies Allergy/AdvReac Type Severity Reaction Status Date / Time No Known Allergies Allergy Verified 10/06/24 07:44 Review of Systems Review of Systems: All systems reviewed & are unremarkable except as noted in HPI and below PMFSH Past Medical History Medical History (Updated 10/06/24 @ 08:14 by Alex Kent III, DO) Anxiety Back pain Shoulder fracture, right GERD (gastroesophageal reflux disease) Hyperlipemia Sinus problem Surgical History Surgical History History of back surgery History of shoulder surgery right shoulder Fx repair Family History Family History Sibling Hypertension Mother Cancer Social History Social History Smoking packs per day: 0.5 Smoking cigarettes per day: 10.0 Smoking status: Smoker, status unknown Second hand tobacco smoke exposure: No Alcohol intake: current Substance use: current Substance use type: marijuana Living arrangements: with family Gender identity (if verbalized by the patient): Male Exam Const: General: healthy appearing and no acute distress Nutritional Appearance: well nourished Orientation/consciousness: patient oriented x3 Limitations: no limitations Neck: Neck: normal visual inspection Other: pt has muscle spasm c3-4 level on left Resp: Effort & Inspection: normal respiratory effort Auscultation: clear to auscultation bilaterally Cardio: Rate: regular rate Rhythm: regular rhythm Skin: General skin exam: normal color Rashes: no rashes Wounds: no wounds Neuro: General: patient oriented x3, moves all extremities and CN's II-XI intact bilaterally Speech: normal speech Extrem: General: normal to inspection and no clubbing, cyanosis or edema Psych: Mental Status: mental status grossly normal Affect: normal affect Attitude: cooperative Course Vital Signs Vital signs: Vital Signs Temperature 98 F 10/06/24 07:39 Pulse Rate 67 10/06/24 07:39 Respiratory Rate 16 10/06/24 07:39 Blood Pressure 129/88 10/06/24 07:39 Pulse Oximetry 100 10/06/24 07:39 Oxygen Delivery Room Air 10/06/24 07:39 Temperature 98 F 10/06/24 07:39 Pulse Rate 67 10/06/24 07:39 Respiratory Rate 16 10/06/24 07:39 Blood Pressure 129/88 10/06/24 07:39 Pulse Oximetry 100 10/06/24 07:39 Oxygen Delivery Room Air 10/06/24 07:39 MDM - Neck Pain/Injury MDM Narrative Medical decision making narrative: Pt has muscle spasm in neck causing pain. can't get ride so will give toradol here and prescribe valium and motrin and give two days off work. Discharge Plan Discharge Clinical Impression: Strain of neck muscle Patient Disposition: Home Condition: Stable Instructions: Antibiotic Form, Cervical Strain (ED), Spasmodic Torticollis (ED) Patient Language: Yoruba Prescriptions: New ibuprofen 800 mg tablet 800 mg PO TID Qty: 30 0RF diazepam [Valium] 5 mg tablet 5 mg PO TID PRN (Reason: muscle spasm) Qty: 14 0RF No Action ibuprofen 800 mg tablet 800 mg PO Q6H PRN (Reason: pain) Qty: 30 0RF cyclobenzaprine 5 mg tablet 5 mg PO QID PRN (Reason: back spsms) loratadine 10 mg tablet 10 mg PO DAILY Qty: 30 0RF (DME) Aerochamber MV Spacer See Rx Instructions .Route Qty: 1 0RF Rx Instructions: As directed albuterol sulfate 90 mcg/actuation HFA aerosol inhaler 2 puff inhalation QID PRN (Reason: shortness of breath or wheezing) Qty: 6.7 0RF prednisone 20 mg tablet See Rx Instructions .Route .COMPLEX Qty: 9 0RF Rx Instructions: Take 40 mg daily for 3 days, 20 mg daily for 3 days loratadine [Claritin] 10 mg tablet 10 mg PO DAILY PRN (Reason: allergic symptoms) Qty: 30 0RF fluticasone propionate [Flonase Allergy Relief] 50 mcg/actuation spray,suspension 1 spray intranasal DAILY Qty: 16 0RF Rx Instructions: administer into each nostril tamsulosin [Flomax] 0.4 mg capsule 0.4 mg PO DAILY Qty: 14 0RF Follow-up/Referrals: Arun Crump MD [Primary Care Provider] - Stand Alone Forms: Work/School Release IP
[2024-10-06] MEDS: KETOROLAC 30 MG/ML VIAL (*BKC) IM (08:14)
== END 2024-10-06 08:23 | disposition home or self-care (01) ==
PROVIDERS: Emergency Provider Emergency Medicine; PCP Emergency Medicine
DX: S16.1XXA Strain of muscle, fascia and tendon at neck level, initial encounter (principal); F41.9 Anxiety disorder, unspecified; K21.9 Gastro-esophageal reflux disease without esophagitis; E78.5 Hyperlipidemia, unspecified; X50.1XXA Overexertion from prolonged static or awkward postures, initial encounter
CPT/HCPCS: 96372; 99283; J1885

== ENCOUNTER 2024-10-14 00:41 | Emergency (ER) | payer OTHER, MEDICAID, SELFPAY ==
--- OUTSIDE RECORDS SUMMARY | 2024-10-14 00:43 | XMS_ITS | Continuity of Care Document ---
Author Organization [facility] Address [address] [place] [address] [address] [place] [address] Phone Care Team Providers Care Irrigation Foreman Name Role Phone Rosa Mansfield Unavailable Unavailable Procedures Procedure Date Remove Eyelid Lesion Advance Directives Directive Yes / No Effective Date File Name No Information Encounters Encounter Description Practice Location Reason(s) For Visit Diagnoses Date Provider Providers Copied on Encounter [facility], [address] [place] [address] [address], [place], [place], [id number], [place] tel:[phone] [facility] No Information Aug-0 6-200 7 Shyla Lee. [address] , [address], [place], [address], [place]. tel:[phone] Family History Family Member Type Diagnosis Age [...]
--- OUTSIDE RECORDS SUMMARY | 2024-10-14 00:43 | XMS_ITS | Continuity of Care Document ---
Author Organization [facility] Address [address] [facility] [address] [place] [address] Phone Care Team Providers Care Archaeologist Name Role Phone Harinder Appiah MD Unavailable Unavailable Procedures Procedure Date Special Narrative Report Work/medical disability examination ROGELIO X-ray exam of neck spine2-3 views Advance Directives Directive Yes / No Effective Date File Name No Information Encounters Encounter Description Practice Location Reason(s) For Visit Diagnoses Date Provider Providers Copied on Encounter [facility], [address], [address] [place] [address], tel:[phone] [facility] No Information 7-[address] Pizano. [address], [address] [place] [address] , . tel: [phone] Work/medical disability examination ROGELIO [facility], [address] [place] [address], [address] [place] [address], tel:[phone] [facility] No Information [address] 1050 [facility], [address], [id number] , [place]. tel: [phone] Family History Family Member Type Diagnosis Age At Onset No Information Payers Payer name Insurance type Covered libertarian ID Kathi limon(jose luis) [employer] [id number] Social History Type Description Quantity Date Captured [...]
[2024-10-14 00:46] VITALS: BP 148/98; PULSE 77; RESP 18; O2SAT 99
--- NOTE | 2024-10-14 01:01 | ED_ITS ---
HPI - Dental/Oral General Chief complaint: Dental/Oral Stated complaint: left jaw pain Time Seen by Provider: 10/14/24 00:43 Source: patient Mode of arrival: ambulatory Limitations: no limitations History of Present Illness HPI Narrative: Patient is a 54-year-old male who presents the ED with report of lower dental pain. Patient reports since Saturday, he has been having pain around his left front lower tooth, tooth number 24. States pain radiates throughout his left lower gumline. He had worsening pain tonight despite taking ibuprofen, which prompted his presentation. Denies difficulty breathing or swallowing, drainage from tooth, fevers, shortness of breath. Related Data Home Medications Medication Instructions Recorded Confirmed Last Taken Type cyclobenzaprine 5 mg tablet 5 mg PO QID PRN back spsms 10/26/23 10/26/23 Unknown History Allergies Allergy/AdvReac Type Severity Reaction Status Date / Time No Known Allergies Allergy Verified 10/14/24 00:48 Review of Systems Review of Systems: All systems reviewed & are unremarkable except as noted in HPI. All systems reviewed & are unremarkable except as noted in HPI and below PMFSH Past Medical History Medical History Anxiety Back pain Shoulder fracture, right GERD (gastroesophageal reflux disease) Hyperlipemia Sinus problem Surgical History Surgical History History of back surgery History of shoulder surgery right shoulder Fx repair Family History Family History Sibling Hypertension Mother Cancer Social History Social History Smoking packs per day: 0.5 Smoking cigarettes per day: 10.0 Smoking status: Smoker, status unknown Second hand tobacco smoke exposure: No Alcohol intake: current Substance use: current Substance use type: marijuana Living arrangements: with family Gender identity (if verbalized by the patient): Male Exam Narrative: GENERAL: Well appearing, well-nourished, non-toxic, in no acute distress. HEAD: Normocephalic, atraumatic. ENT: Mild dental decay present throughout lower teeth. TTP along gumline surrounding tooth #24. No focal fluctuance or drainage. No evidence of abscess. No induration of submandibular region. No swelling of floor of mouth or tongue. Maintaining secretions. No trismus or stridor. RESPIRATORY: Airway patent, respirations nonlabored. No distress. CARDIOVASCULAR: Regular rate and rhythm MUSCULOSKELETAL: Moves all extremities. No gross deformities. SKIN: Warm, dry, normal color. NEURO: A&O X3. Speech clear. PSYCHIATRIC: Appropriate mood and affect. Normal interaction. Course Vital Signs Vital signs: Vital Signs Pulse Rate 77 10/14/24 00:46 Respiratory Rate 18 10/14/24 00:46 Blood Pressure 148/98 H 10/14/24 00:46 Pulse Oximetry 99 10/14/24 00:46 Pulse Rate 77 10/14/24 00:46 Respiratory Rate 18 10/14/24 00:46 Blood Pressure 148/98 H 10/14/24 00:46 Pulse Oximetry 99 10/14/24 00:46 MDM - Dental/Oral MDM Narrative Medical decision making narrative: Patient's pain is consistent with dental caries. There are no focal signs of space-occupying abscess. The patient is controlling secretions well without signs of airway compromise. Patient is felt reasonable for outpatient follow-up with dental evaluation. Will be started on Augmentin. Given list of dentists. Will provide short course of pain medicine for home. Given return precautions. Discharged in stable condition. Medical Records Attestation: I reviewed the patient's medical records. Discharge Plan Discharge Clinical Impression: Toothache Patient Disposition: Home Condition: Stable Instructions: Antibiotic Form, Toothache (ED) Additional Instructions: Take antibiotics as prescribed. Stay well hydrated. Continue Tylenol and ibuprofen as needed for pain. [place] as needed for more severe pain. Follow-up with dentist for further evaluation. Return to the ED for worsening symptoms, difficulty breathing or swallowing, unable to keep down food or drink, or any other symptoms of concern. Patient Language: Citizen Of [place] Prescriptions: New hydrocodone-acetaminophen 5-325 mg tablet 1 tablet PO Q6H PRN (Reason: pain) Qty: 5 0RF amoxicillin-pot clavulanate 875-125 mg tablet 1 tablet PO Q12H 7 Days Qty: 14 0RF No Action ibuprofen 800 mg tablet 800 mg PO Q6H PRN (Reason: pain) Qty: 30 0RF cyclobenzaprine 5 mg tablet 5 mg PO QID PRN (Reason: back spsms) loratadine 10 mg tablet 10 mg PO DAILY Qty: 30 0RF (DME) Aerochamber MV Spacer See Rx Instructions .Route Qty: 1 0RF Rx Instructions: As directed albuterol sulfate 90 mcg/actuation HFA aerosol inhaler 2 puff inhalation QID PRN (Reason: shortness of breath or wheezing) Qty: 6.7 0RF prednisone 20 mg tablet See Rx Instructions .Route .COMPLEX Qty: 9 0RF Rx Instructions: Take 40 mg daily for 3 days, 20 mg daily for 3 days loratadine [Claritin] 10 mg tablet 10 mg PO DAILY PRN (Reason: allergic symptoms) Qty: 30 0RF fluticasone propionate [Flonase Allergy Relief] 50 mcg/actuation spray,suspension 1 spray intranasal DAILY Qty: 16 0RF Rx Instructions: administer into each nostril tamsulosin [Flomax] 0.4 mg capsule 0.4 mg PO DAILY Qty: 14 0RF ibuprofen 800 mg tablet 800 mg PO TID Qty: 30 0RF diazepam [Valium] 5 mg tablet 5 mg PO TID PRN (Reason: muscle spasm) Qty: 14 0RF Follow-up/Referrals: Arun Crump MD [Primary Care Provider] - Time of Disposition: 01:11
--- OUTSIDE RECORDS SUMMARY | 2024-10-14 01:15 | XMS_ITS | Continuity of Care Document ---
Author Organization [facility] Address [address] [place] [address] [address] [place] [address] Phone Care Team Providers Care Banking Services Advisor Name Role Phone Rosa Mansfield Unavailable Unavailable Procedures Procedure Date Remove Eyelid Lesion Advance Directives Directive Yes / No Effective Date File Name No Information Encounters Encounter Description Practice Location Reason(s) For Visit Diagnoses Date Provider Providers Copied on Encounter [facility], [id number] [place] [address] [address], [place], [place], [id number], [place] tel:[phone] [facility] No Information Aug-0 6-200 7 Shyla Lee. [address] , [address], [place], [address], [place]. tel:[phone] Family History Family Member Type Diagnosis Age At Onset No Information Payers Payer name Insurance type Covered green party ID Authoriza tion(s) No Information Social [...]
--- OUTSIDE RECORDS SUMMARY | 2024-10-14 01:15 | XMS_ITS | Continuity of Care Document ---
Author Organization [facility] Address [address] [facility] [address] [place] [address] Phone Care Team Providers Care Customer Experience Leader Name Role Phone Harinder Appiah MD Unavailable Unavailable Procedures Procedure Date Special Narrative Report Work/medical disability examination ROGELIO X-ray exam of neck spine2-3 views Advance Directives Directive Yes / No Effective Date File Name No Information Encounters Encounter Description Practice Location Reason(s) For Visit Diagnoses Date Provider Providers Copied on Encounter [facility], [address], [address] [place] [address], tel:[phone] [facility] No Information 7-[address]. [address], [address] [place] [address] , . tel: [phone] Work/medical disability examination ROGELIO [facility], [address] [place] [address], [address] [place] [address], tel:[phone] [facility] No Information [address] 1050 [facility], [address], [id number] , [place]. tel: [phone] Family History Family Member Type Diagnosis Age At Onset No Information Payers Payer name Insurance type Covered constitution party ID Kathi limon(jose luis) [employer] [id number] Social History Type Description Quantity Date Captured [...]
[2024-10-14] MEDS: ACETAMINOPHEN 500 MG TABLET 1000 MG PO (01:31)
[2024-10-14] MEDS: AMOXICILLIN/CLAVULANATE K 875-125 MG TAB 1 TABLET PO (01:32)
== END 2024-10-14 01:36 | disposition home or self-care (01) ==
LOC: ANHED 01:13
PROVIDERS: Emergency Provider Physician Assistant; PCP Emergency Medicine
DX: K08.89 Other specified disorders of teeth and supporting structures (principal); E78.5 Hyperlipidemia, unspecified; K21.9 Gastro-esophageal reflux disease without esophagitis; F41.9 Anxiety disorder, unspecified; F17.210 Nicotine dependence, cigarettes, uncomplicated; Z79.899 Other long term (current) drug therapy
CPT/HCPCS: 99283; A9270

== ENCOUNTER 2025-02-25 08:47 | Emergency (ER) | payer OTHER, MEDICAID, SELFPAY ==
--- NOTE | 2025-02-25 09:02 | ED_ITS ---
HPI - Extremity Problem General Chief complaint: Wound/Laceration Stated complaint: knot on rt leg Time Seen by Provider: 02/25/25 09:09 Source: patient, RN notes reviewed and old records reviewed Mode of arrival: ambulatory Limitations: no limitations History of Present Illness HPI Narrative: 54-year-old male presents to the [facility] with redness, mild swelling, open sore to the right lower leg. Wears an ankle monitor he reports for alcohol and has an open sore with surrounding erythema underneath it. States he had the same issue with the opposite leg when he wore the monitor there Denies any fever. No drainage. Onset (ago): day(s) (2-3) Related Data Allergies Allergy/AdvReac Type Severity Reaction Status Date / Time No Known Allergies Allergy Verified 02/25/25 09:08 Review of Systems 2 Review of Systems: All systems reviewed & are unremarkable except as noted in HPI and below Constitutional: Constitutional: Reports no additional constitutional complaints Musculoskeletal: Musculoskeletal: Reports no additional musculoskeletal complaints Integumentary/Breasts: Skin/Breast: Reports as per HPI PMFSH Past Medical History Medical History (Updated 02/25/25 @ 12:45 by Pepper Hoffman APRN) Anxiety Back pain Shoulder fracture, right GERD (gastroesophageal reflux disease) Hyperlipemia Sinus problem Surgical History Surgical History History of back surgery History of shoulder surgery right shoulder Fx repair Family History Family History Sibling Hypertension Mother Cancer Social History Social History Smoking packs per day: 0.5 Smoking cigarettes per day: 10.0 Smoking status: Smoker, status unknown Second hand tobacco smoke exposure: No Alcohol intake: current Substance use: current Substance use type: marijuana Living arrangements: with family Gender identity (if verbalized by the patient): Male Comments At the time of my signature, I reviewed and agree with the nursing past medical, surgical, social, and family history. There is no relevant family history pertinent to the patient complaint. Exam 2 Const: General: cooperative, healthy appearing, comfortable, no acute distress, well developed, alert and well nourished Nutritional Appearance: w ell nourished Orientation/consciousness: patient oriented x3 Limitations: no limitations HENMT: Head: normal to inspection Eyes: General: appearance normal, both eyes and all related structures A lignment and Position: alignment normal Neck: Neck: normal visual inspection, full ROM, no lymphadenopathy and no meningeal signs Chest: Chest palpation & inspection: normal inspection of the chest Resp: Effort & Inspection: normal respiratory effort and able to speak in complete sentences Cardio: Rate: regular rate Skin: General skin exam: normal color Full body images: 1. 5cm open wound without drainage. Surrounding erythema measures up to 7 cm. Mild swelling to the site. Has an ankle monitor in place. Neuro: General: patient oriented x3, gait normal, moves all extremities and no meningeal signs Cognition (Neuro): normal cognition Speech: normal speech Gait exam (Neuro): Normal gait present Extrem: General: normal to inspection, full ROM, capillary refill normal and normal gait Right lower extremity: knee Details: normal to inspection, lower leg Details: localized swelling, ankle Details: normal ROM and abrasion and foot Details: normal capillary refill, normal to inspection and toes with normal ROM; no tenderness Psych: Appearance: grossly normal and well kempt Mental Status: mental status grossly normal Speech and movement: Normal speech and movement present and Clear speech present Affect: normal affect Attitude: cooperative Course Course Level of Care: Express Care Visit Vital Signs Vital signs: Vital Signs Temperature 97.2 F L 02/25/25 09:08 Pulse Rate 70 02/25/25 09:08 Respiratory Rate 18 02/25/25 09:08 Blood Pressure 135/122 H 02/25/25 09:08 Pulse Oximetry 98 02/25/25 09:08 Oxygen Delivery Room Air 02/25/25 09:08 Temperature 97.2 F L 02/25/25 09:08 Pulse Rate 70 02/25/25 09:08 Respiratory Rate 18 02/25/25 09:08 Blood Pressure 135/122 H 02/25/25 09:08 Pulse Oximetry 98 02/25/25 09:08 Oxygen Delivery Room Air 02/25/25 09:08 Reviewed MDM - Extremity (Nontraumatic) MDM Narrative Medical decision making narrative: Patient sitting in exam. Patient is nontoxic vitals stable. Patient presents with to 2-3 day history skin swelling, redness, open sore. Had 1 the opposite leg which is healed. Does have an alcohol leg monitor in place. Open sore noted with surrounding erythema. Antibiotic prescribed for probable cellulitis Patient is appropriate for outpatient treatment with close follow-up Discharge instructions reviewed with patient, as well as provided in writing per nursing staff. The instructions also include specific and strict return/GO TO THE ER as well as f/u information. All questions have been answered, and the patient deny any further questions with discharge and discharge plan. Some parts of this dictation were generated by voice recognition software and may contain typographical and/or grammatical inaccuracies. Differential Diagnosis Differential diagnosis: Likely cellulitis and other (Skin ulceration, abrasion) Critical Care Time Critical Care Time Critical Care Time: No Discharge Plan Discharge Clinical Impression: Cellulitis Qualifiers: Site of cellulitis: extremity Site of cellulitis of extremity: lower extremity Laterality: right Qualified Code(s): L03.115 - Cellulitis of right lower limb Patient Disposition: Home Condition: Stable Instructions: Antibiotic Form, Cellulitis (ED) Additional Instructions: Keep area clean and dry. Wash with warm soapy water, tried a pat dry. Follow up with whoever put or ankle monitor on to try to have it removed or loosened. Keeping it in place the wound may not heal. For worsening symptoms go directly to emergency Patient Language: Estonian Prescriptions: New sulfamethoxazole-trimethoprim [Bactrim DS] 800-160 mg tablet 1 tablet PO Q12H Qty: 14 0RF Follow-up/Referrals: Arun Crump MD [Physician, Family Practice] - 2 Weeks UNKNOWN,DOCTOR [Primary Care Provider] Time of Disposition: 09:20
[2025-02-25 09:08] VITALS: BP 135/122; PULSE 70; RESP 18; TEMP 36.2; O2SAT 98
== END 2025-02-25 09:28 | disposition home or self-care (01) ==
PROVIDERS: Emergency Provider Nurse Practitioner
DX: L03.115 Cellulitis of right lower limb (principal); E78.5 Hyperlipidemia, unspecified; F17.210 Nicotine dependence, cigarettes, uncomplicated
CPT/HCPCS: 99213; G0463

== ENCOUNTER 2025-04-04 18:50 | Emergency (ER) | payer OTHER, MEDICAID, SELFPAY ==
--- OUTSIDE RECORDS SUMMARY | 2006-08-06 10:09 | XMS_ITS | Continuity of Care Document ---
Author Organization [facility] Address [address] [place] [address] [address] [place] [address] Phone Care Team Providers Care Options Advisor Name Role Phone Rosa Mansfield Unavailable Unavailable Procedures Procedure Date Remove Eyelid Lesion Advance Directives Directive Yes / No Effective Date File Name No Information Encounters Encounter Description Practice Location Reason(s) For Visit Diagnoses Date Provider Providers Copied on Encounter [facility], [id number] [place] [address] [address], [place], [place], [id number], [place] tel:[phone] [facility] No Information Aug-0 6-200 7 Shyla Lee. [address] , [address], [place], [address], [place]. tel:[phone] Family History Family Member Type Diagnosis Age At Onset No Information Payers Payer name Insurance type Covered libertarian ID Authoriza tion(s) No Information Social History Type Description Quantity Date Captured Comments Sex Male Smoking Status No Information Chief Complaint And Reason For Visit No Information Reason For Referral Reason For Referral No Information History Of Present Illness Encounter Date Complaint History Of Prese nt Illness No Information Functional Status Date Functional Assessmen t No Information Instructions Date Instruction Additional Infor mation No Information Assessments Type Assessment Date No Information Patient Care Teams Name Effective Dates (start - stop) Status Members No Information
--- OUTSIDE RECORDS SUMMARY | 2006-08-06 10:09 | XMS_ITS | Continuity of Care Document ---
Author Organization [facility] Address [address] [place] [address] [address] [place] [address] Phone Care Team Providers Care Technical Business Analyst Name Role Phone Rosa Mansfield Unavailable Unavailable Procedures Procedure Date Remove Eyelid Lesion Advance Directives Directive Yes / No Effective Date File Name No Information Encounters Encounter Description Practice Location Reason(s) For Visit Diagnoses Date Provider Providers Copied on Encounter [facility], [id number] [place] [address] [address], [place], [place], [id number], [place] tel:[phone] [facility] No Information Aug-0 6-200 7 Shyla Lee. [address] , [address], [place], [address], [place]. tel:[phone] Family History Family Member Type Diagnosis Age [...]
--- OUTSIDE RECORDS SUMMARY | 2009-06-09 06:00 | XMS_ITS | Continuity of Care Document ---
Author Organization [facility] Address [address] [facility] [address] [place] [address] Phone Care Team Providers Care Construction Services Technician Name Role Phone Harinder Appiah MD Unavailable Unavailable Procedures Procedure Date Special Narrative Report Work/medical disability examination ROGELIO X-ray exam of neck spine2-3 views Advance Directives Directive Yes / No Effective Date File Name No Information Encounters Encounter Description Practice Location Reason(s) For Visit Diagnoses Date Provider Providers Copied on Encounter [facility], [address], [address] [place] [address], tel:[phone] [facility] [employer] [facility] No Information 7-201 0 [address] Pizano. [address], [address] [place] [address] , . tel: [phone] Work/medical disability examination ROGELIO [facility] [employer] [facility], [address] [place] [address], [address] [place] [address], tel:[phone] [facility] [employer] [facility] No Information [address] 1050 [facility], [address], [id number] , [place]. tel: [phone] Family History Family Member Type Diagnosis Age At Onset No Information Payers Payer name Insurance type Covered republican ID Kathi limon(jose luis) [employer] [id number] Social History Type Description Quantity Date Captured [...]
--- OUTSIDE RECORDS SUMMARY | 2009-06-09 06:00 | XMS_ITS | Continuity of Care Document ---
Author Organization [facility] Address [address] [facility] [address] [place] [address] Phone Care Team Providers Care Edger Machine Helper Name Role Phone Harinder Appiah MD Unavailable Unavailable Procedures Procedure Date Special Narrative Report Work/medical disability examination ROGELIO X-ray exam of neck spine2-3 views Advance Directives Directive Yes / No Effective Date File Name No Information Encounters Encounter Description Practice Location Reason(s) For Visit Diagnoses Date Provider Providers Copied on Encounter [facility], [address], [address] [place] [address], tel:[phone] [facility] [employer] [facility] No Information 7-[address]. [address], [address] [place] [address] , . tel: [phone] Work/medical disability examination ROGELIO [facility] [employer] [facility], [address] [place] [address], [address] [place] [address], tel:[phone] [facility] [employer] [facility] No Information [address] 1050 [facility], [address], [id number] , [place]. tel: [phone] Family History Family Member Type Diagnosis Age At Onset No Information Payers Payer name Insurance type Covered republican ID Kathi limon(jose luis) [employer] [id number] Social History Type Description Quantity Date Captured [...]
[2025-04-04 18:50] VITALS: BP 120/78; PULSE 84; RESP 16; TEMP 36.6; O2SAT 100
[2025-04-04 21:28] LABS: Hematocrit 52.8 % (42.0-52.0); Hemoglobin 17.0 g/dL (14.0-18.0); Immature Granulocyte Percent A 0.3 % (0-0.5); Lymphocytes Absolute Auto 2.60 K/mm3 (0.9-3.2); Mean Corpuscular HGB Conc 32.2 g/dl (32-36); Mean Corpuscular Hemoglobin 27.8 pg (26-34); Mean Corpuscular Volume 86.4 fl (80-100); Nucleated Red Blood Cells Absolute Auto 0.000 K/mm3 (0.0-0.012); Nucleated Red Blood Cells Perc 0.0 % (0.0-0.2); Platelet Count Result 192 k/mm3 (150-375); Red Blood Count 6.11 M/mm3 (4.6-6.20); White Blood Count 7.2 K/mm3 (4.5-10.0)
[2025-04-04 21:39] LABS: Alanine Aminotransferase 35 U/L (6-50); Albumin Level 4.5 g/dL (3.5-5.1); Alkaline Phosphatase 67 U/L (38-126); Anion Gap 6 mmol/L (4-12); Aspartate Amino Transferase 42 U/L (17-59); Bilirubin,Total 0.7 mg/dL (0.2-1.3); Blood Urea Nitrogen 14 mg/dL (9-20); Calcium 9.1 mg/dL (8.4-10.2); Carbon Dioxide 26 mmol/L (22-30); Chloride 105 mmol/L (98-107); Creatine Kinase 352 U/L (55-170); Estimated CRCL calculation 67 ml/min; Estimated Glomerular Filt Rate > 60; Glucose 86 mg/dL (65-110); Magnesium 2.1 mg/dL (1.6-2.3); Potassium 4.7 mmol/L (3.4-5.0); Sodium 137 mmol/L (137-145); Total Protein 8.2 g/dL (6.3-8.2)
[2025-04-04 21:48] LABS: Add Urine Microscopic? YES; Appearance Urine Clear (Clear); Glucose Urine UA Negative (Negative); Leukocyte Esterase Ur 2+ LEU/UL (Negative); Nitrate Urine Negative (Negative); Non Pathogenic Casts 0-2; Specific Grav Ur 1.019 (1.001-1.035)
[2025-04-04] MEDS: CARBAMIDE PEROXIDE 6.5% OT SOLN 15 ML BTL 5 DROP LEFT EAR (22:00)
--- NOTE | 2025-04-04 22:29 | ED_ITS ---
HPI - General Adult General Chief complaint: Extremity Problem,Nontraumatic Stated complaint: R leg cramps Time Seen by Provider: 04/04/25 21:01 History of Present Illness HPI narrative: 54-year-old male presenting with multiple chief complaints. He states he has been having some leg cramps as he has been on the job been working 80 hours a week and having some muscle cramps in his thighs. States he tries to stay well hydrated but thinks he could be dehydrated. Endorses darkening urine and stinging with urination. Thinks he could potentially have an STI. He also has been complaining of any itchy face and scalp he attributes to weather changes and also complain of ringing in his left ear. No traumatic injuries and was otherwise in his normal state of health. Does not take any chronic medications. No recent health concerns or changes otherwise. States the only thing he really came for was the dysuria which he is concerned about. Related Data Allergies Allergy/AdvReac Type Severity Reaction Status Date / Time No Known Allergies Allergy Verified 04/04/25 21:14 Review of Systems 2 Review of Systems: As reviewed above in HPI [facility] Past Medical History Medical History (Updated 04/04/25 @ 23:30 by Juvenal Chow MD) Anxiety Back pain Shoulder fracture, right GERD (gastroesophageal reflux disease) Hyperlipemia Sinus problem Surgical History Surgical History History of back surgery History of shoulder surgery right shoulder Fx repair Family History Family History Sibling Hypertension Mother Cancer Social History Social History Smoking packs per day: 0.5 Smoking cigarettes per day: 10.0 Smoking status: Smoker, status unknown Second hand tobacco smoke exposure: No Alcohol intake: current Substance use: current Substance use type: marijuana Living arrangements: with family Gender identity (if verbalized by the patient): Male Exam 2 Narrative: GENERAL: [Well-appearing, well-nourished, and in no acute distress.] HEAD: [Normocephalic, atraumatic.] EYES: [PERRLA and EOMI.] ENT: Nares clear, no rhinorrhea or epistaxis. Mucous membranes moist. Right- sided tympanic membrane is clear, left-sided tympanic membrane has cerumen impaction but no signs of otitis or infection. No proptosis. NECK: Supple. CHEST: [Clear to auscultation. No respiratory distress.] HEART: [Regular rate and rhythm]. No murmur heard. [Normal peripheral pulses.] ABDOMEN: [Soft, nondistended], [nontender], [No rigidity or guarding] EXTREMITIES: Normal range of motion. No calf asymmetry or edema. Soft calves without any pain. Ambulatory without difficulty. SKIN: Dry skin in the scalp and around the nose but otherwise warm and dry extremities with no appreciable rash. NEURO: [No focal deficits]. Alert and oriented [x3.] PSYCH: [Normal mood and affect.] Course Vital Signs Vital signs: Vital Signs Temperature 36.6 C 04/04/25 18:50 Pulse Rate 84 04/04/25 18:50 Respiratory Rate 16 04/04/25 18:50 Blood Pressure 120/78 04/04/25 18:50 Pulse Oximetry 100 04/04/25 18:50 Temperature 36.6 C 04/04/25 18:50 Pulse Rate 75 04/04/25 23:59 Respiratory Rate 18 04/04/25 23:59 Blood Pressure 110/85 04/04/25 23:59 Pulse Oximetry 97 04/04/25 23:59 Medical Decision Making [facility] Narrative Medical decision making narrative: 54-year-old male presenting with multiple chief complaints. He states he has been having some leg cramps as he has been on the job been working 80 hours a week and having some muscle cramps in his thighs. States he tries to stay well hydrated but thinks he could be dehydrated. Endorses darkening urine and stinging with urination. Thinks he could potentially have an STI. He also has been complaining of any itchy face and scalp he attributes to weather changes and also complain of ringing in his left ear. No traumatic injuries and was otherwise in his normal state of health. Does not take any chronic medications. No recent health concerns or changes otherwise. States the only thing he really came for was the dysuria which he is concerned about. Patient is overall very well-appearing with normal vital signs here. His symptoms do not sound related and he admits that he does want to get all his complaints checked out during 1 visit. Mainly concerned about his dysuria which sounds like it could be urethritis versus urinary tract infection. Will obtain urinalysis and STD testing. Basic laboratory studies and CPK ordered given the muscle cramping and potential dehydration. Low suspicion of rhabdomyolysis. Patient is tolerating oral intake. Laboratory studies showed no leukocytosis or anemia. Normal platelet count. Electrolytes are unremarkable. Normal creatinine, normal renal function. CPK mildly elevated at 350 but not consistent with rhabdo. LFTs normal. Urinalysis shows white blood cells and leukocyte esterase but no bacteria. Patient tested positive for Neisseria gonorrhea. Negative for chlamydia and Trichomonas. Will be treated for gonorrhea and encouraged maintain good oral hydration as he has been exerting himself recently at work for long hours. Safe for discharge with PCP follow-up after antibiotic regimen and discharged with oral antibiotics. Vital Signs Vital Signs: Vital Signs Temperature 36.6 C 04/04/25 18:50 Pulse Rate 84 04/04/25 18:50 Respiratory Rate 16 04/04/25 18:50 Blood Pressure 120/78 04/04/25 18:50 Pulse Oximetry 100 04/04/25 18:50 Temperature 36.6 C 04/04/25 18:50 Pulse Rate 75 04/04/25 23:59 Respiratory Rate 18 04/04/25 23:59 Blood Pressure 110/85 04/04/25 23:59 Pulse Oximetry 97 04/04/25 23:59 Lab Data Lab results reviewed: Yes I reviewed the patient's lab results. 04/04/25 21:16 04/04/25 21:16 Labs: Lab Results 04/04/25 04/04/25 Range/Units 21:16 21:37 WBC 7.2 (4.5-10.0) K/mm3 RBC 6.11 (4.6-6.20) M/mm3 Hgb 17.0 (14.0-18.0) g/dL Hct 52.8 H (42.0-52.0) % MCV 86.4 (80-100) fl MCH 27.8 (26-34) pg MCHC 32.2 (32-36) g/dl RDW 14.8 H (11.5-14.5) % Plt Count 192 (150-375) k/mm3 MPV 9.7 (7.4-10.4) fl Immature Gran % (Auto) 0.3 (0-0.5) % Neut % (Auto) 51.4 (45.5-73.1) % Lymph % (Auto) 36.2 (18.3-44.2) % [place] % (Auto) 7.4 (2.6-8.5) % Eos % (Auto) 3.3 (0-4.4) % Baso % (Auto) 1.4 H (0.2-1.2) % Lymph # (Auto) 2.60 (0.9-3.2) K/mm3 [place] # (Auto) 0.5 (0.1-0.6) K/mm3 Eos # (Auto) 0.2 (0-0.3) K/mm3 Baso # (Auto) 0.1 (0.0-0.1) K/mm3 Abs Immat Gran (auto) 0.02 (0.00-0.031) K/mm3 Absolute Neuts (auto) 3.7 (1.3-6.7) K/mm3 Absolute Nucleated RBC 0.000 (0.0-0.012) K/mm3 Nucleated RBC % 0.0 (0.0-0.2) % Sodium 137 (137-145) mmol/L Potassium 4.7 (3.4-5.0) mmol/L Chloride 105 (98-107) mmol/L Carbon Dioxide 26 (22-30) mmol/L Anion Gap 6 (4-12) mmol/L BUN 14 (9-20) mg/dL Creatinine 1.09 (0.7-1.3) mg/dL Estim Creat Clear Calc 67 ml/min Estimated GFR > 60 (59 - ) Glucose 86 (65-110) mg/dL Calcium 9.1 (8.4-10.2) mg/dL Magnesium 2.1 (1.6-2.3) mg/dL Total Bilirubin 0.7 (0.2-1.3) mg/dL AST 42 (17-59) U/L ALT 35 (6-50) U/L Alkaline Phosphatase 67 (38-126) U/L Total Creatine Kinase 352 H (55-170) U/L Total Protein 8.2 (6.3-8.2) g/dL Albumin 4.5 (3.5-5.1) g/dL Urine Color Yellow (Yellow) Urine Appearance Clear (Clear) Urine pH 5.0 (5.0-9.0) Ur Specific [place] 1.019 (1.001-1.035) Urine Protein Negative (Negative) mg/dL Urine Glucose (UA) Negative (Negative) mg/dL Urine Ketones Negative (Negative) mg/dL Ur Blood (Man) Trace (Negative) Urine Nitrate Negative (Negative) Urine Bilirubin Negative (Negative) Urine Urobilinogen 0.2 (<2.0) mg/dL Leukocyte Esterase Rfl 2+ H (Negative) SHAHID/UL Urine RBC 0-2 (0-2) /hpf Urine WBC 51-100 H (0-3) /hpf Ur Squamous Epith Cells None seen (Few) /hpf Urine Bacteria None seen /hpf Urine Casts 0-2 C. trachomatis (PCR) Not detected (NOT DETECTE) N. gonorrhoeae (PCR) Detected A (NOT DETECTE) T. vaginalis (PCR) Not detected (NOT DETECTE) Discharge Plan Discharge Clinical Impression: Gonorrhea, Urethritis, Elevated CPK Patient Disposition: Home Condition: Stable Instructions: Antibiotic Form, Gonorrhea (ED), Rhabdomyolysis (ED) Additional Instructions: You tested positive for gonorrhea which explains your symptoms. We will send you home with antibiotics and started you on the course of regimen here. You also have some elevated muscle enzymes consistent with over exertion, no signs of organ damage or kidney disease. No signs of systemic infection. Maintain good oral hydration and refrain from over exerting yourself to allow for muscles to rest. Tylenol and ibuprofen and oral hydration recommended. Patient Language: Thai Prescriptions: New doxycycline hyclate 100 mg capsule 100 mg PO BID 7 Days Qty: 14 0RF No Action sulfamethoxazole-trimethoprim [Bactrim DS] 800-160 mg tablet 1 tablet PO Q12H Qty: 14 0RF Follow-up/Referrals: UNKNOWN,DOCTOR [Primary Care Provider] Time of Disposition: 23:32
[2025-04-04 22:48] LABS: Trichomonas Vag PCR NOT DETECTED (NOT DETECTE)
[2025-04-04] MEDS: DOXYCYCLINE HYCLATE 100 MG TABLET PO (23:48)
[2025-04-04] MEDS: LIDOCAINE 1% LOCAL INJ 10 ML VIAL (23:48)
[2025-04-04] MEDS: cefTRIAXone 1 GM VIAL 0.5 GM IM (23:48)
[2025-04-04 23:59] VITALS: BP 110/85; PULSE 75; RESP 18; O2SAT 97
== END 2025-04-05 | disposition home or self-care (01) ==
PROVIDERS: Emergency Provider Student in an Organized Health Care Education/Training Program
DX: A54.01 Gonococcal cystitis and urethritis, unspecified (principal); R74.8 Abnormal levels of other serum enzymes; E78.5 Hyperlipidemia, unspecified; K21.9 Gastro-esophageal reflux disease without esophagitis; F17.210 Nicotine dependence, cigarettes, uncomplicated
CPT/HCPCS: 36415; 80053; 81001; 82550; 83735; 85025; 87086; 87491; 87591; 87661; 96372; 99283; A9270; J0696; J2003